=== PATIENT | female | born 1950 | race African-American/Black ===

== ENCOUNTER 2016-06-14 11:03 | Inpatient (IN) | payer OTHER ==
[2016-06-14 12:07] VITALS: BMI 28.3
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
[2016-06-14] MEDS ORDERED: guaiFENesin/D-METHORPHAN HB 10 ML UNIT-DOSE CUPS PO PRN (15:55)
[2016-06-14] MEDS ORDERED: ACETAMINOPHEN 325 MG TABLET (FP) PO PRN (15:55)
[2016-06-14] MEDS ORDERED: MAGNESIUM HYDROX 2400MG/30ML ORAL SUSPENSION 30 ML CUP PO PRN (15:55)
[2016-06-14] MEDS ORDERED: LOPERAMIDE HCL 2 MG CAPSULE PO PRN (15:55)
[2016-06-14] MEDS ORDERED: IBUPROFEN 400 MG TABLET (FP) PO PRN (15:55)
[2016-06-14] MEDS ORDERED: chlordiazePOXIDE HCL 25 MG CAPSULE PO PRN (15:55)
[2016-06-14] MEDS ORDERED: MENTHOL/PHENOL 1 EACH UD MM PRN (15:55)
[2016-06-14] MEDS ORDERED: MAGNESIUM CITRATE 300 ML BOTTLE PO PRN (15:55)
[2016-06-14] MEDS ORDERED: MAG HYDROX/AL HYDROX/SIMETH 30 ML UNIT-DOSE CUP PO PRN (15:55)
[2016-06-14] MEDS ORDERED: NICOTINE POLACRILEX 4 MG GUM BC PRN (15:55)
[2016-06-14] MEDS ORDERED: ALBUTEROL SO4 6.7 GM HFA INHALER IH PRN (16:15)
[2016-06-14] MEDS ORDERED: METHADONE HCL 10 MG TABLET (FOR DETOX USE ONLY) PO ONE ×2 (16:30→23:00)
[2016-06-14] MEDS ORDERED: HYDROCHLOROTHIAZIDE 12.5 MG CAPSULE (FP) PO SCH (16:45)
[2016-06-14] MEDS: HYDROCHLOROTHIAZIDE 25 MG TABLET (FP) PO SCH (16:46)
[2016-06-14] MEDS: NICOTINE 21 MG/24 HOURS TOPICAL PATCH TD SCH (16:48)
[2016-06-14] MEDS: chlordiazePOXIDE HCL 25 MG CAPSULE PO SCH ×2 (17:02→22:37)
[2016-06-14 18:05] LABS: URINE APPEARANCE CLEAR; URINE BILIRUBIN NEGATIVE (NEGATIVE); URINE BLOOD NEGATIVE (NEGATIVE); URINE COLOR LTYELLOW; URINE GLUCOSE (UA) NEGATIVE (NEGATIVE); URINE KETONE NEGATIVE (NEGATIVE); URINE LEUK ESTERASE NEGATIVE (NEGATIVE); URINE NITRITE NEGATIVE (NEGATIVE); URINE PROTEIN NEGATIVE (NEGATIVE); URINE UROBILINOGEN NEGATIVE E.U./dl (0.2-1.0)
[2016-06-14] MEDS: P-EPHED 60MG/TRIPROLIDI 2.5MG TABLET PO PRN (19:41)
[2016-06-14] MEDS: THIAMINE HCL 100 MG TABLET (FP) PO SCH (22:37)
[2016-06-15] MEDS: chlordiazePOXIDE HCL 25 MG CAPSULE PO SCH ×4 (05:45→22:25)
[2016-06-15 09:42] LABS: MCH 33.5 pg (25.7-33.7); MCHC 33.1 g/dl (32.0-36.0); MEAN CELL VOLUME 101.2 fl (80-96); MEAN PLT VOLUME 9.9 fl (7.5-11.1); PLATELET COUNT 269 K/MM3 (134-434); RDW 13.8 % (11.6-15.6); WHITE BLOOD COUNT 6.9 K/mm3 (4.0-10.0)
[2016-06-15] MEDS ORDERED: METHADONE HCL 10 MG TABLET (FOR DETOX USE ONLY) PO SCH (10:00)
[2016-06-15 10:13] LABS: ALBUMIN 3.2 g/dl (3.4-5.0); ALK PHOS 93 U/L (45-117); ANION GAP 12 (8-16); BILIRUBIN,TOTAL 0.5 mg/dL (0.2-1.0); CO2 24 mmol/L (21-32); CREATININE 0.8 mg/dL (0.55-1.02); GLUCOSE,RANDOM 95 mg/dL (74-106); SGOT/AST 36 U/L (15-37); SGPT/ALT 43 U/L (12-78); TOT PROT 7.1 g/dl (6.4-8.2)
[2016-06-15] MEDS: HYDROCHLOROTHIAZIDE 25 MG TABLET (FP) PO SCH (10:30)
[2016-06-15] MEDS: PRENATAL VITAMINS W/ FOLIC ACID TABLET (FP) PO SCH (10:30)
[2016-06-15] MEDS: P-EPHED 60MG/TRIPROLIDI 2.5MG TABLET PO PRN ×2 (10:32→22:26)
[2016-06-15] MEDS: NICOTINE 21 MG/24 HOURS TOPICAL PATCH TD SCH (10:32)
[2016-06-15 10:40] LABS: SICKLE CELL SCREEN NEGATIVE (NEGATIVE)
[2016-06-15] MEDS ORDERED: ONDANSETRON *ODT* 4 MG TABLET SL PRN (10:49)
--- NOTE | 2016-06-15 10:57 | PN ---
[facility] CIWA - CIWA Score Nausea/Vomitin-Int. Nausea w/Dry Heave Muscle Tremors: 2 Anxiety: 3 Agitation: 3 Paroxysmal Sweats: 3 Orientation: 0-Oriented Tacttile Disturbances: 2-Mild Itch/Numbness/Burn Auditory Disturbances: 0-None Visual Disturbances: 0-None Headache: 0-None Present CIWA-Ar Total Score: 17 S COWS - Scale Resting Pulse: 0= [place] 80 or Below Sweatin= Chills/Flushing Restless Observation: 1= Difficult to Sit Still Pupil Size: 1= Pupils >than Normal Bone or Joint Aches: 2= Severe Diffuse Aches Runny Nose/ Eye Tearin= Nasal Congestion GI Upset > 30mins: 2= Nausea/Diarrhea Tremor Observation of Outstretched Hands: 1= Tremor [place], Not Seen Yawning Observation: 1= 1-2x During Session Anxiety or Irritability: 2=Irritable/Anxious Goose Flesh Skin: 0=Smooth Skin COWS Score: 12 [facility] Progress Note (SOAP) Subjective: interrrupted sleep,sweats, shakes ,arthritis, Objective: 06/15/16 10:56 Vital Signs Temperature 97.9 F 06/15/16 10:53 Pulse Rate 77 06/15/16 10:53 Respiratory Rate 16 06/15/16 10:53 Blood Pressure 135/87 06/15/16 10:53 O2 Sat by Pulse Oximetry (%) Laboratory Tests 06/14/16 06/15/16 06/15/16 13:00 06:00 06:00 WBC 6.9 RBC 4.03 Hgb 13.5 Hct 40.8 MCV 101.2 H MCHC 33.1 RDW 13.8 Plt Count 269 MPV 9.9 Sickle Cell Screen Negative Sodium 143 Potassium 3.8 Chloride 107 Carbon Dioxide 24 Anion Gap 12 BUN 15 Creatinine 0.8 Creat Clearance w eGFR > 60 Random Glucose 95 Calcium 9.0 Total Bilirubin 0.5 AST 36 ALT 43 Alkaline Phosphatase 93 Total Protein 7.1 Albumin 3.2 L Urine Color Ltyellow Urine Appearance Clear Urine pH 6.0 Ur Specific [place] 1.018 Urine Protein Negative Urine Glucose (UA) Negative Urine Ketones Negative Urine Blood Negative Urine Nitrite Negative Urine Bilirubin Negative Urine Urobilinogen Negative Ur Leukocyte Esterase Negative pt aox3 , irritable Assessment: 06/15/16 10:57 withdrawal sxs Plan: cont. detox increase fluids zofran prn flexeril 10mg tid/prn
[2016-06-15] MEDS ORDERED: INFLUENZA VACCINE 45 MCG/0.5 ML (MDV 16-17) IM ONE (12:00)
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
[2016-06-15 19:52] LABS: URINE APPEARANCE CLEAR; URINE BILIRUBIN NEGATIVE (NEGATIVE); URINE BLOOD NEGATIVE (NEGATIVE); URINE COLOR LTYELLOW; URINE GLUCOSE (UA) NEGATIVE (NEGATIVE); URINE KETONE NEGATIVE (NEGATIVE); URINE LEUK ESTERASE NEGATIVE (NEGATIVE); URINE NITRITE NEGATIVE (NEGATIVE); URINE PROTEIN NEGATIVE (NEGATIVE); URINE UROBILINOGEN NEGATIVE E.U./dl (0.2-1.0)
[2016-06-15] MEDS: CYCLOBENZAPRINE HCL 10 MG TABLET (FP) PO PRN (22:24)
[2016-06-15] MEDS: THIAMINE HCL 100 MG TABLET (FP) PO SCH (22:24)
--- NOTE | 2016-06-15 23:39 | EKG ---
Test Reason : Blood Pressure : / mmHG Vent. Rate : 048 BPM Atrial Rate : 048 BPM P-R Int : 150 ms QRS Dur : 090 ms QT Int : 464 ms P-R-T Axes : 058 029 049 degrees QTc Int : 414 ms SINUS BRADYCARDIA POSSIBLE LEFT ATRIAL ENLARGEMENT ANTERIOR INFARCT , AGE UNDETERMINED ABNORMAL ECG NO PREVIOUS ECGS AVAILABLE Confirmed by GABBY FAUST, KATELYN ([id number]) on 06/15/2016 11:39:17 PM Referred By: Confirmed By:KATELYN PIERRE MD
[2016-06-16] MEDS: chlordiazePOXIDE HCL 25 MG CAPSULE PO SCH ×2 (07:59→10:30)
--- NOTE | 2016-06-16 10:09 | EKG ---
Test Reason : Blood Pressure : / mmHG Vent. Rate : 068 BPM Atrial Rate : 068 BPM P-R Int : 142 ms QRS Dur : 088 ms QT Int : 444 ms P-R-T Axes : 066 025 065 degrees QTc Int : 472 ms NORMAL SINUS RHYTHM POSSIBLE LEFT ATRIAL ENLARGEMENT NONSPECIFIC ST AND T WAVE ABNORMALITY ABNORMAL ECG WHEN COMPARED WITH ECG OF 14-JUN-2016 16:01, T WAVE INVERSION NO LONGER EVIDENT IN ANTERIOR LEADS NONSPECIFIC T WAVE ABNORMALITY NOW EVIDENT IN LATERAL LEADS QT HAS LENGTHENED Confirmed by MITZY FAUST, SHOLA ([id number]) on 06/16/2016 10:08:55 AM Referred By: Confirmed By:SHOLA FORRESTER MD
[2016-06-16] MEDS: PRENATAL VITAMINS W/ FOLIC ACID TABLET (FP) PO SCH (10:30)
[2016-06-16] MEDS: METHADONE HCL 5 MG TABLET (FOR DETOX USE ONLY) PO SCH (10:30)
[2016-06-16] MEDS: NICOTINE 21 MG/24 HOURS TOPICAL PATCH TD SCH (10:30)
[2016-06-16] MEDS: HYDROCHLOROTHIAZIDE 25 MG TABLET (FP) PO SCH (10:30)
--- NOTE | 2016-06-16 11:01 | PN ---
[facility] CIWA - CIWA Score Nausea/Vomitin-No Nausea/No Vomiting Muscle Tremors: 4-Moderate,w/Arms Extend Anxiety: 3 Agitation: 4-Moderately Restless Paroxysmal Sweats: 3 Orientation: 0-Oriented Tacttile Disturbances: 0-None Auditory Disturbances: 0-None Visual Disturbances: 0-None Headache: 1-Very Mild CIWA-Ar Total Score: 15 [facility] COWS - Scale Resting Pulse: 0= [place] 80 or Below Sweatin=Flushed/Facial Moisture Restless Observation: 1= Difficult to Sit Still Pupil Size: 0= Normal to Room Light Bone or Joint Aches: 2= Severe Diffuse Aches Runny Nose/ Eye Tearin= None GI Upset > 30mins: 2= Nausea/Diarrhea Tremor Observation of Outstretched Hands: 2= Slight Tremor Visible Yawning Observation: 2= >3x During Session Anxiety or Irritability: 2=Irritable/Anxious Goose Flesh Skin: 3=[place] COWS Score: 16 S Progress Note (SOAP) Subjective: sweats nausea body aches irritable Objective: 06/16/16 11:00 Vital Signs Temperature 99.0 F 06/16/16 10:02 Pulse Rate 70 06/16/16 10:02 Respiratory Rate 16 06/16/16 10:02 Blood Pressure 139/92 06/16/16 10:02 O2 Sat by Pulse Oximetry (%) Laboratory Tests 06/14/16 06/15/16 06/15/16 13:00 06:00 06:00 WBC 6.9 RBC 4.03 Hgb 13.5 Hct 40.8 MCV 101.2 H MCHC 33.1 RDW 13.8 Plt Count 269 MPV 9.9 Sickle Cell Screen Negative Sodium 143 Potassium 3.8 Chloride 107 Carbon Dioxide 24 Anion Gap 12 BUN 15 Creatinine 0.8 Creat Clearance w eGFR > 60 Random Glucose 95 Calcium 9.0 Total Bilirubin 0.5 AST 36 ALT 43 Alkaline Phosphatase 93 Total Protein 7.1 Albumin 3.2 L Urine Color Ltyellow Urine Appearance Clear Urine pH 6.0 Ur Specific [place] 1.018 Urine Protein Negative Urine Glucose (UA) Negative Urine Ketones Negative Urine Blood Negative Urine Nitrite Negative Urine Bilirubin Negative Urine Urobilinogen Negative Ur Leukocyte Esterase Negative RPR Titer 06/15/16 06/15/16 06:00 19:37 WBC RBC Hgb Hct MCV MCHC RDW Plt Count MPV Sickle Cell Screen Sodium Potassium Chloride Carbon Dioxide Anion Gap BUN Creatinine Creat Clearance w eGFR Random Glucose Calcium Total Bilirubin AST ALT Alkaline Phosphatase Total Protein Albumin Urine Color Ltyellow Urine Appearance Clear Urine pH 5.0 Ur Specific [place] 1.016 Urine Protein Negative Urine Glucose (UA) Negative Urine Ketones Negative Urine Blood Negative Urine Nitrite Negative Urine Bilirubin Negative Urine Urobilinogen Negative Ur Leukocyte Esterase Negative RPR Titer Nonreactive awake/alert ambulating no acute distress Assessment: 06/16/16 11:01 withdrawal sx Plan: continue detox increase fluids zofran prn
[2016-06-16] MEDS: chlordiazePOXIDE 5 MG CAPSULE PO SCH ×2 (17:46→22:22)
[2016-06-16] MEDS: FLUOCINONIDE 0.05% CREAM (15 GM TUBE) TP SCH ×3 (17:54→22:58)
[2016-06-16] MEDS: CYCLOBENZAPRINE HCL 10 MG TABLET (FP) PO PRN (22:22)
[2016-06-16] MEDS: diphenhydrAMINE HCL 50 MG CAPSULE PO PRN (22:23)
[2016-06-16] MEDS: THIAMINE HCL 100 MG TABLET (FP) PO SCH (22:23)
[2016-06-17] MEDS: chlordiazePOXIDE 5 MG CAPSULE PO SCH ×2 (05:58→10:56)
--- NOTE | 2016-06-17 10:31 | PN ---
[facility] Progress Note (SOAP) Subjective: sweats shakes diarrhea Objective: 06/17/16 10:31 Vital Signs Temperature 98.1 F 06/17/16 06:29 Pulse Rate 75 06/17/16 06:29 Respiratory Rate 18 06/17/16 06:29 Blood Pressure 110/71 06/17/16 06:29 O2 Sat by Pulse Oximetry (%) awake/alert ambulating no acute distress Assessment: 06/17/16 10:36 withdrawal sx Plan: continue detox increase fluids immodium prn
[2016-06-17] MEDS: FLUOCINONIDE 0.05% CREAM (15 GM TUBE) TP SCH ×4 (10:55→23:33)
[2016-06-17] MEDS: PRENATAL VITAMINS W/ FOLIC ACID TABLET (FP) PO SCH (10:56)
[2016-06-17] MEDS: HYDROCHLOROTHIAZIDE 25 MG TABLET (FP) PO SCH (10:56)
[2016-06-17] MEDS: METHADONE HCL 5 MG TABLET (FOR DETOX USE ONLY) PO SCH (10:56)
[2016-06-17] MEDS: NICOTINE 21 MG/24 HOURS TOPICAL PATCH TD SCH (10:56)
[2016-06-17] MEDS: chlordiazePOXIDE HCL 10 MG CAPSULE PO SCH ×2 (17:54→22:28)
[2016-06-17] MEDS: CYCLOBENZAPRINE HCL 10 MG TABLET (FP) PO PRN (22:28)
[2016-06-17] MEDS: THIAMINE HCL 100 MG TABLET (FP) PO SCH (22:28)
[2016-06-17] MEDS: diphenhydrAMINE HCL 50 MG CAPSULE PO PRN (22:29)
[2016-06-18] MEDS: P-EPHED 60MG/TRIPROLIDI 2.5MG TABLET PO PRN (00:42)
[2016-06-18] MEDS: chlordiazePOXIDE HCL 10 MG CAPSULE PO SCH ×2 (05:31→10:16)
[2016-06-18] MEDS ORDERED: METHADONE HCL 10 MG TABLET (FOR DETOX USE ONLY) PO SCH (10:00)
[2016-06-18] MEDS: PRENATAL VITAMINS W/ FOLIC ACID TABLET (FP) PO SCH (10:16)
[2016-06-18] MEDS: HYDROCHLOROTHIAZIDE 25 MG TABLET (FP) PO SCH (10:16)
[2016-06-18] MEDS: NICOTINE 21 MG/24 HOURS TOPICAL PATCH TD SCH (10:16)
[2016-06-18] MEDS: FLUOCINONIDE 0.05% CREAM (15 GM TUBE) TP SCH ×4 (10:17→22:53)
--- NOTE | 2016-06-18 11:07 | PN ---
[facility] Progress Note (SOAP) Subjective: sweats anxious Objective: 06/18/16 11:06 Vital Signs Temperature 98.1 F 06/18/16 10:11 Pulse Rate 82 06/18/16 10:11 Respiratory Rate 16 06/18/16 10:11 Blood Pressure 118/75 06/18/16 10:11 O2 Sat by Pulse Oximetry (%) awake/alert ambulating no acute distress Assessment: 06/18/16 11:06 withdrawal sx Plan: continue detox increase fluids d/c in am
--- NOTE | 2016-06-18 20:25 | PN ---
[id number] peer, alert oiented x 3, ambulate with walker, denies pain denies alteration sensory motor function right inner tight skin intact no redness none tender, no burn olga lidia noted continue detox
[2016-06-18] MEDS: diphenhydrAMINE HCL 50 MG CAPSULE PO PRN (22:52)
[2016-06-18] MEDS: CYCLOBENZAPRINE HCL 10 MG TABLET (FP) PO PRN (22:52)
[2016-06-18] MEDS: THIAMINE HCL 100 MG TABLET (FP) PO SCH (22:52)
[2016-06-19] MEDS ORDERED: METHADONE HCL 5 MG TABLET (FOR DETOX USE ONLY) PO SCH (06:00)
[2016-06-19 07:01] VITALS: BP 131/56; PULSE 71; TEMP 98.8
--- NOTE | 2016-06-19 17:03 | DS ---
[facility] Detox Discharge Summary Admission Date: 06/14/16 Discharge Date: 06/19/16 - History Present History: Alcohol Dependence, Opioid Dependence Additional Comments: ADVISED PATIENT TO FOLLOW-UP WITH [facility] / REHAB MEDICAL PROVIDER AFTER DISCHARGE FROM DETOX FOR GENERAL MEDICAL ASSESSMENT AND FOR ABNORMAL ADMISSION LAB VALUES. Pertinent Past History: Asthma, HTN. - Physical Exam Results Vital Signs: Vital Signs Temperature 98.8 F 06/19/16 06:00 Pulse Rate 71 06/19/16 06:00 Respiratory Rate 18 06/19/16 06:00 Blood Pressure 131/56 06/19/16 06:00 O2 Sat by Pulse Oximetry (%) Pertinent Admission Physical Exam Findings: WITHDRAWAL SYMPTOMS. Laboratory Last Values WBC 6.9 K/mm3 (4.0-10.0) 06/15/16 06:00 RBC 4.03 M/mm3 (3.60-5.2) 06/15/16 06:00 Hgb 13.5 GM/dL (10.7-15.3) 06/15/16 06:00 Hct 40.8 % (32.4-45.2) 06/15/16 06:00 MCV 101.2 fl (80-96) H 06/15/16 06:00 MCHC 33.1 g/dl (32.0-36.0) 06/15/16 06:00 RDW 13.8 % (11.6-15.6) 06/15/16 06:00 Plt Count 269 K/MM3 (134-434) 06/15/16 06:00 MPV 9.9 fl (7.5-11.1) 06/15/16 06:00 Sickle Cell Screen Negative (NEGATIVE) 06/15/16 06:00 Sodium 143 mmol/L (136-145) 06/15/16 06:00 Potassium 3.8 mmol/L (3.5-5.1) 06/15/16 06:00 Chloride 107 mmol/L (98-107) 06/15/16 06:00 Carbon Dioxide 24 mmol/L (21-32) 06/15/16 06:00 Anion Gap 12 (8-16) 06/15/16 06:00 BUN 15 mg/dL (7-18) 06/15/16 06:00 Creatinine 0.8 mg/dL (0.55-1.02) 06/15/16 06:00 Creat Clearance w eGFR > 60 (>60) 06/15/16 06:00 POC Glucometer 123 UNITS (()) 06/17/16 15:47 Random Glucose 95 mg/dL (74-106) 06/15/16 06:00 Calcium 9.0 mg/dL (8.5-10.1) 06/15/16 06:00 Total Bilirubin 0.5 mg/dL (0.2-1.0) 06/15/16 06:00 AST 36 U/L (15-37) 06/15/16 06:00 ALT 43 U/L (12-78) 06/15/16 06:00 Alkaline Phosphatase 93 U/L (45-117) 06/15/16 06:00 Total Protein 7.1 g/dl (6.4-8.2) 06/15/16 06:00 Albumin 3.2 g/dl (3.4-5.0) L 06/15/16 06:00 Urine Color Ltyellow 06/15/16 19:37 Urine Appearance Clear 06/15/16 19:37 Urine pH 5.0 (5.0-8.0) 06/15/16 19:37 Ur Specific [place] 1.016 (1.001-1.035) 06/15/16 19:37 Urine Protein Negative (NEGATIVE) 06/15/16 19:37 Urine Glucose (UA) Negative (NEGATIVE) 06/15/16 19:37 Urine Ketones Negative (NEGATIVE) 06/15/16 19:37 Urine Blood Negative (NEGATIVE) 06/15/16 19:37 Urine Nitrite Negative (NEGATIVE) 06/15/16 19:37 Urine Bilirubin Negative (NEGATIVE) 06/15/16 19:37 Urine Urobilinogen Negative E.U./dl (0.2-1.0) 06/15/16 19:37 Ur Leukocyte Esterase Negative (NEGATIVE) 06/15/16 19:37 RPR Titer Nonreactive (NONREACTIVE) 06/15/16 06:00 LABS NOTED. - Treatment Hospital Course: Detox Protocol Followed, Detoxed Safely, Responded well, Discharged Condition Good Patient has Accepted a Rehab Referral to: NO -PT. ELECTING TO GO HOME AT THIS TIME, WILL LOOK INTO OUTPATIENT PROGRAM - Medication Discharge Medications: Ambulatory Orders Albuterol Sulfate Inhaler - [Ventolin Hfa Inhaler -] 1 - 2 inh PO QID 06/14/16 Hydrochlorothiazide [Hctz -] 12.5 mg PO DAILY 06/14/16 Fluocinonide 0.05% Cream [Lidex 0.05% Cream -] 1 applic TP QID #1 tube 06/17/16 - Diagnosis (1) Alcohol dependence with uncomplicated withdrawal Status: Acute (2) Insomnia Status: Chronic Qualifiers: Insomnia type: unspecified Qualified Code(s): G47.00 - Insomnia, unspecified (3) Nicotine dependence Status: Chronic Qualifiers: Nicotine product type: cigarettes Substance use status: uncomplicated Qualified Code(s): F17.210 - Nicotine dependence, cigarettes, uncomplicated (4) Opioid dependence with withdrawal Status: Acute (5) Asthma Status: Chronic Qualifiers: Asthma severity: moderate persistent Asthma complication type: uncomplicated Qualified Code(s): J45.40 - Moderate persistent asthma, uncomplicated (6) Hypertension Status: Chronic Qualifiers: Hypertension type: essential hypertension Qualified Code(s): I10 - Essential (primary) hypertension (7) Uses walker Status: Chronic - AMA Did Patient Leave Against Medical Advice: No
== END 2016-06-19 11:00 | disposition home or self-care (01) | DRG 897 ==
LOC: YASAS 11:03 → Y6N 14:02
PROVIDERS: ADMIT Internal Medicine Addiction Medicine; ATTEND Internal Medicine Addiction Medicine
PROC: HZ2ZZZZ Detoxification Services for Substance Abuse Treatment (ICD-10-PCS; principal; 2016-06-18)
DX: F11.23 Opioid dependence with withdrawal (principal); F10.230 Alcohol dependence with withdrawal, uncomplicated; F17.210 Nicotine dependence, cigarettes, uncomplicated; G47.00 Insomnia, unspecified; I10 Essential (primary) hypertension; J45.40 Moderate persistent asthma, uncomplicated; R26.2 Difficulty in walking, not elsewhere classified
CPT/HCPCS: 36415; 71020-TC; 80053; 81003; 85027; 85660; 86593; 93005; 93010

== ENCOUNTER 2017-05-18 10:02 | Inpatient (IN) | payer OTHER ==
[2017-05-18 11:13] VITALS: BMI 27.4
--- NOTE | 2017-05-18 13:35 | HP ---
CIWA Score - CIWA Score Nausea/Vomitin-Mild Nausea/No Vomiting Muscle Tremors: 4-Moderate,w/Arms Extend Anxiety: 4-Mod. Anxious/Guarded Agitation: 4-Moderately Restless Paroxysmal Sweats: 1-Minimal Palms Moist Orientation: 0-Oriented Tacttile Disturbances: 1-Very Mild Itch/Numbness Auditory Disturbances: 0-None Visual Disturbances: 0-None Headache: 2-Mild CIWA-Ar Total Score: 17 Admission ROS S - HPI Chief Complaint: withdrawal sx Allergies/Adverse Reactions: Allergies Allergy/AdvReac Type Severity Reaction Status Date / Time zolpidem tartrate Allergy Intermediate Hives Verified 05/18/17 12:08 [From Ambien] History of Present Illness: 67 years old female with long history of alcohol nicotine dependence has hypertension arthritis of the knees ambulate with walker nasal specum deviation treated with cetirizine methadone program 30 mg daily bipolar ii is admitted to detox Exam Limitations: No Limitations - Ebola screening Have you traveled outside of the country in the last 21 days: No (N) Have you had contact with anyone from an Ebola affected area: No Have you been sick,other than usual withdrawal symptoms: No Do you have a fever: No - Review of Systems Constitutional: Changes in sleep, Weight Stable EENT: reports: Hearing Loss (left ear hearing aid at home), Nose Congestion ( deviated nasal spectum) Respiratory: reports: No Symptoms reported Cardiac: reports: No Symptoms Reported GI: reports: Nausea, Poor Fluid Intake, Abdominal cramping : reports: No Symptoms Reported Musculoskeletal: reports: Joint Pain (knees pain arthritis) Integumentary: reports: Change in Color (back and upper arms), Other (eczema elbows psoriasis hands) Neuro: reports: Tremors Endocrine: reports: No Symptoms Reported Hematology: reports: No Symptoms Reported Psychiatric: reports: Judgement Intact, Orientated x3, Anxious, Depressed Other Systems: Reviewed and Negative Patient History - Patient Medical History Hx Anemia: No Hx Asthma: Yes (Pt is on MDI for asthma.) Hx Chronic Obstructive Pulmonary Disease (COPD): No Hx Cancer: No Hx Cardiac Disorders: No Hx Congestive Heart Failure: No Hx Hypertension: Yes (on meds.) Hx Hypercholesterolemia: No Hx Pacemaker: No HX Cerebrovascular Accident: No Hx Seizures: No Hx Diabetes: No Hx Gastrointestinal Disorders: No Hx Liver Disease: No Hx Genitourinary Disorders: No Hx Sexually Transmitted Disorders: No Hx Renal Disease (ESRD): No Hx Thyroid Disease: No Hx Human Immunodeficiency Virus (HIV): No (NEGATIVE HX) Hx Hepatitis C: Yes (NO TREATMENT) Hx Depression: No Hx Suicide Attempt: Yes (Tried to cut wrist in the 20 's.) Hx Bipolar Disorder: Yes Hx Schizophrenia: No - Patient Surgical History Past Surgical History: Yes Hx Neurologic Surgery: No Hx Cataract Extraction: No Hx Cardiac Surgery: No Hx Lung Surgery: No Hx Breast Surgery: No Hx Breast Biopsy: No Hx Abdominal Surgery: No Hx Appendectomy: No Hx Cholecystectomy: No Hx Genitourinary Surgery: No Hx Section: Yes (X 1) Hx Orthopedic Surgery: No Hx Hysterectomy: Yes (TOTAL SX AT 43 YRS OLD) Other Surgical History: Ectopic Prolapse uterus Ovarian cyst sx hysterectomy Anesthesia Reaction: No (R bunionectomy 12/28) - PPD History Previous Implant?: Yes Documented Results: Positive w/o proof Implanted On Prior [facility] Admission?: No Results: CXR 06/28 PPD to be Administered?: No - Reproductive History Patient is a Female of Child Bearing Age (11 -55 yrs old): No Patient : No - Smoking Cessation Smoking history: Current every day smoker Have you smoked in the past 12 months: Yes Aproximately how many cigarettes per day: 20 Cigars Per Day: 0 Hx Chewing Tobacco Use: No Initiated information on smoking cessation: Yes 'Breaking Loose' booklet given: 05/18/17 - Substance & Tx. History Hx Alcohol Use: Yes Hx Substance Use: No Substance Use Type: Alcohol Hx Substance Use Treatment: Yes (06/2016 [facility]) - Substances Abused Alcohol Route: Oral Frequency: Daily Amount used: 2 pints vodka Age of first use: 19 Date of Last Use: 05/17/17 Family Disease History - Family Disease History Family Disease History: Diabetes: Sister (), Heart Disease: Father ( STROKE-), Mother (HEART FAILURE-) Admission Physical Exam S - Vital Signs Vital Signs: Vital Signs - 24 hr 05/18/17 11:09 Temperature 97.5 F L Pulse Rate 62 Respiratory 20 Rate Blood Pressure 152/79 - Physical General Appearance: Yes: Appropriately Dressed, Mild Distress, Tremorous, Irritable, Sweating, Anxious HEENTM: Yes: Hearing grossly Normal, Normal ENT Inspection, Normocephalic, Normal Voice Respiratory: Yes: Chest Non-Tender, No Respiratory Distress, No Accessory Muscle Use, Wheezing, Expiration Neck: Yes: Supple, Trachea in good position Breast: Yes: Breasts Symetrical Cardiology: Yes: Regular Rhythm, Regular Rate, S1, S2 Abdominal: Yes: Non Tender, Soft, Increased Bowel Sounds Genitourinary: Yes: Within Normal Limits Back: Yes: Normal Inspection Musculoskeletal: Yes: full range of Motion, Gait Steady Extremities: Yes: Normal Inspection (eczema psoriasis), Normal Range of Motion, Non-Tender, Tremors Neurological: Yes: Fully Oriented, Alert, Motor Strength 5/5, Normal Response, Depressed Affect Integumentary: Yes: Warm, Other (hands arms backs elbows) Lymphatic: Yes: Within Normal Limits - Diagnostic (1) Alcohol dependence with uncomplicated withdrawal Current Visit: Yes Status: Acute (2) Asthma Current Visit: Yes Status: Chronic Qualifiers: Asthma severity: mild Asthma complication type: uncomplicated (3) Hypertension Current Visit: Yes Status: Chronic Qualifiers: Hypertension type: essential hypertension Qualified Code(s): I10 - Essential (primary) hypertension (4) Nicotine dependence Current Visit: Yes Status: Acute Qualifiers: Nicotine product type: cigarettes Substance use status: in withdrawal Qualified Code(s): F17.213 - Nicotine dependence, cigarettes, with withdrawal Cleared for Admission S - Detox or Rehab [facility] Level of Care: Medically Managed Detox Regimen/Protocol: Librium [facility] Breath Alcohol Content Breath Alcohol Content: 0 Urine Pregancy Test - Result Urine Test Results: Negative- NO Line Present Urine Drug Screen - Results Drug Screen Negative: No Urine Drug Screen Results: MTD-Methadone
[2017-05-18] MEDS ORDERED: MAGNESIUM CITRATE 300 ML BOTTLE PO PRN (13:45)
[2017-05-18] MEDS ORDERED: guaiFENesin/D-METHORPHAN HB 10 ML UNIT-DOSE CUPS PO PRN (13:45)
[2017-05-18] MEDS ORDERED: MAG HYDROX/AL HYDROX/SIMETH 30 ML UNIT-DOSE CUP PO PRN (13:45)
[2017-05-18] MEDS ORDERED: NICOTINE POLACRILEX 4 MG GUM BUC PRN (13:45)
[2017-05-18] MEDS ORDERED: MENTHOL/PHENOL 1 EACH UD MM PRN (13:45)
[2017-05-18] MEDS ORDERED: LOPERAMIDE HCL 2 MG CAPSULE PO PRN (13:45)
[2017-05-18] MEDS ORDERED: ACETAMINOPHEN 325 MG TABLET (FP) PO PRN (13:45)
[2017-05-18] MEDS ORDERED: IBUPROFEN 400 MG TABLET (FP) PO PRN (13:45)
[2017-05-18] MEDS ORDERED: P-EPHED 60MG/TRIPROLIDI 2.5MG TABLET PO PRN (13:45)
[2017-05-18] MEDS ORDERED: MAGNESIUM HYDROX 2400MG/30ML ORAL SUSPENSION 30 ML CUP PO PRN (13:45)
[2017-05-18] MEDS ORDERED: ALBUTEROL SO4 18 GM HFA INHALER IH PRN (13:47)
[2017-05-18] MEDS ORDERED: ALBUTEROL SO4 0.083% IH SOL 2.5 MG/3 ML VIAL.NEB. NEB PRN (13:50)
[2017-05-18] MEDS ORDERED: COLLOIDAL OATMEAL 1 BAR EACH TP PRN (13:54)
[2017-05-18] MEDS ORDERED: LOSARTAN POTASSIUM 25 MG TABLET PO SCH (14:00)
[2017-05-18] MEDS: FLUOCINONIDE 0.05% CREAM (15 GM TUBE) TP SCH ×4 (15:41→22:24)
[2017-05-18] MEDS: amLODIPine BESYLATE 5 MG TABLET (FP) PO SCH (15:41)
[2017-05-18] MEDS: NICOTINE 21 MG/24 HOURS TOPICAL PATCH TD SCH (15:44)
[2017-05-18] MEDS: MINERAL OIL/PETROLAT/WATER TOPICAL CREAM 113 GM JAR TP SCH (22:19)
[2017-05-18] MEDS: THIAMINE HCL 100 MG TABLET (FP) PO SCH (22:19)
[2017-05-18] MEDS: chlordiazePOXIDE HCL 25 MG CAPSULE PO SCH (22:19)
[2017-05-18 22:51] LABS: URINE APPEARANCE CLEAR; URINE BILIRUBIN NEGATIVE (NEGATIVE); URINE BLOOD NEGATIVE (NEGATIVE); URINE COLOR YELLOW; URINE GLUCOSE (UA) NEGATIVE (NEGATIVE); URINE KETONE NEGATIVE (NEGATIVE); URINE LEUK ESTERASE NEGATIVE (NEGATIVE); URINE NITRITE NEGATIVE (NEGATIVE); URINE PROTEIN NEGATIVE (NEGATIVE); URINE UROBILINOGEN NEGATIVE mg/dL (0.2-1.0)
[2017-05-19] MEDS: chlordiazePOXIDE HCL 25 MG CAPSULE PO PRN (01:36)
[2017-05-19] MEDS: chlordiazePOXIDE HCL 25 MG CAPSULE PO SCH ×4 (05:46→22:06)
--- NOTE | 2017-05-19 07:39 | CONSULT ---
[facility] Psychiatric Consult - Data Date of interview: 05/19/17 Admission source: [facility] Identifying data: THIS IS 67 YEARS old, AA female, , mother of two, on SSI and AAD, living alone, with histoey of psuchiatric hospitalizationons, with long history of alcohol and nicotine dependence, is here for detoxification. Substance Abuse History: As per [facility] rteport: Smoking Cessation. Smoking history: Current every day smoker. Have you smoked in the past 12 months: Yes. Aproximately how many cigarettes per day: 20. Cigars Per Day: 0. Hx Chewing Tobacco Use: No. Initiated information on smoking cessation: Yes. 'Breaking Loose' booklet given: 05/18/17. - Substance & Tx. History. Hx Alcohol Use: Yes. Hx Substance Use: No. Substance Use Type: Alcohol. Hx Substance Use Treatment: Yes (06/2016 [facility]). - Substances Abused. Alcohol. Route: Oral. Frequency: Daily. Amount used: 2 pints vodka. Age of first use: 19. Date of Last Use: 05/17/17 Medical History: Patient reports history of hypertension, arthritis of both knees ambulates with walker, reports nasal specum deviation treated with cetirizine, reports on MMTP , 30 mg daily Psychiatric History: Patient reports history of Bipolar disorder, reports most recent psychiatric admission on aftyer suicidal attempt by cuttimg her left wrist, no suicidal attempts since then, reports taking prior to admission: Zoloft 50mg po qhs Physical/Sexual Abuse/Trauma History: Unclear Additional Comment: Zoloft 50mg poqd Mental Status Exam - Mental Status Exam Alert and Oriented to: Place, Person Cognitive Function: Fair Patient Appearance: Well Groomed Mood: Apprehensive Affect: Mood Congruent Patient Behavior: Cooperative Speech Pattern: Appropriate Voice Loudness: Mildly Soft/Quiet Thought Process: Goal Oriented Thought Disorder: Being Controlled Hallucinations: Denies Suicidal Ideation: Denies Homicidal Ideation: Denies Insight/Judgement: Fair Sleep: Difficulty falling asleep Appetite: Weight gain Muscle strength/Tone: Mild Hypotonicity Gait/Station: Deferred Additional Comments: Zoloft 50mg poqd Psychiatric Findings - Problem List ([place] 1, 2,3) (1) Bipolar disorder Current Visit: Yes Status: Suspected (2) Drug-induced mood disorder Current Visit: Yes Status: Acute (3) Alcohol dependence with uncomplicated withdrawal Current Visit: Yes Status: Acute (4) Nicotine dependence Current Visit: Yes Status: Acute Qualifiers: Nicotine product type: cigarettes Substance use status: in withdrawal Qualified Code(s): F17.213 - Nicotine dependence, cigarettes, with withdrawal (5) Opioid dependence with withdrawal Current Visit: No Status: Acute - Initial Treatment Plan Initial Treatment Plan: Zoloft 50mg poqd
[2017-05-19] MEDS: METHADONE HCL 10 MG TABLET PO SCH (07:48)
[2017-05-19] MEDS: FLUOCINONIDE 0.05% CREAM (15 GM TUBE) TP SCH ×4 (09:15→22:08)
--- NOTE | 2017-05-19 09:57 | PN ---
[facility] CIWA - CIWA Score Nausea/Vomitin-Mild Nausea/No Vomiting Muscle Tremors: 4-Moderate,w/Arms Extend Anxiety: 4-Mod. Anxious/Guarded Agitation: 4-Moderately Restless Paroxysmal Sweats: 1-Minimal Palms Moist Orientation: 0-Oriented Tacttile Disturbances: 1-Very Mild Itch/Numbness Auditory Disturbances: 0-None Visual Disturbances: 0-None Headache: 0-None Present CIWA-Ar Total Score: 15 [facility] Progress Note (SOAP) Subjective: sweat tremor anxiety restlessness irritable Objective: 05/19/17 09:56 Vital Signs Temperature 97.9 F 05/19/17 06:30 Pulse Rate 62 05/19/17 06:30 Respiratory Rate 19 05/19/17 06:30 Blood Pressure 146/75 05/19/17 06:30 O2 Sat by Pulse Oximetry (%) Laboratory Last Values Urine Color Yellow 05/18/17 19:45 Urine Appearance Clear 05/18/17 19:45 Urine pH 6.0 (5.0-8.0) 05/18/17 19:45 Ur Specific [place] 1.019 (1.001-1.035) 05/18/17 19:45 Urine Protein Negative (NEGATIVE) 05/18/17 19:45 Urine Glucose (UA) Negative (NEGATIVE) 05/18/17 19:45 Urine Ketones Negative (NEGATIVE) 05/18/17 19:45 Urine Blood Negative (NEGATIVE) 05/18/17 19:45 Urine Nitrite Negative (NEGATIVE) 05/18/17 19:45 Urine Bilirubin Negative (NEGATIVE) 05/18/17 19:45 Urine Urobilinogen Negative mg/dL (0.2-1.0) 05/18/17 19:45 Ur Leukocyte Esterase Negative (NEGATIVE) 05/18/17 19:45 HIV 1&2 Antibody Screen Negative 05/18/17 13:30 HIV P24 Antigen Negative 05/18/17 13:30 lab noted Assessment: 05/19/17 09:57 withdrawal sx Plan: continue detox
[2017-05-19 10:28] LABS: CHLORIDE 106 mmol/L (98-107); POTASSIUM 4.2 mmol/L (3.5-5.1); SODIUM 142 mmol/L (136-145)
[2017-05-19] MEDS: LOSARTAN POTASSIUM 50 MG TABLET (FP) PO SCH (10:34)
[2017-05-19] MEDS: PRENATAL VITAMINS W/ FOLIC ACID TABLET (FP) PO SCH (10:34)
[2017-05-19] MEDS: amLODIPine BESYLATE 5 MG TABLET (FP) PO SCH (10:34)
[2017-05-19] MEDS: NICOTINE 21 MG/24 HOURS TOPICAL PATCH TD SCH (10:35)
[2017-05-19 10:37] LABS: ALBUMIN 3.1 g/dl (3.4-5.0); ALK PHOS 138 U/L (45-117); ANION GAP 11 (8-16); BILIRUBIN,TOTAL 0.5 mg/dL (0.2-1.0); BLOOD UREA NITROGEN 20 mg/dL (7-18); CALCIUM 8.7 mg/dL (8.5-10.1); CO2 25 mmol/L (21-32); CREATININE 0.8 mg/dL (0.55-1.02); GLUCOSE,RANDOM 97 mg/dL (74-106); SGOT/AST 80 U/L (15-37); SGPT/ALT 70 U/L (12-78); TOT PROT 7.6 g/dl (6.4-8.2)
[2017-05-19 10:41] LABS: HEMATOCRIT 37.9 % (32.4-45.2); HEMOGLOBIN 12.9 GM/dL (10.7-15.3); MCHC 34.1 g/dl (32.0-36.0); MEAN CELL VOLUME 99.9 fl (80-96); MEAN PLT VOLUME 9.6 fl (7.5-11.1); PLATELET COUNT 287 K/MM3 (134-434); RDW 14.1 % (11.6-15.6); WHITE BLOOD COUNT 7.1 K/mm3 (4.0-10.0)
--- NOTE | 2017-05-19 11:18 | PN ---
[facility] Progress Note Note: S/P BUNION SURGERY OF RIGHT FOOT,SCAR OF RIGHT FOOT,ULCER OF RIGHT FOOT,SIZE 0.2 CM, BACITRACIN OINTMENT BID
[2017-05-19] MEDS ORDERED: FLU VACCINE QUAD 60 MCG/0.5 ML (MDV 17-18) IM ONE (12:00)
[2017-05-19] MEDS ORDERED: PNEUMOC 13-VAL CONJ-DIP CRM/PF 0.5 ML DISP.SYRIN IM ONE (12:00)
[2017-05-19] MEDS: BACITRACIN 0.9 GM PACKET TP SCH ×2 (12:02→22:06)
--- NOTE | 2017-05-19 12:27 | EKG ---
Test Reason : Blood Pressure : / mmHG Vent. Rate : 053 BPM Atrial Rate : 053 BPM P-R Int : 146 ms QRS Dur : 098 ms QT Int : 466 ms P-R-T Axes : 072 033 046 degrees QTc Int : 437 ms SINUS BRADYCARDIA OTHERWISE NORMAL ECG WHEN COMPARED WITH ECG OF 15-JUN-2016 09:05, NONSPECIFIC T WAVE ABNORMALITY NO LONGER EVIDENT IN LATERAL LEADS Confirmed by MAIKOL FAUST, TSERING ([id number]) on 05/19/2017 12:26:56 PM Referred By: Confirmed By:TSERING LASSITER MD
[2017-05-19] MEDS ORDERED: PATIENT'S OWN MEDICATION (NON-FORMULARY) (Cetirizine Hcl 10 MG) PO SCH (22:00)
[2017-05-19] MEDS ORDERED: LORATADINE PO SCH (22:00)
[2017-05-19] MEDS: LORATADINE 10 MG TABLET PO SCH (22:06)
[2017-05-19] MEDS: SERTRALINE HCL 50 MG TABLET (FP) PO SCH (22:07)
[2017-05-19] MEDS: THIAMINE HCL 100 MG TABLET (FP) PO SCH (22:07)
[2017-05-20] MEDS: chlordiazePOXIDE HCL 25 MG CAPSULE PO PRN (02:00)
[2017-05-20] MEDS: METHADONE HCL 10 MG TABLET PO SCH (05:23)
[2017-05-20] MEDS: chlordiazePOXIDE HCL 25 MG CAPSULE PO SCH ×3 (05:23→17:41)
[2017-05-20] MEDS: BACITRACIN 0.9 GM PACKET TP SCH ×2 (10:35→22:25)
[2017-05-20] MEDS: amLODIPine BESYLATE 5 MG TABLET (FP) PO SCH (10:36)
[2017-05-20] MEDS: NICOTINE 21 MG/24 HOURS TOPICAL PATCH TD SCH (10:36)
[2017-05-20] MEDS: FLUOCINONIDE 0.05% CREAM (15 GM TUBE) TP SCH ×3 (10:36→17:40)
[2017-05-20] MEDS: LOSARTAN POTASSIUM 50 MG TABLET (FP) PO SCH (10:36)
[2017-05-20] MEDS: PRENATAL VITAMINS W/ FOLIC ACID TABLET (FP) PO SCH (10:36)
--- NOTE | 2017-05-20 12:11 | PN ---
S CIWA - CIWA Score Nausea/Vomitin Muscle Tremors: 2 Anxiety: 3 Agitation: 2 Paroxysmal Sweats: 3 Orientation: 0-Oriented Tacttile Disturbances: 2-Mild Itch/Numbness/Burn Auditory Disturbances: 0-None Visual Disturbances: 0-None Headache: 0-None Present CIWA-Ar Total Score: 14 S Progress Note (SOAP) Subjective: interrupted sleep, sweats Objective: 05/20/17 12:11 Vital Signs Temperature 99.1 F 05/20/17 09:45 Pulse Rate 67 05/20/17 09:45 Respiratory Rate 16 05/20/17 09:45 Blood Pressure 134/73 05/20/17 09:45 O2 Sat by Pulse Oximetry (%) Laboratory Tests 05/18/17 05/18/17 05/19/17 13:30 19:45 06:00 WBC 7.1 RBC 3.80 Hgb 12.9 Hct 37.9 MCV 99.9 H MCH 34.0 H MCHC 34.1 RDW 14.1 Plt Count 287 MPV 9.6 Sodium Potassium Chloride Carbon Dioxide Anion Gap BUN Creatinine Creat Clearance w eGFR Random Glucose Calcium Total Bilirubin AST ALT Alkaline Phosphatase Total Protein Albumin Urine Color Yellow Urine Appearance Clear Urine pH 6.0 Ur Specific [place] 1.019 Urine Protein Negative Urine Glucose (UA) Negative Urine Ketones Negative Urine Blood Negative Urine Nitrite Negative Urine Bilirubin Negative Urine Urobilinogen Negative Ur Leukocyte Esterase Negative RPR Titer HIV 1&2 Antibody Screen Negative HIV P24 Antigen Negative 05/19/17 05/19/17 06:00 06:00 WBC RBC Hgb Hct MCV MCH MCHC RDW Plt Count MPV Sodium 142 Potassium 4.2 Chloride 106 Carbon Dioxide 25 Anion Gap 11 BUN 20 H Creatinine 0.8 Creat Clearance w eGFR > 60 Random Glucose 97 Calcium 8.7 Total Bilirubin 0.5 AST 80 H ALT 70 Alkaline Phosphatase 138 H Total Protein 7.6 Albumin 3.1 L Urine Color Urine Appearance Urine pH Ur Specific [place] Urine Protein Urine Glucose (UA) Urine Ketones Urine Blood Urine Nitrite Urine Bilirubin Urine Urobilinogen Ur Leukocyte Esterase RPR Titer Nonreactive HIV 1&2 Antibody Screen HIV P24 Antigen 05/20/17 13:47 pt a0x3 in nad ambulates with walker Assessment: 05/20/17 13:48 withdrawal sx's Plan: cont. detox increase fluids
[2017-05-20] MEDS: SERTRALINE HCL 50 MG TABLET (FP) PO SCH (22:24)
[2017-05-20] MEDS: THIAMINE HCL 100 MG TABLET (FP) PO SCH (22:24)
[2017-05-20] MEDS: LORATADINE 10 MG TABLET PO SCH (22:25)
[2017-05-20] MEDS: MINERAL OIL/PETROLAT/WATER TOPICAL CREAM 113 GM JAR TP SCH ×2 (22:25→22:26)
[2017-05-20] MEDS: FLUOCINONIDE 0.05% CREAM (60 GM TUBE) TP SCH (22:27)
[2017-05-20] MEDS: chlordiazePOXIDE 5 MG CAPSULE PO SCH (23:11)
[2017-05-21] MEDS: chlordiazePOXIDE HCL 25 MG CAPSULE PO PRN (01:51)
[2017-05-21] MEDS: METHADONE HCL 10 MG TABLET PO SCH (05:44)
[2017-05-21] MEDS: chlordiazePOXIDE 5 MG CAPSULE PO SCH ×3 (05:44→17:33)
[2017-05-21] MEDS: PRENATAL VITAMINS W/ FOLIC ACID TABLET (FP) PO SCH (10:15)
[2017-05-21] MEDS: amLODIPine BESYLATE 5 MG TABLET (FP) PO SCH (11:00)
[2017-05-21] MEDS: BACITRACIN 0.9 GM PACKET TP SCH ×2 (11:15→22:39)
[2017-05-21] MEDS: NICOTINE 21 MG/24 HOURS TOPICAL PATCH TD SCH (11:25)
[2017-05-21] MEDS: FLUOCINONIDE 0.05% CREAM (60 GM TUBE) TP SCH ×4 (11:25→22:40)
[2017-05-21] MEDS: LOSARTAN POTASSIUM 50 MG TABLET (FP) PO SCH (11:29)
--- NOTE | 2017-05-21 16:30 | PN ---
[facility] Progress Note (SOAP) Subjective: shakes sweats Objective: 05/21/17 16:29 Sleepy breathing unlabored Vital Signs Temperature 97.9 F 05/21/17 14:31 Pulse Rate 69 05/21/17 14:31 Respiratory Rate 20 05/21/17 14:31 Blood Pressure 128/66 05/21/17 14:31 O2 Sat by Pulse Oximetry (%) Assessment: 05/21/17 16:30 withdrawal sx Plan: continue detox
[2017-05-21] MEDS: LORATADINE 10 MG TABLET PO SCH (22:39)
[2017-05-21] MEDS: SERTRALINE HCL 50 MG TABLET (FP) PO SCH (22:39)
[2017-05-21] MEDS: chlordiazePOXIDE HCL 10 MG CAPSULE PO SCH (22:39)
[2017-05-21] MEDS: THIAMINE HCL 100 MG TABLET (FP) PO SCH (22:39)
[2017-05-21] MEDS: MINERAL OIL/PETROLAT/WATER TOPICAL CREAM 113 GM JAR TP SCH (22:41)
[2017-05-22] MEDS: chlordiazePOXIDE HCL 10 MG CAPSULE PO SCH (06:40)
[2017-05-22] MEDS: METHADONE HCL 10 MG TABLET PO SCH (07:39)
--- NOTE | 2017-05-22 10:48 | PN ---
[facility] Progress Note (SOAP) Subjective: sleepy easy to aroused, ambulating with walker, hold librium nurse informed that the patient is sleepy fall precaution protocol Objective: 05/22/17 10:54 Vital Signs Temperature 97.9 F 05/22/17 10:00 Pulse Rate 68 05/22/17 10:00 Respiratory Rate 20 05/22/17 10:00 Blood Pressure 156/76 05/22/17 10:00 O2 Sat by Pulse Oximetry (%) Laboratory Last Values WBC 7.1 K/mm3 (4.0-10.0) 05/19/17 06:00 RBC 3.80 M/mm3 (3.60-5.2) 05/19/17 06:00 Hgb 12.9 GM/dL (10.7-15.3) 05/19/17 06:00 Hct 37.9 % (32.4-45.2) 05/19/17 06:00 MCV 99.9 fl (80-96) H 05/19/17 06:00 MCH 34.0 pg (25.7-33.7) H 05/19/17 06:00 MCHC 34.1 g/dl (32.0-36.0) 05/19/17 06:00 RDW 14.1 % (11.6-15.6) 05/19/17 06:00 Plt Count 287 K/MM3 (134-434) 05/19/17 06:00 MPV 9.6 fl (7.5-11.1) 05/19/17 06:00 Sodium 142 mmol/L (136-145) 05/19/17 06:00 Potassium 4.2 mmol/L (3.5-5.1) 05/19/17 06:00 Chloride 106 mmol/L (98-107) 05/19/17 06:00 Carbon Dioxide 25 mmol/L (21-32) 05/19/17 06:00 Anion Gap 11 (8-16) 05/19/17 06:00 BUN 20 mg/dL (7-18) H 05/19/17 06:00 Creatinine 0.8 mg/dL (0.55-1.02) 05/19/17 06:00 Creat Clearance w eGFR > 60 (>60) 05/19/17 06:00 Random Glucose 97 mg/dL (74-106) 05/19/17 06:00 Calcium 8.7 mg/dL (8.5-10.1) 05/19/17 06:00 Total Bilirubin 0.5 mg/dL (0.2-1.0) 05/19/17 06:00 AST 80 U/L (15-37) H 05/19/17 06:00 ALT 70 U/L (12-78) 05/19/17 06:00 Alkaline Phosphatase 138 U/L (45-117) H 05/19/17 06:00 Total Protein 7.6 g/dl (6.4-8.2) 05/19/17 06:00 Albumin 3.1 g/dl (3.4-5.0) L 05/19/17 06:00 Urine Color Yellow 05/18/17 19:45 Urine Appearance Clear 05/18/17 19:45 Urine pH 6.0 (5.0-8.0) 05/18/17 19:45 Ur Specific [place] 1.019 (1.001-1.035) 05/18/17 19:45 Urine Protein Negative (NEGATIVE) 05/18/17 19:45 Urine Glucose (UA) Negative (NEGATIVE) 05/18/17 19:45 Urine Ketones Negative (NEGATIVE) 05/18/17 19:45 Urine Blood Negative (NEGATIVE) 05/18/17 19:45 Urine Nitrite Negative (NEGATIVE) 05/18/17 19:45 Urine Bilirubin Negative (NEGATIVE) 05/18/17 19:45 Urine Urobilinogen Negative mg/dL (0.2-1.0) 05/18/17 19:45 Ur Leukocyte Esterase Negative (NEGATIVE) 05/18/17 19:45 RPR Titer Nonreactive (NONREACTIVE) 05/19/17 06:00 HIV 1&2 Antibody Screen Negative 05/18/17 13:30 HIV P24 Antigen Negative 05/18/17 13:30 lab noted Assessment: 05/22/17 10:54 patient denies recent head injury Plan: medically supervised detox fall precaution ambulating with walker
[2017-05-22] MEDS: LOSARTAN POTASSIUM 50 MG TABLET (FP) PO SCH (11:44)
[2017-05-22] MEDS: FLUOCINONIDE 0.05% CREAM (60 GM TUBE) TP SCH ×4 (11:44→23:10)
[2017-05-22] MEDS: amLODIPine BESYLATE 5 MG TABLET (FP) PO SCH (11:45)
[2017-05-22] MEDS: PRENATAL VITAMINS W/ FOLIC ACID TABLET (FP) PO SCH (11:45)
[2017-05-22] MEDS: NICOTINE 21 MG/24 HOURS TOPICAL PATCH TD SCH (11:45)
[2017-05-22] MEDS: BACITRACIN 0.9 GM PACKET TP SCH ×2 (11:45→23:11)
[2017-05-22] MEDS: SERTRALINE HCL 50 MG TABLET (FP) PO SCH (23:08)
[2017-05-22] MEDS: THIAMINE HCL 100 MG TABLET (FP) PO SCH (23:08)
[2017-05-22] MEDS: LORATADINE 10 MG TABLET PO SCH (23:11)
[2017-05-22] MEDS: MINERAL OIL/PETROLAT/WATER TOPICAL CREAM 113 GM JAR TP SCH (23:11)
--- NOTE | 2017-05-23 02:46 | PN ---
[facility] Progress Note Note: ASKED TO SEE PT FOR A FALL. CLIENT REPORTS LOSING HER BALANCE WHILE IN THE BATHROOM. DID NOT HAVE HER WALKER WITH HER.SHE STATES SHE FELL ON HER BUTTOCKS. DENIES LOC, DIZZINESS, C.P., SOB, PAIN SEEN EXAMINED AT BEDSIDE AWAKE, ALERT X3 NAD NCAT, PERRLA SKIN INTACT NO VISIBLE INJURY MOVING ALL EXTREMITIES W/O LIMITATIONS OR PAIN VSS S/P UNWITNESSED FALL P- INITIATE FALL PROTOCOL #[address] AT THIS TIME. RISK IN NOT HAVING THIS DONE DISCUSSED WITH CLIENT TO INCLUDE BLEEDING IN THE BRAIN. CLIENT VERBALIZED UNDERSTANDING. STATES SHE DID NOT HIT HER HEAD OR HURT HERSELF. MONITOR CLOSELY
[2017-05-23] MEDS: METHADONE HCL 10 MG TABLET PO SCH (06:40)
[2017-05-23 09:17] VITALS: TEMP 97.9
--- NOTE | 2017-05-23 09:29 | PN ---
S Progress Note (SOAP) Subjective: patient is alert oriented x 3, ambulate from room to nursing station without walker, emphasis the important of using walker as fast food sales assistant aid, patient speech clearly coherent tolerate breakfast well no acute distress Objective: 05/23/17 09:29 Vital Signs Temperature 97.9 F 05/23/17 08:40 Pulse Rate 69 05/23/17 08:40 Respiratory Rate 20 05/23/17 08:40 Blood Pressure 145/74 05/23/17 08:40 O2 Sat by Pulse Oximetry (%) Laboratory Last Values WBC 7.1 K/mm3 (4.0-10.0) 05/19/17 06:00 RBC 3.80 M/mm3 (3.60-5.2) 05/19/17 06:00 Hgb 12.9 GM/dL (10.7-15.3) 05/19/17 06:00 Hct 37.9 % (32.4-45.2) 05/19/17 06:00 MCV 99.9 fl (80-96) H 05/19/17 06:00 MCH 34.0 pg (25.7-33.7) H 05/19/17 06:00 MCHC 34.1 g/dl (32.0-36.0) 05/19/17 06:00 RDW 14.1 % (11.6-15.6) 05/19/17 06:00 Plt Count 287 K/MM3 (134-434) 05/19/17 06:00 MPV 9.6 fl (7.5-11.1) 05/19/17 06:00 Sodium 142 mmol/L (136-145) 05/19/17 06:00 Potassium 4.2 mmol/L (3.5-5.1) 05/19/17 06:00 Chloride 106 mmol/L (98-107) 05/19/17 06:00 Carbon Dioxide 25 mmol/L (21-32) 05/19/17 06:00 Anion Gap 11 (8-16) 05/19/17 06:00 BUN 20 mg/dL (7-18) H 05/19/17 06:00 Creatinine 0.8 mg/dL (0.55-1.02) 05/19/17 06:00 Creat Clearance w eGFR > 60 (>60) 05/19/17 06:00 Random Glucose 97 mg/dL (74-106) 05/19/17 06:00 Calcium 8.7 mg/dL (8.5-10.1) 05/19/17 06:00 Total Bilirubin 0.5 mg/dL (0.2-1.0) 05/19/17 06:00 AST 80 U/L (15-37) H 05/19/17 06:00 ALT 70 U/L (12-78) 05/19/17 06:00 Alkaline Phosphatase 138 U/L (45-117) H 05/19/17 06:00 Total Protein 7.6 g/dl (6.4-8.2) 05/19/17 06:00 Albumin 3.1 g/dl (3.4-5.0) L 05/19/17 06:00 Urine Color Yellow 05/18/17 19:45 Urine Appearance Clear 05/18/17 19:45 Urine pH 6.0 (5.0-8.0) 05/18/17 19:45 Ur Specific [place] 1.019 (1.001-1.035) 05/18/17 19:45 Urine Protein Negative (NEGATIVE) 05/18/17 19:45 Urine Glucose (UA) Negative (NEGATIVE) 05/18/17 19:45 Urine Ketones Negative (NEGATIVE) 05/18/17 19:45 Urine Blood Negative (NEGATIVE) 05/18/17 19:45 Urine Nitrite Negative (NEGATIVE) 05/18/17 19:45 Urine Bilirubin Negative (NEGATIVE) 05/18/17 19:45 Urine Urobilinogen Negative mg/dL (0.2-1.0) 05/18/17 19:45 Ur Leukocyte Esterase Negative (NEGATIVE) 05/18/17 19:45 RPR Titer Nonreactive (NONREACTIVE) 05/19/17 06:00 HIV 1&2 Antibody Screen Negative 05/18/17 13:30 HIV P24 Antigen Negative 05/18/17 13:30 lab noted Assessment: 05/23/17 09:29 completed alcohol detox safely return to methadone program Plan: discharged to [facility] as per counselor arranged patient wants to detox off from methadone and willing to cooperate with the program for eugene
--- NOTE | 2017-05-23 09:38 | DS ---
[facility] Detox Discharge Summary Admission Date: 05/18/17 Discharge Date: 05/23/17 - History Present History: Alcohol Dependence - Physical Exam Results Vital Signs: Vital Signs Temperature 97.9 F 05/23/17 08:40 Pulse Rate 69 05/23/17 08:40 Respiratory Rate 20 05/23/17 08:40 Blood Pressure 145/74 05/23/17 08:40 O2 Sat by Pulse Oximetry (%) Pertinent Admission Physical Exam Findings: withdrawal sx Vital Signs Temperature 97.9 F 05/23/17 08:40 Pulse Rate 69 05/23/17 08:40 Respiratory Rate 20 05/23/17 08:40 Blood Pressure 145/74 05/23/17 08:40 O2 Sat by Pulse Oximetry (%) Laboratory Last Values WBC 7.1 K/mm3 (4.0-10.0) 05/19/17 06:00 RBC 3.80 M/mm3 (3.60-5.2) 05/19/17 06:00 Hgb 12.9 GM/dL (10.7-15.3) 05/19/17 06:00 Hct 37.9 % (32.4-45.2) 05/19/17 06:00 MCV 99.9 fl (80-96) H 05/19/17 06:00 MCH 34.0 pg (25.7-33.7) H 05/19/17 06:00 MCHC 34.1 g/dl (32.0-36.0) 05/19/17 06:00 RDW 14.1 % (11.6-15.6) 05/19/17 06:00 Plt Count 287 K/MM3 (134-434) 05/19/17 06:00 MPV 9.6 fl (7.5-11.1) 05/19/17 06:00 Sodium 142 mmol/L (136-145) 05/19/17 06:00 Potassium 4.2 mmol/L (3.5-5.1) 05/19/17 06:00 Chloride 106 mmol/L (98-107) 05/19/17 06:00 Carbon Dioxide 25 mmol/L (21-32) 05/19/17 06:00 Anion Gap 11 (8-16) 05/19/17 06:00 BUN 20 mg/dL (7-18) H 05/19/17 06:00 Creatinine 0.8 mg/dL (0.55-1.02) 05/19/17 06:00 Creat Clearance w eGFR > 60 (>60) 05/19/17 06:00 Random Glucose 97 mg/dL (74-106) 05/19/17 06:00 Calcium 8.7 mg/dL (8.5-10.1) 05/19/17 06:00 Total Bilirubin 0.5 mg/dL (0.2-1.0) 05/19/17 06:00 AST 80 U/L (15-37) H 05/19/17 06:00 ALT 70 U/L (12-78) 05/19/17 06:00 Alkaline Phosphatase 138 U/L (45-117) H 05/19/17 06:00 Total Protein 7.6 g/dl (6.4-8.2) 05/19/17 06:00 Albumin 3.1 g/dl (3.4-5.0) L 05/19/17 06:00 Urine Color Yellow 05/18/17 19:45 Urine Appearance Clear 05/18/17 19:45 Urine pH 6.0 (5.0-8.0) 05/18/17 19:45 Ur Specific [place] 1.019 (1.001-1.035) 05/18/17 19:45 Urine Protein Negative (NEGATIVE) 05/18/17 19:45 Urine Glucose (UA) Negative (NEGATIVE) 05/18/17 19:45 Urine Ketones Negative (NEGATIVE) 05/18/17 19:45 Urine Blood Negative (NEGATIVE) 05/18/17 19:45 Urine Nitrite Negative (NEGATIVE) 05/18/17 19:45 Urine Bilirubin Negative (NEGATIVE) 05/18/17 19:45 Urine Urobilinogen Negative mg/dL (0.2-1.0) 05/18/17 19:45 Ur Leukocyte Esterase Negative (NEGATIVE) 05/18/17 19:45 RPR Titer Nonreactive (NONREACTIVE) 05/19/17 06:00 HIV 1&2 Antibody Screen Negative 05/18/17 13:30 HIV P24 Antigen Negative 05/18/17 13:30 lab noted - Treatment Hospital Course: Detox Protocol Followed, Detoxed Safely, Responded well, Discharged Condition Good, Rehab Referral Accepted Patient has Accepted a Re[facility] Referral to: [facility] - Medication Discharge Medications: Ambulatory Orders Mupirocin Cream [Bactroban 2% Cream -] 1 applic TP TID 05/18/17 Trazodone HCl 150 mg PO HS 05/18/17 Cetirizine HCl [Zyrtec -] 10 mg PO HS 05/19/17 Sertraline HCl [Zoloft -] 50 mg PO HS #30 tablet 05/19/17 Albuterol Sulfate Inhaler - [Ventolin HFA Inhaler -] 2 inh PO QID PRN #1 inhaler 05/22/17 Amlodipine Besylate [Norvasc -] 5 mg PO DAILY #30 tablet 05/22/17 Fluocinonide 0.05% Cream [Lidex 0.05% Cream -] 1 applic TP QID #1 tube 05/22/17 Losartan Potassium [Cozaar -] 25 mg PO DAILY #30 tablet 05/22/17 Methadone HCl 30 mg PO DAILY 05/23/17 - Diagnosis (1) Alcohol dependence with uncomplicated withdrawal Current Visit: Yes Status: Acute (2) Asthma Current Visit: Yes Status: Chronic Qualifiers: Asthma severity: mild Asthma persistence: intermittent Asthma complication type: uncomplicated Qualified Code(s): J45.20 - Mild intermittent asthma, uncomplicated (3) Hypertension Current Visit: Yes Status: Chronic Qualifiers: Hypertension type: essential hypertension Qualified Code(s): I10 - Essential (primary) hypertension (4) Nicotine dependence Current Visit: Yes Status: Acute Qualifiers: Nicotine product type: cigarettes Substance use status: in withdrawal Qualified Code(s): F17.213 - Nicotine dependence, cigarettes, with withdrawal - AMA Did Patient Leave Against Medical Advice: No
[2017-05-23] MEDS ORDERED: METHADONE HCL 5 MG TABLET PO SCH (10:00)
[2017-05-23] MEDS: amLODIPine BESYLATE 5 MG TABLET (FP) PO SCH (10:36)
[2017-05-23] MEDS: BACITRACIN 0.9 GM PACKET TP SCH (10:36)
[2017-05-23] MEDS: PRENATAL VITAMINS W/ FOLIC ACID TABLET (FP) PO SCH (10:36)
[2017-05-23] MEDS: LOSARTAN POTASSIUM 50 MG TABLET (FP) PO SCH (10:36)
[2017-05-23] MEDS: NICOTINE 21 MG/24 HOURS TOPICAL PATCH TD SCH (10:36)
[2017-05-23] MEDS: FLUOCINONIDE 0.05% CREAM (60 GM TUBE) TP SCH (10:37)
[2017-05-23 12:02] VITALS: BP 146/76; PULSE 65
== END 2017-05-23 12:47 | disposition home or self-care (01) | DRG 897 ==
LOC: YASAS 10:02 → Y6N 13:00
PROVIDERS: ADMIT Internal Medicine; ATTEND Internal Medicine
PROC: HZ2ZZZZ Detoxification Services for Substance Abuse Treatment (ICD-10-PCS; principal; 2017-05-18)
DX: F10.230 Alcohol dependence with withdrawal, uncomplicated (principal); F17.213 Nicotine dependence, cigarettes, with withdrawal; F19.24 Other psychoactive substance dependence with psychoactive substance-induced mood disorder; F31.9 Bipolar disorder, unspecified; I10 Essential (primary) hypertension; J45.20 Mild intermittent asthma, uncomplicated; G47.00 Insomnia, unspecified; L97.519 Non-pressure chronic ulcer of other part of right foot with unspecified severity; M13.862 Other specified arthritis, left knee; M13.861 Other specified arthritis, right knee; R26.2 Difficulty in walking, not elsewhere classified; Z99.89 Dependence on other enabling machines and devices; Z91.5 Personal history of self-harm
CPT/HCPCS: 36415; 80053; 81003; 85027; 86593; 87389; 90670; 90688; 93005; 93010; 94640; G0008; G0009

== ENCOUNTER 2019-02-15 11:19 | Inpatient (IN) | payer OTHER ==
[2019-02-15 11:54] VITALS: BMI 27.4
--- NOTE | 2019-02-15 14:14 | HP ---
COWS - Scale Resting Pulse: 0= MS 80 or Below Sweatin= Chills/Flushing Restless Observation: 1= Difficult to Sit Still Pupil Size: 0= Normal to Room Light (pupil constricted) Bone or Joint Aches: 1= Mild Discomfort Runny Nose/ Eye Tearin= Nasal Congestion GI Upset > 30mins: 1= Stomach Cramp Tremor Observation: 2= Slight Tremor Visible Yawning Observation: 0= None Anxiety or Irritability: 1=Feels Anxious/Irritable Goose Flesh Skin: 0=Smooth Skin COWS Score: 8 CIWA Score Nausea/Vomitin-No Nausea/No Vomiting Muscle Tremors: 2 Anxiety: 2 Agitation: 3 Paroxysmal Sweats: No Perspiration Orientation: 0-Oriented Tacttile Disturbances: 1-Very Mild Itch/Numbness Auditory Disturbances: 0-None Visual Disturbances: 0-None Headache: 3-Moderate CIWA-Ar Total Score: 11 - Admission Criteria OASAS Guidelines: Admission for Medically Managed Detox: Requires at least one of the followin. CIWA greater than 12 2. Seizures within the past 24 hours 3. Delirium tremens within the past 24 hours 4. Hallucinations within the past 24 hours 5. Acute intervention needed for co occurring medical disorder 6. Acute intervention needed for co occurring psychiatric disorder 7. Severe withdrawal that cannot be handled at a lower level of care (continued vomiting, continued diarrhea, abnormal vital signs) requiring intravenous medication and/or fluids 8. Admitting History and Physical - Smoking History Smoking history: Current every day smoker Have you smoked in the past 12 months: Yes Aproximately how many cigarettes per day: 20 - Alcohol/Substance Use Hx Alcohol Use: Yes Admission [facility] Allergies/Adverse Reactions: Allergies Allergy/AdvReac Type Severity Reaction Status Date / Time zolpidem tartrate Allergy Intermediate Hives Verified 02/15/19 11:40 [From Ambien] History of Present Illness: 68 y/o F with history of alcohol, street methadone, heroin use presenting to [facility] for [facility]. Pt has been using heroin for 32 yrs ; 2-3 bags /day ;used to inject up until 1982 and only inhale it now, last use 2 days ago. NO hx of overdose. Prior history of detox/rehab last was 7 months ago in a different facility. She also use 150$ worth of street methadone a couple of times a week. Last use was yesterday. Pt was in MMTP in [facility] in [place] until nov 2018 ( was on 30mg). Pt also drinks 3-4 pints of vodka/day; last drink was yesterday and pt admits to blacking out and waking up in her neighbor's bathtub. Prior history of blackout resulting in arm fracture in nov 2018; was given a sling wore it for a short period of time. No withdrawal seizures. 1PPD since 14 yrs of age. Longest sobriety period was [address] [facility] til 2005 remained sober until 2013. Pt admits to orthopnea, mild ECHAVARRIA, currently sleeping on recliner PMH: asthma, hepatitis C since 2002 untreated, eczema, psoriasis, prior exposure to TB in the ( receive INH for 1 yr) PSYCH HX : none PSH: C section, ovarian cyst removal, ectopic removal, liver biopsy Social Hx: lives in studio, retired on SSI PE VS 98.9F, 168/81 mmHg, 78bpm, 18, O2 sat 94% Utox: MTD, Fen CIWA 11 COWS 8 General: mildly anxious, SOB HEENT: pupils constricted, PERRLA, moist membranes LUNG: vbs b/l slightly reduced in the lower field HEART: RRR, crescendo decrescendo murmur in the aortic region no RG Abdomen: crampy +BS, mildly tender in RUQ, non distended. csection scar extremities: 2+ pulses, 1+ edema b/l.decreased AROM Left shoulder neuro:grossly intact Plan: AUD- valium detox protocol OUD- holding off methadone as pt recently used and not currently in withdrawal HTN: resuming home meds holding tomorrow. one time dose of home losartan 25 mg Heart Failure: will resume thiazide tomorrow with losartan and aspirin Asthma: continue inhaler - Ebola screening Have you traveled outside of the country in the last 21 days: No Have you had contact with anyone from an Ebola affected area: No Do you have a fever: No Patient History - Patient Medical History Hx Anemia: No Hx Asthma: Yes (Pt is on MDI for asthma.) Hx Chronic Obstructive Pulmonary Disease (COPD): No Hx Cancer: No Hx Cardiac Disorders: No Hx Congestive Heart Failure: No Hx Hypertension: Yes (on meds.) Hx Hypercholesterolemia: No Hx Pacemaker: No HX Cerebrovascular Accident: No Hx Seizures: No Hx Diabetes: No Hx Gastrointestinal Disorders: No Hx Liver Disease: No Hx Genitourinary Disorders: No Hx Sexually Transmitted Disorders: No Hx Renal Disease (ESRD): No Hx Thyroid Disease: No Hx Human Immunodeficiency Virus (HIV): No (NEGATIVE HX) Hx Hepatitis C: Yes (NO TREATMENT) Hx Depression: No Hx Suicide Attempt: Yes (Tried to cut wrist in the 20 's.) Hx Bipolar Disorder: Yes Hx Schizophrenia: No - Patient Surgical History Past Surgical History: Yes Hx Neurologic Surgery: No Hx Cataract Extraction: No Hx Cardiac Surgery: No Hx Lung Surgery: No Hx Breast Surgery: No Hx Breast Biopsy: No Hx Abdominal Surgery: No Hx Appendectomy: No Hx Cholecystectomy: No Hx Genitourinary Surgery: No Hx Section: Yes (X 1) Hx Orthopedic Surgery: No Hx Hysterectomy: Yes (TOTAL SX AT 43 YRS OLD) Other Surgical History: Ectopic Prolapse uterus Ovarian cyst sx hysterectomy Anesthesia Reaction: No (R bunionectomy 12/28) - PPD History Results: CXR 06/28 - Smoking Cessation Smoking history: Current every day smoker Have you smoked in the past 12 months: Yes Aproximately how many cigarettes per day: 20 Cigars Per Day: 0 Hx Chewing Tobacco Use: No Initiated information on smoking cessation: Yes 'Breaking Loose' booklet given: 02/15/19 - Substances abused Alcohol Substance route: Oral Frequency: Daily Amount used: 4 PINTS VODKA Age of first use: 19 Date of last use: 02/15/19 Heroin Substance route: Inhalation Frequency: Daily Amount used: 2 BAGS Age of first use: 36 Date of last use: 02/14/19 Non-Rx Methadone Substance route: Oral Frequency: Daily Amount used: 150MG OVER 4 DAYS Age of first use: 31 Date of last use: 02/14/19 Admission Physical Exam S - Vital Signs Vital Signs: Vital Signs - 24 hr 02/15/19 11:45 Temperature 98.9 F Pulse Rate 78 Respiratory 78 H Rate Blood Pressure 168/81 Cleared for Admission BHS - Detox or Rehab S Level of Care: Medically Supervised Breathalyzer - Breathalyzer Breathalyzer: 0.047 Urine Drug Screen - Test Device Lot number: [id number] Expiration date: 10/11/20 - Control Is test valid?: Yes - Results Drug screen NEGATIVE: No Urine drug screen results: FEN-Fentanyl, MTD-Methadone Inpatient Rehab Admission - Rehab Decision to Admit Inpatient rehab admission?: No
--- NOTE | 2019-02-15 14:23 | PN ---
"Teaching Attending Note Name of Resident: Maria Del Carmen Lim ATTENDING PHYSICIAN STATEMENT I saw and evaluated the patient. I reviewed the resident's note and discussed the case with the resident. I agree with the resident's findings and plan as documented. SUBJECTIVE:pt here requesting detox from etoh use , reports 3-4 pints/day , latest use this morning , + blackouts , falls while intoxicated most recently sometime in 2019 , states was given sling and she wore it for a few days then stopped using , did not f/up . MMTP until Nov 2018 MDD 30 mg , stopped going , current daily use 2-3 bags heroin via inhalation , denies IV currently , + IVDU in the past w / abscess , admits to illicit methadone use , claims she is buying 100- 150 mg methadone , latest used 2 days ago . PMH: asthma, hepatitis C since 2002 untreated PSYCH HX : none PSH: C section, ovarian cyst removal, ectopic , liver biopsy OBJECTIVE: wnwd resp : decreased BS CV RRR S1 S2 + INES 2/6 Ext : decreased AROM Left shoulder , + UE tremors, LE edema 1 + Vital Signs - 24 hr 02/15/19 11:45 Temperature 98.9 F Pulse Rate 78 Respiratory 78 H Rate Blood Pressure 168/81 Search Terms: tony lizabeth, 1950 Search Date: 02/15/2019 02:19:42 PM The Drug Utilization Report below displays all of the controlled substance prescriptions, if any, that your patient has filled in the last twelve months. The information displayed on this report is compiled from pharmacy submissions to the Department, and accurately reflects the information as submitted by the pharmacies. This report was requested by: Yoli Beck | Reference #: [id number] There are no results for the search terms that you entered. ASSESSMENT AND PLAN: AUD - Valium detox Opioid use / Illicit Methadone use - currently w/ minimal withdrawal"
[2019-02-15] MEDS ORDERED: BISMUTH SUBSALICYLATE 524 MG/30 ML UD PO PRN (16:05)
[2019-02-15] MEDS ORDERED: MENTHOL/PHENOL 1 EACH UD MM PRN (16:05)
[2019-02-15] MEDS ORDERED: hydrOXYzine PAMOATE 25 MG CAPSULE (FP) PO PRN (16:05)
[2019-02-15] MEDS ORDERED: NICOTINE POLACRILEX 2 MG GUM BUC PRN (16:05)
[2019-02-15] MEDS ORDERED: ACETAMINOPHEN 325 MG TABLET (FP) PO PRN ×2 (16:05)
[2019-02-15] MEDS ORDERED: METHOCARBAMOL 500 MG TABLET PO PRN (16:05)
[2019-02-15] MEDS ORDERED: IBUPROFEN 400 MG TABLET (FP) PO PRN (16:05)
[2019-02-15] MEDS ORDERED: MAG HYDROX/AL HYDROX/SIMETH 30 ML UNIT-DOSE CUP PO PRN (16:05)
[2019-02-15] MEDS ORDERED: MAGNESIUM CITRATE 300 ML BOTTLE PO PRN (16:05)
[2019-02-15] MEDS ORDERED: diazePAM 5 MG TABLET PO PRN (16:09)
[2019-02-15] MEDS ORDERED: LOSARTAN POTASSIUM 25 MG TABLET PO ONE (16:11)
[2019-02-15] MEDS ORDERED: FLU VACCINE QUAD 60 MCG/0.5 ML (MDV 19-20) IM ONE (16:30)
[2019-02-15] MEDS: ASPIRIN 81 MG CHEWABLE TABLETS PO SCH (17:26)
[2019-02-15] MEDS: ALBUTEROL SO4 HFA INHALER IH PRN (19:03)
[2019-02-15] MEDS ORDERED: cloNIDine HCL 0.1 MG TABLET PO ONE (20:28)
--- NOTE | 2019-02-15 20:29 | PN ---
S Progress Note Note: Vital Signs Temperature 96.7 F L 02/15/19 20:25 Pulse Rate 80 02/15/19 20:25 Respiratory Rate 16 02/15/19 20:25 Blood Pressure 179/82 H 02/15/19 20:25 O2 Sat by Pulse Oximetry (%) Patient with asymptomatic elevated BP currently on opioid and alcohol detox one time dose of clonodine 0.1 mg increase fluids repeat vital signs continue to monitor
[2019-02-15] MEDS: diazePAM 5 MG TABLET PO SCH (22:09)
[2019-02-15] MEDS: THIAMINE HCL 100 MG TABLET (FP) PO SCH (22:10)
[2019-02-15] MEDS: MELATONIN 5 MG TABLETS PO PRN (22:10)
[2019-02-16] MEDS: diazePAM 5 MG TABLET PO SCH ×3 (05:49→22:09)
[2019-02-16] MEDS ORDERED: METHADONE HCL 10 MG TABLET (FOR DETOX USE ONLY) PO ONE (09:08)
[2019-02-16] MEDS ORDERED: cloNIDine HCL 0.1 MG TABLET PO PRN (09:08)
--- NOTE | 2019-02-16 09:14 | PN ---
[facility] CIWA - CIWA Score Nausea/Vomitin Muscle Tremors: 3 Anxiety: 3 Agitation: 1-Slight > Activity Paroxysmal Sweats: 2 Orientation: 0-Oriented Tacttile Disturbances: 1-Very Mild Itch/Numbness Auditory Disturbances: 0-None Visual Disturbances: 1-Very Mild Sensitivity Headache: 0-None Present CIWA-Ar Total Score: 14 S COWS - Scale Resting Pulse: 0= [place] 80 or Below Sweatin= Chills/Flushing Restless Observation: 1= Difficult to Sit Still Pupil Size: 0= Normal to Room Light Bone or Joint Aches: 2= Severe Diffuse Aches Runny Nose/ Eye Tearin= Runny Nose/Eyes GI Upset > 30mins: 1= Stomach Cramp Tremor Observation of Outstretched Hands: 0= None Yawning Observation: 1= 1-2x During Session Anxiety or Irritability: 2=Irritable/Anxious Goose Flesh Skin: 0=Smooth Skin COWS Score: 10 [facility] Progress Note (SOAP) Subjective: c/o diarrehaa, anxious, interrupted sleep, body aches chills Objective: 02/16/19 17:01 Vital Signs Temperature 97.6 F 02/16/19 14:17 Pulse Rate 60 02/16/19 14:17 Respiratory Rate 18 02/16/19 14:17 Blood Pressure 154/66 02/16/19 14:17 O2 Sat by Pulse Oximetry (%) Laboratory Last Values WBC 4.1 K/mm3 (4.0-10.0) 02/16/19 07:45 RBC 3.40 M/mm3 (3.60-5.2) L 02/16/19 07:45 Hgb 11.4 GM/dL (10.7-15.3) 02/16/19 07:45 Hct 34.1 % (32.4-45.2) 02/16/19 07:45 MCV 100.1 fl (80-96) H 02/16/19 07:45 MCH 33.6 pg (25.7-33.7) 02/16/19 07:45 MCHC 33.6 g/dl (32.0-36.0) 02/16/19 07:45 RDW 13.5 % (11.6-15.6) 02/16/19 07:45 Plt Count 262 K/MM3 (134-434) 02/16/19 07:45 MPV 8.9 fl (7.5-11.1) 02/16/19 07:45 Sodium 141 mmol/L (136-145) 02/16/19 07:45 Potassium 3.3 mmol/L (3.5-5.1) L 02/16/19 07:45 Chloride 107 mmol/L (98-107) 02/16/19 07:45 Carbon Dioxide 27 mmol/L (21-32) 02/16/19 07:45 Anion Gap 7 MMOL/L (8-16) L 02/16/19 07:45 BUN 12.5 mg/dL (7-18) 02/16/19 07:45 Creatinine 0.8 mg/dL (0.55-1.3) 02/16/19 07:45 Est GFR (CKD-EPI)AfAm 88.42 02/16/19 07:45 Est GFR (CKD-EPI)NonAf 76.29 02/16/19 07:45 Random Glucose 155 mg/dL (74-106) H 02/16/19 07:45 Calcium 8.5 mg/dL (8.5-10.1) 02/16/19 07:45 Total Bilirubin 0.5 mg/dL (0.2-1) 02/16/19 07:45 AST 77 U/L (15-37) H 02/16/19 07:45 ALT 65 U/L (13-61) H 02/16/19 07:45 Alkaline Phosphatase 79 U/L (45-117) 02/16/19 07:45 Total Protein 6.3 g/dl (6.4-8.2) L 02/16/19 07:45 Albumin 2.9 g/dl (3.4-5.0) L 02/16/19 07:45 RPR Titer Nonreactive (NONREACTIVE) 02/16/19 07:45 Assessment: 02/16/19 09:10 Aox3 no acute distress EENT WNL Full ROM ambulating in the unit with rollator Plan: repeat CMP, elevated liver enzymes K 3.3 elevated BP improved secondary to withdrawal increase PO fluids eucerin cream for eczema Patient + for FEN and MTD on admission, no opioid detox protocol ordered, patient c/o of OWS, methadone detox protocol ordered MAT reviewed, patient to follow up with rehab post discharge continue to monitor
[2019-02-16 10:12] LABS: HEMATOCRIT 34.1 % (32.4-45.2); HEMOGLOBIN 11.4 GM/dL (10.7-15.3); MCH 33.6 pg (25.7-33.7); MCHC 33.6 g/dl (32.0-36.0); MEAN CELL VOLUME 100.1 fl (80-96); MEAN PLT VOLUME 8.9 fl (7.5-11.1); PLATELET COUNT 262 K/MM3 (134-434); RDW 13.5 % (11.6-15.6); WHITE BLOOD COUNT 4.1 K/mm3 (4.0-10.0)
[2019-02-16] MEDS: ASPIRIN 81 MG CHEWABLE TABLETS PO SCH (10:21)
[2019-02-16] MEDS: PRENATAL VITAMINS W/ FOLIC ACID TABLET (FP) PO SCH (10:21)
[2019-02-16] MEDS: MINERAL OIL/PETROLAT/WATER TOPICAL CREAM 113 GM JAR TP SCH (10:21)
[2019-02-16] MEDS: NICOTINE 21 MG/24 HOURS TOPICAL PATCH TD SCH (10:21)
[2019-02-16] MEDS: HYDROCHLOROTHIAZIDE 12.5 MG CAPSULE (FP) PO SCH (10:21)
[2019-02-16] MEDS: amLODIPine BESYLATE 10 MG TABLET (FP) PO SCH (10:21)
[2019-02-16] MEDS: LOSARTAN POTASSIUM 25 MG TABLET PO SCH (10:22)
[2019-02-16] MEDS: VITAMINS A AND D TOPICAL OINTMENT 60 GM TUBE TP SCH ×2 (10:22→22:09)
[2019-02-16 10:26] LABS: ALBUMIN 2.9 g/dl (3.4-5.0); BILIRUBIN,TOTAL 0.5 mg/dL (0.2-1); BLOOD UREA NITROGEN 12.5 mg/dL (7-18); CALCIUM 8.5 mg/dL (8.5-10.1); CREATININE 0.8 mg/dL (0.55-1.3); POTASSIUM 3.3 mmol/L (3.5-5.1); TOT PROT 6.3 g/dl (6.4-8.2)
--- NOTE | 2019-02-16 11:34 | EKG ---
Test Reason : Blood Pressure : / mmHG Vent. Rate : 075 BPM Atrial Rate : 075 BPM P-R Int : 138 ms QRS Dur : 092 ms QT Int : 362 ms P-R-T Axes : 069 024 041 degrees QTc Int : 404 ms NORMAL SINUS RHYTHM POSSIBLE LEFT ATRIAL ENLARGEMENT NONSPECIFIC T WAVE ABNORMALITY ABNORMAL ECG WHEN COMPARED WITH ECG OF 18-MAY-2017 16:33, NONSPECIFIC T WAVE ABNORMALITY NOW EVIDENT IN INFERIOR LEADS NONSPECIFIC T WAVE ABNORMALITY NOW EVIDENT IN LATERAL LEADS Confirmed by MEGHAN BOSS MD ([id number]) on 02/16/2019 11:34:14 AM Referred By: Confirmed By:MEGHAN BOSS MD
[2019-02-16] MEDS ORDERED: FLU VACCINE QUAD 60 MCG/0.5 ML (MDV 19-20) IM ONE (12:00)
[2019-02-16] MEDS: MAGNESIUM HYDROX 2400MG/30ML ORAL SUSPENSION 30 ML CUP PO PRN (12:17)
[2019-02-16] MEDS: THIAMINE HCL 100 MG TABLET (FP) PO SCH (22:09)
[2019-02-16] MEDS: ALBUTEROL SO4 HFA INHALER IH PRN (22:12)
[2019-02-17] MEDS: diazePAM 5 MG TABLET PO SCH ×2 (06:23→17:43)
[2019-02-17] MEDS: ALBUTEROL SO4 HFA INHALER IH PRN (09:32)
[2019-02-17] MEDS ORDERED: METHADONE HCL 5 MG TABLET (FOR DETOX USE ONLY) PO ONE (10:00)
[2019-02-17] MEDS: HYDROCHLOROTHIAZIDE 12.5 MG CAPSULE (FP) PO SCH (11:05)
[2019-02-17] MEDS: LOSARTAN POTASSIUM 25 MG TABLET PO SCH (11:05)
[2019-02-17] MEDS: ASPIRIN 81 MG CHEWABLE TABLETS PO SCH (11:05)
[2019-02-17] MEDS: VITAMINS A AND D TOPICAL OINTMENT 60 GM TUBE TP SCH ×2 (11:12→22:26)
[2019-02-17] MEDS: amLODIPine BESYLATE 10 MG TABLET (FP) PO SCH (11:34)
[2019-02-17] MEDS: NICOTINE 21 MG/24 HOURS TOPICAL PATCH TD SCH (11:34)
[2019-02-17] MEDS: PRENATAL VITAMINS W/ FOLIC ACID TABLET (FP) PO SCH (11:34)
[2019-02-17] MEDS: MINERAL OIL/PETROLAT/WATER TOPICAL CREAM 113 GM JAR TP SCH (11:34)
--- NOTE | 2019-02-17 13:58 | PN ---
[facility] CIWA - CIWA Score Nausea/Vomitin-No Nausea/No Vomiting Muscle Tremors: None Anxiety: 3 Agitation: 0-Normal Activity Paroxysmal Sweats: 3 Orientation: 0-Oriented Tacttile Disturbances: 0-None Auditory Disturbances: 0-None Visual Disturbances: 0-None Headache: 1-Very Mild CIWA-Ar Total Score: 7 S COWS - Scale Resting Pulse: 1= [place] 81-100 Sweatin= Chills/Flushing Restless Observation: 1= Difficult to Sit Still Pupil Size: 0= Normal to Room Light Bone or Joint Aches: 1= Mild Discomfort Runny Nose/ Eye Tearin= None GI Upset > 30mins: 0= None Tremor Observation of Outstretched Hands: 0= None Yawning Observation: 1= 1-2x During Session Anxiety or Irritability: 2=Irritable/Anxious Goose Flesh Skin: 0=Smooth Skin COWS Score: 7 [facility] Progress Note (SOAP) Subjective: c/o sweats, anxiety, muscle aches, and irritability. Objective: 02/17/19 13:57 Vital Signs 02/17/19 02/17/19 07:34 09:32 Temperature 99.3 F 95.8 F L Pulse Rate 60 60 Respiratory 18 18 Rate Blood Pressure 142/71 134/69 Laboratory Last Values WBC 4.1 K/mm3 (4.0-10.0) 02/16/19 07:45 RBC 3.40 M/mm3 (3.60-5.2) L 02/16/19 07:45 Hgb 11.4 GM/dL (10.7-15.3) 02/16/19 07:45 Hct 34.1 % (32.4-45.2) 02/16/19 07:45 MCV 100.1 fl (80-96) H 02/16/19 07:45 MCH 33.6 pg (25.7-33.7) 02/16/19 07:45 MCHC 33.6 g/dl (32.0-36.0) 02/16/19 07:45 RDW 13.5 % (11.6-15.6) 02/16/19 07:45 Plt Count 262 K/MM3 (134-434) 02/16/19 07:45 MPV 8.9 fl (7.5-11.1) 02/16/19 07:45 Sodium 141 mmol/L (136-145) 02/16/19 07:45 Potassium 3.3 mmol/L (3.5-5.1) L 02/16/19 07:45 Chloride 107 mmol/L (98-107) 02/16/19 07:45 Carbon Dioxide 27 mmol/L (21-32) 02/16/19 07:45 Anion Gap 7 MMOL/L (8-16) L 02/16/19 07:45 BUN 12.5 mg/dL (7-18) 02/16/19 07:45 Creatinine 0.8 mg/dL (0.55-1.3) 02/16/19 07:45 Est GFR (CKD-EPI)AfAm 88.42 02/16/19 07:45 Est GFR (CKD-EPI)NonAf 76.29 02/16/19 07:45 Random Glucose 155 mg/dL (74-106) H 02/16/19 07:45 Calcium 8.5 mg/dL (8.5-10.1) 02/16/19 07:45 Total Bilirubin 0.5 mg/dL (0.2-1) 02/16/19 07:45 AST 77 U/L (15-37) H 02/16/19 07:45 ALT 65 U/L (13-61) H 02/16/19 07:45 Alkaline Phosphatase 79 U/L (45-117) 02/16/19 07:45 Total Protein 6.3 g/dl (6.4-8.2) L 02/16/19 07:45 Albumin 2.9 g/dl (3.4-5.0) L 02/16/19 07:45 RPR Titer Nonreactive (NONREACTIVE) 02/16/19 07:45 Labs noted. Assessment: 02/17/19 13:58 AOX3, in no acute respiratory distress. Full ROM, ambulating in the unit. Withdrawal symptoms. Plan: continue detox.
[2019-02-17] MEDS: THIAMINE HCL 100 MG TABLET (FP) PO SCH (22:26)
[2019-02-17] MEDS: MELATONIN 5 MG TABLETS PO PRN (22:26)
[2019-02-18] MEDS ORDERED: diazePAM 5 MG TABLET PO ONE (06:00)
[2019-02-18] MEDS ORDERED: METHADONE HCL 10 MG TABLET (FOR DETOX USE ONLY) PO ONE (10:00)
[2019-02-18] MEDS: HYDROCHLOROTHIAZIDE 12.5 MG CAPSULE (FP) PO SCH (10:15)
[2019-02-18] MEDS: PRENATAL VITAMINS W/ FOLIC ACID TABLET (FP) PO SCH (10:15)
[2019-02-18] MEDS: amLODIPine BESYLATE 10 MG TABLET (FP) PO SCH (10:15)
[2019-02-18] MEDS: ASPIRIN 81 MG CHEWABLE TABLETS PO SCH (10:15)
[2019-02-18] MEDS: ALBUTEROL SO4 HFA INHALER IH PRN (10:15)
[2019-02-18] MEDS: MINERAL OIL/PETROLAT/WATER TOPICAL CREAM 113 GM JAR TP SCH (10:16)
[2019-02-18] MEDS: LOSARTAN POTASSIUM 25 MG TABLET PO SCH (10:16)
[2019-02-18] MEDS: VITAMINS A AND D TOPICAL OINTMENT 60 GM TUBE TP SCH ×2 (10:17→23:11)
[2019-02-18] MEDS: NICOTINE 21 MG/24 HOURS TOPICAL PATCH TD SCH (10:17)
--- NOTE | 2019-02-18 15:48 | PN ---
S CIWA - CIWA Score Nausea/Vomitin-No Nausea/No Vomiting Muscle Tremors: 1-None Visible, but [place] Anxiety: 1-Mildly Anxious Agitation: 1-Slight > Activity Paroxysmal Sweats: 1-Minimal Palms Moist Orientation: 0-Oriented Tacttile Disturbances: 0-None Auditory Disturbances: 0-None Visual Disturbances: 0-None Headache: 0-None Present CIWA-Ar Total Score: 4 [facility] COWS - Scale Resting Pulse: 0= [place] 80 or Below Sweatin= Chills/Flushing Restless Observation: 0= Sits Still Pupil Size: 0= Normal to Room Light Bone or Joint Aches: 1= Mild Discomfort Runny Nose/ Eye Tearin= None GI Upset > 30mins: 0= None Tremor Observation of Outstretched Hands: 1= Tremor [place], Not Seen Yawning Observation: 0= None Anxiety or Irritability: 1=Feels Anxious/Irritable Goose Flesh Skin: 0=Smooth Skin COWS Score: 4 S Progress Note (SOAP) Subjective: 68 years old female admitted on 02/15/19 for alcohol and opiate withdrawal sx management treated with valium and methadone detox regimen ambulating with walker steady gait from bed to bathroom ate breakfast and lunch resting on bed comfortably feeling better discuss medication assisted treatment program bead picker narcan from pharmacy Objective: 02/18/19 15:47 Vital Signs Temperature 97.7 F 02/18/19 13:09 Pulse Rate 61 02/18/19 13:09 Respiratory Rate 18 02/18/19 13:09 Blood Pressure 149/79 02/18/19 13:09 O2 Sat by Pulse Oximetry (%) Laboratory Last Values WBC 4.1 K/mm3 (4.0-10.0) 02/16/19 07:45 RBC 3.40 M/mm3 (3.60-5.2) L 02/16/19 07:45 Hgb 11.4 GM/dL (10.7-15.3) 02/16/19 07:45 Hct 34.1 % (32.4-45.2) 02/16/19 07:45 MCV 100.1 fl (80-96) H 02/16/19 07:45 MCH 33.6 pg (25.7-33.7) 02/16/19 07:45 MCHC 33.6 g/dl (32.0-36.0) 02/16/19 07:45 RDW 13.5 % (11.6-15.6) 02/16/19 07:45 Plt Count 262 K/MM3 (134-434) 02/16/19 07:45 MPV 8.9 fl (7.5-11.1) 02/16/19 07:45 Sodium 141 mmol/L (136-145) 02/16/19 07:45 Potassium 3.3 mmol/L (3.5-5.1) L 02/16/19 07:45 Chloride 107 mmol/L (98-107) 02/16/19 07:45 Carbon Dioxide 27 mmol/L (21-32) 02/16/19 07:45 Anion Gap 7 MMOL/L (8-16) L 02/16/19 07:45 BUN 12.5 mg/dL (7-18) 02/16/19 07:45 Creatinine 0.8 mg/dL (0.55-1.3) 02/16/19 07:45 Est GFR (CKD-EPI)AfAm 88.42 02/16/19 07:45 Est GFR (CKD-EPI)NonAf 76.29 02/16/19 07:45 Random Glucose 155 mg/dL (74-106) H 02/16/19 07:45 Calcium 8.5 mg/dL (8.5-10.1) 02/16/19 07:45 Total Bilirubin 0.5 mg/dL (0.2-1) 02/16/19 07:45 AST 77 U/L (15-37) H 02/16/19 07:45 ALT 65 U/L (13-61) H 02/16/19 07:45 Alkaline Phosphatase 79 U/L (45-117) 02/16/19 07:45 Total Protein 6.3 g/dl (6.4-8.2) L 02/16/19 07:45 Albumin 2.9 g/dl (3.4-5.0) L 02/16/19 07:45 RPR Titer Nonreactive (NONREACTIVE) 02/16/19 07:45 lab noted 02/18/19 15:52 low K+ begin K+ 20 meq bid po glucose elevation encourage follow up with primary care for glucose tolerance testing Assessment: 02/18/19 15:53 alcohol opiate withdrawal sx Plan: continue valium and methadone detox regimen
[2019-02-18] MEDS ORDERED: POTASSIUM CHLORIDE ORAL LIQUID 20 MEQ/15 ML PO SCH (22:00)
[2019-02-18] MEDS: POTASSIUM CHLORIDE ORAL LIQUID 20 MEQ/15 ML PO SCH (22:28)
[2019-02-18] MEDS: THIAMINE HCL 100 MG TABLET (FP) PO SCH (22:28)
[2019-02-18] MEDS: MELATONIN 5 MG TABLETS PO PRN (22:31)
[2019-02-18] MEDS: MAGNESIUM HYDROX 2400MG/30ML ORAL SUSPENSION 30 ML CUP PO PRN (22:31)
[2019-02-19] MEDS ORDERED: METHADONE HCL 5 MG TABLET (FOR DETOX USE ONLY) PO ONE (06:00)
[2019-02-19] MEDS: LOSARTAN POTASSIUM 25 MG TABLET PO SCH (10:24)
[2019-02-19] MEDS: ASPIRIN 81 MG CHEWABLE TABLETS PO SCH (10:24)
[2019-02-19] MEDS: HYDROCHLOROTHIAZIDE 12.5 MG CAPSULE (FP) PO SCH (10:24)
[2019-02-19] MEDS: amLODIPine BESYLATE 10 MG TABLET (FP) PO SCH (10:24)
[2019-02-19] MEDS: PRENATAL VITAMINS W/ FOLIC ACID TABLET (FP) PO SCH (10:24)
[2019-02-19] MEDS: VITAMINS A AND D TOPICAL OINTMENT 60 GM TUBE TP SCH (10:25)
[2019-02-19] MEDS: NICOTINE 21 MG/24 HOURS TOPICAL PATCH TD SCH (10:25)
[2019-02-19] MEDS: MINERAL OIL/PETROLAT/WATER TOPICAL CREAM 113 GM JAR TP SCH (10:25)
[2019-02-19] MEDS: POTASSIUM CHLORIDE ORAL LIQUID 20 MEQ/15 ML PO SCH (10:40)
[2019-02-19 13:33] VITALS: BP 124/75; PULSE 76; TEMP 98.8
--- NOTE | 2019-02-19 14:21 | DS ---
[facility] Detox Discharge Summary Admission Date: 02/15/19 Discharge Date: 02/19/19 - History Present History: Alcohol Dependence, Opioid Dependence Additional Comments: 68 years old female admitted on 02/15/19 for alcohol and opiate withdrawal sx management treated wtih valium and methadone detox regimen patient tolerated well alert oriented x 3 cardiac s1s2 regular rate rhythm respiratory clear lung bilaterally on auscultation ambulating with walker steady gait skin warm and dry - Physical Exam Results Vital Signs: Vital Signs Temperature 98.8 F 02/19/19 13:32 Pulse Rate 76 02/19/19 13:32 Respiratory Rate 18 02/19/19 13:32 Blood Pressure 124/75 02/19/19 13:32 O2 Sat by Pulse Oximetry (%) Pertinent Admission Physical Exam Findings: alcohol and opiate withdrawal sx Laboratory Last Values WBC 4.1 K/mm3 (4.0-10.0) 02/16/19 07:45 RBC 3.40 M/mm3 (3.60-5.2) L 02/16/19 07:45 Hgb 11.4 GM/dL (10.7-15.3) 02/16/19 07:45 Hct 34.1 % (32.4-45.2) 02/16/19 07:45 MCV 100.1 fl (80-96) H 02/16/19 07:45 MCH 33.6 pg (25.7-33.7) 02/16/19 07:45 MCHC 33.6 g/dl (32.0-36.0) 02/16/19 07:45 RDW 13.5 % (11.6-15.6) 02/16/19 07:45 Plt Count 262 K/MM3 (134-434) 02/16/19 07:45 MPV 8.9 fl (7.5-11.1) 02/16/19 07:45 Sodium 141 mmol/L (136-145) 02/16/19 07:45 Potassium 3.3 mmol/L (3.5-5.1) L 02/16/19 07:45 Chloride 107 mmol/L (98-107) 02/16/19 07:45 Carbon Dioxide 27 mmol/L (21-32) 02/16/19 07:45 Anion Gap 7 MMOL/L (8-16) L 02/16/19 07:45 BUN 12.5 mg/dL (7-18) 02/16/19 07:45 Creatinine 0.8 mg/dL (0.55-1.3) 02/16/19 07:45 Est GFR (CKD-EPI)AfAm 88.42 02/16/19 07:45 Est GFR (CKD-EPI)NonAf 76.29 02/16/19 07:45 Random Glucose 155 mg/dL (74-106) H 02/16/19 07:45 Calcium 8.5 mg/dL (8.5-10.1) 02/16/19 07:45 Total Bilirubin 0.5 mg/dL (0.2-1) 02/16/19 07:45 AST 77 U/L (15-37) H 02/16/19 07:45 ALT 65 U/L (13-61) H 02/16/19 07:45 Alkaline Phosphatase 79 U/L (45-117) 02/16/19 07:45 Total Protein 6.3 g/dl (6.4-8.2) L 02/16/19 07:45 Albumin 2.9 g/dl (3.4-5.0) L 02/16/19 07:45 RPR Titer Nonreactive (NONREACTIVE) 02/16/19 07:45 lab noted patient agrees to follow up with her primary care provider in the community transportation arranged by the counselor from detox facility to residential home - Treatment Hospital Course: Detox Protocol Followed, Detoxed Safely, Responded well, Discharged Condition Good, Rehab Referral Accepted Patient has Accepted a Rehab Referral to: community support approach - Medication Discharge Medications: Ambulatory Orders Albuterol Sulfate Inhaler - [Ventolin HFA Inhaler -] 2 inh PO QID PRN #1 inhaler 05/22/17 Amlodipine Besylate [Norvasc -] 10 mg PO DAILY 02/15/19 Aspirin 81 mg PO ONCE 02/15/19 Hydrochlorothiazide 12.5 mg PO DAILY 02/15/19 Losartan Potassium 25 mg PO DAILY 02/15/19 Naloxone HCl [Narcan] 4 mg NS ASDIR PRN #1 spray 02/18/19 - Diagnosis (1) Alcohol dependence with uncomplicated withdrawal Status: Acute (2) Nicotine dependence Status: Acute Qualifiers: Nicotine product type: cigarettes Substance use status: in withdrawal Qualified Code(s): F17.213 - Nicotine dependence, cigarettes, with withdrawal (3) Opioid dependence with withdrawal Status: Acute (4) Asthma Status: Chronic Qualifiers: Asthma severity: mild Asthma persistence: intermittent Asthma complication type: uncomplicated Qualified Code(s): J45.20 - Mild intermittent asthma, uncomplicated (5) Hypertension Status: Chronic Qualifiers: Hypertension type: essential hypertension Qualified Code(s): I10 - Essential (primary) hypertension (6) Uses walker Status: Chronic - AMA Did Patient Leave Against Medical Advice: No CIWA Score - CIWA Score Nausea/Vomitin-No Nausea/No Vomiting Muscle Tremors: 1-None Visible, but [place] Anxiety: 0-No Anxiety, at Ease Agitation: 0-Normal Activity Paroxysmal Sweats: 1-Minimal Palms Moist Orientation: 0-Oriented Tacttile Disturbances: 0-None Auditory Disturbances: 0-None Visual Disturbances: 0-None Headache: 0-None Present CIWA-Ar Total Score: 2 COWS (PN) - Opiate Withdrawal Resting Pulse: 0= [place] 80 or Below Sweatin= Chills/Flushing Restless Observation: 0= Sits Still Pupil Size: 0= Normal to Room Light Bone or Joint Aches: 0= None Runny Nose/ Eye Tearin= None GI Upset > 30mins: 0= None Tremor Observation of Outstretched Hands: 1= Tremor [place], Not Seen Yawning Observation: 0= None Anxiety or Irritability: 0= None Goose Flesh Skin: 0=Smooth Skin COWS Score: 2
== END 2019-02-19 15:25 | disposition home or self-care (01) | DRG 897 ==
LOC: YASAS 11:19 → Y3N 16:35
PROVIDERS: ADMIT Allergy & Immunology; ATTEND Allergy & Immunology
PROC: HZ2ZZZZ Detoxification Services for Substance Abuse Treatment (ICD-10-PCS; principal; 2019-02-15)
DX: F10.230 Alcohol dependence with withdrawal, uncomplicated (principal); F11.23 Opioid dependence with withdrawal; F17.210 Nicotine dependence, cigarettes, uncomplicated; I10 Essential (primary) hypertension; J45.20 Mild intermittent asthma, uncomplicated; E87.6 Hypokalemia; L40.9 Psoriasis, unspecified; L30.9 Dermatitis, unspecified; B18.2 Chronic viral hepatitis C; Z99.89 Dependence on other enabling machines and devices; Z88.8 Allergy status to other drugs, medicaments and biological substances
CPT/HCPCS: 36415; 71046-TC-FY; 80053; 85027; 86593; 93005; 93010; G0008; J0735; Q2036

== ENCOUNTER 2020-02-19 11:31 | Inpatient (IN) | payer OTHER ==
[2020-02-19] MEDS ORDERED: ALBUTEROL SO4 HFA INHALER IH PRN (12:47)
[2020-02-19] MEDS ORDERED: chlordiazePOXIDE HCL 25 MG CAPSULE PO PRN (12:59)
[2020-02-19] MEDS ORDERED: MENTHOL/PHENOL 1 EACH UD MM PRN (12:59)
[2020-02-19] MEDS ORDERED: BISMUTH SUBSALICYLATE 524 MG/30 ML PO PRN (12:59)
[2020-02-19] MEDS ORDERED: ACETAMINOPHEN 325 MG TABLET (FP) PO PRN ×2 (12:59)
[2020-02-19] MEDS ORDERED: MAG HYDROX/AL HYDROX/SIMETH 30 ML UNIT-DOSE CUP PO PRN (12:59)
[2020-02-19] MEDS ORDERED: cloNIDine HCL 0.1 MG TABLET PO PRN (12:59)
[2020-02-19] MEDS ORDERED: METHOCARBAMOL 500 MG TABLET PO PRN (12:59)
[2020-02-19] MEDS ORDERED: MAGNESIUM HYDROX 2400MG/30ML ORAL SUSPENSION 30 ML CUP PO PRN (12:59)
[2020-02-19] MEDS ORDERED: NICOTINE POLACRILEX 2 MG GUM BUC PRN (12:59)
[2020-02-19] MEDS ORDERED: MAGNESIUM CITRATE 300 ML BOTTLE PO PRN (12:59)
[2020-02-19 13:16] VITALS: BMI 27.8
[2020-02-19] MEDS ORDERED: chlordiazePOXIDE HCL 25 MG CAPSULE PO ONE (13:45)
[2020-02-19] MEDS ORDERED: methaDONE HCL 10 MG TABLET (FOR DETOX USE ONLY) PO ONE (13:45)
[2020-02-19] MEDS ORDERED: ASPIRIN 81 MG CHEWABLE TABLETS PO ONE (13:45)
[2020-02-19] MEDS ORDERED: LOSARTAN POTASSIUM 25 MG TABLET PO SCH (13:45)
[2020-02-19] MEDS: NICOTINE 21 MG/24 HOURS TOPICAL PATCH TD SCH (14:57)
[2020-02-19] MEDS: hydrOXYzine PAMOATE 25 MG CAPSULE (FP) PO SCH ×3 (14:57→22:39)
[2020-02-19] MEDS: amLODIPine BESYLATE 10 MG TABLET (FP) PO SCH (14:58)
[2020-02-19] MEDS: chlordiazePOXIDE HCL 25 MG CAPSULE PO SCH ×2 (17:04→22:39)
[2020-02-19] MEDS: LOSARTAN POTASSIUM 50 MG TABLET PO SCH (17:28)
[2020-02-19] MEDS: MELATONIN 5 MG TABLETS PO SCH (22:39)
[2020-02-19] MEDS: THIAMINE HCL 100 MG TABLET (FP) PO SCH (22:39)
[2020-02-20] MEDS: hydrOXYzine PAMOATE 25 MG CAPSULE (FP) PO SCH ×2 (05:40→10:43)
[2020-02-20] MEDS: chlordiazePOXIDE HCL 25 MG CAPSULE PO SCH ×4 (05:40→22:29)
[2020-02-20] MEDS ORDERED: methaDONE HCL 10 MG TABLET (FOR DETOX USE ONLY) ONE (08:43)
[2020-02-20] MEDS ORDERED: MASKS NR ONE (09:16)
[2020-02-20] MEDS: amLODIPine BESYLATE 10 MG TABLET (FP) PO SCH (10:43)
[2020-02-20] MEDS: LOSARTAN POTASSIUM 50 MG TABLET PO SCH (10:44)
[2020-02-20] MEDS: PRENATAL VITAMINS W/ FOLIC ACID TABLET (FP) PO SCH (10:44)
[2020-02-20] MEDS: NICOTINE 21 MG/24 HOURS TOPICAL PATCH TD SCH (10:47)
[2020-02-20 13:04] LABS: HEMATOCRIT 28.6 % (32.4-45.2); HEMOGLOBIN 9.3 GM/dL (10.7-15.3); MCH 33.4 pg (25.7-33.7); MCHC 32.5 g/dl (32.0-36.0); MEAN CELL VOLUME 102.9 fl (80-96); MEAN PLT VOLUME 8.7 fl (7.5-11.1); PLATELET COUNT 258 K/MM3 (134-434); RBC 2.78 M/mm3 (3.60-5.2); RDW 15.2 % (11.6-15.6); WHITE BLOOD COUNT 5.1 K/mm3 (4.0-10.0)
[2020-02-20 13:08] LABS: ALBUMIN 2.9 g/dl (3.4-5.0); BLOOD UREA NITROGEN 14.8 mg/dL (7-18); CALCIUM 8.8 mg/dL (8.5-10.1)
[2020-02-20 13:11] LABS: CREATININE 0.6 mg/dL (0.55-1.3)
[2020-02-20 13:13] LABS: BILIRUBIN,TOTAL 0.2 mg/dL (0.2-1); TOT PROT 6.2 g/dl (6.4-8.2)
[2020-02-20] MEDS: THIAMINE HCL 100 MG TABLET (FP) PO SCH (22:29)
[2020-02-20] MEDS: MELATONIN 5 MG TABLETS PO SCH (22:31)
[2020-02-21] MEDS: chlordiazePOXIDE HCL 25 MG CAPSULE PO SCH ×4 (05:40→22:06)
[2020-02-21] MEDS ORDERED: hydrOXYzine PAMOATE 25 MG CAPSULE (FP) PO PRN (09:50)
[2020-02-21] MEDS ORDERED: TRIMETHOBENZAMIDE HCL 200MG/2ML INJ IM PRN (09:56)
[2020-02-21] MEDS ORDERED: methaDONE HCL 10 MG TABLET (FOR DETOX USE ONLY) PO ONE (10:00)
[2020-02-21] MEDS: amLODIPine BESYLATE 10 MG TABLET (FP) PO SCH (10:52)
[2020-02-21] MEDS: NICOTINE 21 MG/24 HOURS TOPICAL PATCH TD SCH (10:52)
[2020-02-21] MEDS: LOSARTAN POTASSIUM 25 MG TABLET PO SCH (10:52)
[2020-02-21] MEDS: PRENATAL VITAMINS W/ FOLIC ACID TABLET (FP) PO SCH (10:53)
[2020-02-21] MEDS: MELATONIN 5 MG TABLETS PO SCH (22:06)
[2020-02-21] MEDS: THIAMINE HCL 100 MG TABLET (FP) PO SCH (22:06)
[2020-02-22] MEDS ORDERED: chlordiazePOXIDE HCL 10 MG CAPSULE PO PRN
[2020-02-22] MEDS: IBUPROFEN 400 MG TABLET (FP) PO PRN (03:58)
[2020-02-22] MEDS: chlordiazePOXIDE HCL 10 MG CAPSULE PO SCH ×4 (06:16→22:17)
[2020-02-22] MEDS ORDERED: methaDONE HCL 10 MG TABLET (FOR DETOX USE ONLY) ONE (08:32)
[2020-02-22] MEDS: ONDANSETRON *ODT* 4 MG TABLET SL PRN (10:25)
[2020-02-22] MEDS: PRENATAL VITAMINS W/ FOLIC ACID TABLET (FP) PO SCH (10:25)
[2020-02-22] MEDS: LOSARTAN POTASSIUM 25 MG TABLET PO SCH (10:25)
[2020-02-22] MEDS: amLODIPine BESYLATE 10 MG TABLET (FP) PO SCH (10:26)
[2020-02-22] MEDS: NICOTINE 21 MG/24 HOURS TOPICAL PATCH TD SCH (10:26)
[2020-02-22 11:29] LABS: HEMATOCRIT 30.5 % (32.4-45.2); HEMOGLOBIN 9.7 GM/dL (10.7-15.3); MCH 32.3 pg (25.7-33.7); MCHC 31.9 g/dl (32.0-36.0); MEAN CELL VOLUME 101.4 fl (80-96); MEAN PLT VOLUME 8.4 fl (7.5-11.1); PLATELET COUNT 295 K/MM3 (134-434); RBC 3.01 M/mm3 (3.60-5.2); RDW 15.3 % (11.6-15.6); WHITE BLOOD COUNT 5.7 K/mm3 (4.0-10.0)
[2020-02-22] MEDS: THIAMINE HCL 100 MG TABLET (FP) PO SCH (22:17)
[2020-02-22] MEDS: MELATONIN 5 MG TABLETS PO SCH (22:17)
[2020-02-23] MEDS: chlordiazePOXIDE HCL 10 MG CAPSULE PO SCH ×2 (06:27→17:48)
[2020-02-23] MEDS: ONDANSETRON *ODT* 4 MG TABLET SL PRN (09:05)
[2020-02-23] MEDS ORDERED: methaDONE HCL 10 MG TABLET (FOR DETOX USE ONLY) PO ONE (10:00)
[2020-02-23] MEDS: PRENATAL VITAMINS W/ FOLIC ACID TABLET (FP) PO SCH (10:21)
[2020-02-23] MEDS: amLODIPine BESYLATE 10 MG TABLET (FP) PO SCH (10:21)
[2020-02-23] MEDS: LOSARTAN POTASSIUM 25 MG TABLET PO SCH (10:21)
[2020-02-23] MEDS: NICOTINE 21 MG/24 HOURS TOPICAL PATCH TD SCH (10:22)
[2020-02-23] MEDS: MELATONIN 5 MG TABLETS PO SCH (22:26)
[2020-02-23] MEDS: THIAMINE HCL 100 MG TABLET (FP) PO SCH (22:26)
[2020-02-24] MEDS: IBUPROFEN 400 MG TABLET (FP) PO PRN (01:03)
[2020-02-24] MEDS ORDERED: chlordiazePOXIDE HCL 10 MG CAPSULE PO ONE (05:00)
[2020-02-24 09:32] VITALS: BP 131/74; PULSE 82; TEMP 98.1
== END 2020-02-24 10:16 | disposition home or self-care (01) | DRG 897 ==
LOC: YASAS 11:31 → Y3N 13:29
PROVIDERS: ADMIT Allergy & Immunology; ATTEND Allergy & Immunology
PROC: HZ2ZZZZ Detoxification Services for Substance Abuse Treatment (ICD-10-PCS; principal; 2020-02-19)
DX: F11.23 Opioid dependence with withdrawal (principal); F10.230 Alcohol dependence with withdrawal, uncomplicated; F17.213 Nicotine dependence, cigarettes, with withdrawal; F19.24 Other psychoactive substance dependence with psychoactive substance-induced mood disorder; I10 Essential (primary) hypertension; J45.20 Mild intermittent asthma, uncomplicated; R01.1 Cardiac murmur, unspecified; G47.00 Insomnia, unspecified; R26.2 Difficulty in walking, not elsewhere classified; Z99.89 Dependence on other enabling machines and devices; Z88.8 Allergy status to other drugs, medicaments and biological substances; Z86.19 Personal history of other infectious and parasitic diseases
CPT/HCPCS: 36415; 71046-TC-FY; 80053; 85027; 86780; 93005; 93010; C9803; Q0162; U0003

== ENCOUNTER 2020-05-22 10:58 | Inpatient (IN) | payer OTHER ==
[2020-05-22 11:48] VITALS: BMI 27.1
[2020-05-22] MEDS ORDERED: ALBUTEROL SO4 HFA INHALER IH PRN (12:21)
[2020-05-22] MEDS ORDERED: cloNIDine HCL 0.1 MG TABLET PO PRN (12:22)
[2020-05-22] MEDS ORDERED: MAGNESIUM CITRATE 300 ML BOTTLE PO PRN (12:22)
[2020-05-22] MEDS ORDERED: IBUPROFEN 400 MG TABLET (FP) PO PRN (12:22)
[2020-05-22] MEDS ORDERED: MAG HYDROX/AL HYDROX/SIMETH 30 ML UNIT-DOSE CUP PO PRN (12:22)
[2020-05-22] MEDS ORDERED: chlordiazePOXIDE HCL 25 MG CAPSULE PO PRN (12:22)
[2020-05-22] MEDS ORDERED: METHADONE HCL 10 MG TABLET (FOR DETOX USE ONLY) PO ONE (12:22)
[2020-05-22] MEDS ORDERED: MAGNESIUM HYDROX 2400MG/30ML ORAL SUSPENSION 30 ML CUP PO PRN (12:22)
[2020-05-22] MEDS ORDERED: BISMUTH SUBSALICYLATE 262 MG/15 ML BTL PO PRN (12:22)
[2020-05-22] MEDS ORDERED: NICOTINE POLACRILEX 2 MG GUM BUC PRN (12:22)
[2020-05-22] MEDS ORDERED: ONDANSETRON *ODT* 4 MG TABLET SL PRN (12:22)
[2020-05-22] MEDS ORDERED: MENTHOL/PHENOL 1 EACH UD MM PRN (12:22)
[2020-05-22] MEDS ORDERED: ACETAMINOPHEN 325 MG TABLET (FP) PO PRN (12:22)
[2020-05-22] MEDS: NICOTINE 21 MG/24 HOURS TOPICAL PATCH TD SCH (14:01)
[2020-05-22] MEDS: hydrOXYzine PAMOATE 25 MG CAPSULE (FP) PO SCH ×3 (14:13→22:48)
[2020-05-22] MEDS: PRENATAL VITAMINS W/ FOLIC ACID TABLET (FP) PO SCH (15:08)
[2020-05-22] MEDS: HYDROCHLOROTHIAZIDE 12.5 MG CAPSULE (FP) PO SCH (15:09)
[2020-05-22] MEDS: amLODIPine BESYLATE 10 MG TABLET (FP) PO SCH (15:09)
[2020-05-22] MEDS: chlordiazePOXIDE HCL 25 MG CAPSULE PO SCH ×2 (18:00→22:48)
[2020-05-22] MEDS: ATORVASTATIN CA 40 MG TABLET (FP) PO SCH (22:47)
[2020-05-22] MEDS: MELATONIN 5 MG TABLETS PO SCH (22:47)
[2020-05-22] MEDS: THIAMINE HCL 100 MG TABLET (FP) PO SCH (22:48)
[2020-05-22] MEDS: HYDROCORTISONE 0.5% TOPICAL CREAM 30 GM TUBE TP PRN (22:51)
[2020-05-23] MEDS: chlordiazePOXIDE HCL 25 MG CAPSULE PO SCH ×4 (07:53→22:10)
[2020-05-23] MEDS: hydrOXYzine PAMOATE 25 MG CAPSULE (FP) PO SCH ×5 (07:53→22:10)
[2020-05-23] MEDS ORDERED: METHADONE HCL 10 MG TABLET (FOR DETOX USE ONLY) ONE (09:08)
[2020-05-23] MEDS ORDERED: METHADONE HCL 5 MG TABLET (FOR DETOX USE ONLY) ONE (09:08)
[2020-05-23 09:50] LABS: HEMOGLOBIN 8.4 GM/dL (10.7-15.3); MCH 31.1 pg (25.7-33.7); MCHC 32.1 g/dl (32.0-36.0); MEAN CELL VOLUME 96.7 fl (80-96); MEAN PLT VOLUME 8.3 fl (7.5-11.1); PLATELET COUNT 378 K/MM3 (134-434); RBC 2.69 M/mm3 (3.60-5.2); RDW 16.8 % (11.6-15.6)
[2020-05-23 09:55] LABS: POTASSIUM 3.7 mmol/L (3.5-5.1)
[2020-05-23] MEDS ORDERED: METHADONE (DETOX) 20 MG, METHADONE (DETOX) 5 MG PO ONE (10:00)
[2020-05-23] MEDS: ASPIRIN 81 MG CHEWABLE TABLETS PO SCH (10:05)
[2020-05-23] MEDS: PRENATAL VITAMINS W/ FOLIC ACID TABLET (FP) PO SCH (10:05)
[2020-05-23] MEDS: NICOTINE 21 MG/24 HOURS TOPICAL PATCH TD SCH (10:05)
[2020-05-23] MEDS: amLODIPine BESYLATE 10 MG TABLET (FP) PO SCH (10:05)
[2020-05-23] MEDS: HYDROCHLOROTHIAZIDE 12.5 MG CAPSULE (FP) PO SCH (10:06)
[2020-05-23] MEDS: FERROUS SO4 325 MG TABLET (FP) PO SCH (10:06)
[2020-05-23] MEDS: METHOCARBAMOL 500 MG TABLET PO PRN (10:09)
[2020-05-23] MEDS: LOSARTAN POTASSIUM 25 MG TABLET PO SCH (10:10)
[2020-05-23 10:37] LABS: ALBUMIN 3.1 g/dl (3.4-5.0); BLOOD UREA NITROGEN 15.4 mg/dL (7-18); CALCIUM 8.9 mg/dL (8.5-10.1)
[2020-05-23 10:39] LABS: CREATININE 0.7 mg/dL (0.55-1.3)
[2020-05-23 10:40] LABS: TOT PROT 7.2 g/dl (6.4-8.2)
[2020-05-23 10:43] LABS: BILIRUBIN,TOTAL 0.9 mg/dL (0.2-1)
[2020-05-23] MEDS: ATORVASTATIN CA 40 MG TABLET (FP) PO SCH (22:09)
[2020-05-23] MEDS: THIAMINE HCL 100 MG TABLET (FP) PO SCH (22:10)
[2020-05-23] MEDS: MELATONIN 5 MG TABLETS PO SCH (22:10)
[2020-05-23] MEDS: HYDROCORTISONE 0.5% TOPICAL CREAM 30 GM TUBE TP PRN (22:14)
[2020-05-24] MEDS: METHOCARBAMOL 500 MG TABLET PO PRN (04:13)
[2020-05-24] MEDS: ACETAMINOPHEN 325 MG TABLET (FP) PO PRN (04:14)
[2020-05-24] MEDS: hydrOXYzine PAMOATE 25 MG CAPSULE (FP) PO SCH ×5 (06:35→22:57)
[2020-05-24] MEDS: chlordiazePOXIDE HCL 25 MG CAPSULE PO SCH ×4 (06:35→22:56)
[2020-05-24] MEDS ORDERED: METHADONE HCL 10 MG TABLET (FOR DETOX USE ONLY) PO ONE (10:00)
[2020-05-24] MEDS: PRENATAL VITAMINS W/ FOLIC ACID TABLET (FP) PO SCH (10:51)
[2020-05-24] MEDS: LOSARTAN POTASSIUM 25 MG TABLET PO SCH (10:51)
[2020-05-24] MEDS: ASPIRIN 81 MG CHEWABLE TABLETS PO SCH (10:51)
[2020-05-24] MEDS: amLODIPine BESYLATE 10 MG TABLET (FP) PO SCH (10:51)
[2020-05-24] MEDS: FERROUS SO4 325 MG TABLET (FP) PO SCH (10:51)
[2020-05-24] MEDS: NICOTINE 21 MG/24 HOURS TOPICAL PATCH TD SCH (10:52)
[2020-05-24] MEDS: HYDROCHLOROTHIAZIDE 12.5 MG CAPSULE (FP) PO SCH (10:52)
[2020-05-24] MEDS: ATORVASTATIN CA 40 MG TABLET (FP) PO SCH (22:57)
[2020-05-24] MEDS: MELATONIN 5 MG TABLETS PO SCH (22:57)
[2020-05-24] MEDS: THIAMINE HCL 100 MG TABLET (FP) PO SCH (22:57)
[2020-05-25] MEDS ORDERED: chlordiazePOXIDE HCL 10 MG CAPSULE PO PRN
[2020-05-25] MEDS: hydrOXYzine PAMOATE 25 MG CAPSULE (FP) PO SCH ×5 (07:41→22:37)
[2020-05-25] MEDS: chlordiazePOXIDE HCL 10 MG CAPSULE PO SCH ×4 (07:41→22:36)
[2020-05-25] MEDS ORDERED: METHADONE HCL 10 MG TABLET (FOR DETOX USE ONLY) ONE (09:33)
[2020-05-25] MEDS ORDERED: METHADONE HCL 5 MG TABLET (FOR DETOX USE ONLY) ONE (09:33)
[2020-05-25] MEDS ORDERED: METHADONE (DETOX) 10 MG, METHADONE (DETOX) 5 MG PO ONE (10:00)
[2020-05-25] MEDS: ASPIRIN 81 MG CHEWABLE TABLETS PO SCH (11:01)
[2020-05-25] MEDS: HYDROCHLOROTHIAZIDE 12.5 MG CAPSULE (FP) PO SCH (11:01)
[2020-05-25] MEDS: LOSARTAN POTASSIUM 25 MG TABLET PO SCH (11:01)
[2020-05-25] MEDS: amLODIPine BESYLATE 10 MG TABLET (FP) PO SCH (11:01)
[2020-05-25] MEDS: FERROUS SO4 325 MG TABLET (FP) PO SCH (11:01)
[2020-05-25] MEDS: NICOTINE 21 MG/24 HOURS TOPICAL PATCH TD SCH (11:03)
[2020-05-25] MEDS: PRENATAL VITAMINS W/ FOLIC ACID TABLET (FP) PO SCH (11:06)
[2020-05-25] MEDS: ATORVASTATIN CA 40 MG TABLET (FP) PO SCH (22:36)
[2020-05-25] MEDS: THIAMINE HCL 100 MG TABLET (FP) PO SCH (22:36)
[2020-05-25] MEDS: MELATONIN 5 MG TABLETS PO SCH (22:37)
[2020-05-26] MEDS: hydrOXYzine PAMOATE 25 MG CAPSULE (FP) PO SCH ×6 (06:30→22:35)
[2020-05-26] MEDS: chlordiazePOXIDE HCL 10 MG CAPSULE PO SCH ×3 (06:30→17:35)
[2020-05-26] MEDS: METHOCARBAMOL 500 MG TABLET PO PRN ×2 (07:21→18:39)
[2020-05-26] MEDS: ACETAMINOPHEN 325 MG TABLET (FP) PO PRN (07:22)
[2020-05-26] MEDS ORDERED: METHADONE HCL 10 MG TABLET (FOR DETOX USE ONLY) PO ONE (10:00)
[2020-05-26] MEDS: ASPIRIN 81 MG CHEWABLE TABLETS PO SCH (10:28)
[2020-05-26] MEDS: NICOTINE 21 MG/24 HOURS TOPICAL PATCH TD SCH (10:30)
[2020-05-26] MEDS: PRENATAL VITAMINS W/ FOLIC ACID TABLET (FP) PO SCH (10:30)
[2020-05-26] MEDS: HYDROCHLOROTHIAZIDE 12.5 MG CAPSULE (FP) PO SCH (10:30)
[2020-05-26] MEDS: LOSARTAN POTASSIUM 25 MG TABLET PO SCH (10:30)
[2020-05-26] MEDS: FERROUS SO4 325 MG TABLET (FP) PO SCH (10:30)
[2020-05-26] MEDS: amLODIPine BESYLATE 10 MG TABLET (FP) PO SCH (10:30)
[2020-05-26] MEDS: ATORVASTATIN CA 40 MG TABLET (FP) PO SCH (22:35)
[2020-05-26] MEDS: MELATONIN 5 MG TABLETS PO SCH (22:35)
[2020-05-26] MEDS: THIAMINE HCL 100 MG TABLET (FP) PO SCH (22:35)
[2020-05-27] MEDS ORDERED: chlordiazePOXIDE HCL 10 MG CAPSULE PO ONE (05:00)
[2020-05-27] MEDS ORDERED: METHADONE HCL 5 MG TABLET (FOR DETOX USE ONLY) PO ONE (06:00)
[2020-05-27] MEDS: hydrOXYzine PAMOATE 25 MG CAPSULE (FP) PO SCH ×2 (06:10→10:41)
[2020-05-27 06:27] VITALS: PULSE 66; TEMP 97.3
[2020-05-27 09:20] VITALS: BP 123/72
[2020-05-27] MEDS: NICOTINE 21 MG/24 HOURS TOPICAL PATCH TD SCH (10:37)
[2020-05-27] MEDS: ASPIRIN 81 MG CHEWABLE TABLETS PO SCH (10:37)
[2020-05-27] MEDS: amLODIPine BESYLATE 10 MG TABLET (FP) PO SCH (10:37)
[2020-05-27] MEDS: LOSARTAN POTASSIUM 25 MG TABLET PO SCH (10:37)
[2020-05-27] MEDS: PRENATAL VITAMINS W/ FOLIC ACID TABLET (FP) PO SCH (10:41)
[2020-05-27] MEDS: HYDROCHLOROTHIAZIDE 12.5 MG CAPSULE (FP) PO SCH (11:29)
[2020-05-27] MEDS ORDERED: FERROUS SO4 325 MG TABLET (FP) PO SCH (12:00)
== END 2020-05-27 11:54 | disposition other institution (70) | DRG 897 ==
LOC: YASAS 10:58 → Y3N 12:25
PROVIDERS: ADMIT Allergy & Immunology; ATTEND Allergy & Immunology
PROC: HZ2ZZZZ Detoxification Services for Substance Abuse Treatment (ICD-10-PCS; principal; 2020-05-22)
DX: F10.230 Alcohol dependence with withdrawal, uncomplicated (principal); F11.23 Opioid dependence with withdrawal; F17.210 Nicotine dependence, cigarettes, uncomplicated; F19.24 Other psychoactive substance dependence with psychoactive substance-induced mood disorder; F31.9 Bipolar disorder, unspecified; I10 Essential (primary) hypertension; J45.20 Mild intermittent asthma, uncomplicated; G47.00 Insomnia, unspecified; D64.9 Anemia, unspecified; Z86.11 Personal history of tuberculosis; Z99.89 Dependence on other enabling machines and devices; Z88.8 Allergy status to other drugs, medicaments and biological substances; W19.XXXA Unspecified fall, initial encounter; Y92.238 Other place in hospital as the place of occurrence of the external cause; Y93.89 Activity, other specified; Y99.8 Other external cause status
CPT/HCPCS: 36415; 80053; 85027; 86780; C9803; J0735; Q0162; U0003

== ENCOUNTER 2020-05-27 12:35 | Inpatient (IN) | payer OTHER ==
[2020-05-27] MEDS ORDERED: MENTHOL/PHENOL 1 EACH UD MM PRN (13:18)
[2020-05-27] MEDS ORDERED: MAGNESIUM HYDROX 2400MG/30ML ORAL SUSPENSION 30 ML CUP PO PRN (13:18)
[2020-05-27] MEDS ORDERED: IBUPROFEN 400 MG TABLET (FP) PO PRN (13:18)
[2020-05-27] MEDS ORDERED: MAGNESIUM CITRATE 300 ML BOTTLE PO PRN (13:18)
[2020-05-27] MEDS ORDERED: guaiFENesin 200 MG/10 ML 10 ML UNIT-DOSE CUPS PO PRN (13:18)
[2020-05-27] MEDS ORDERED: LOPERAMIDE HCL 2 MG CAPSULE PO PRN (13:18)
[2020-05-27] MEDS ORDERED: P-EPHED 60MG/TRIPROLIDI 2.5MG TABLET PO PRN (13:18)
[2020-05-27] MEDS ORDERED: MAG HYDROX/AL HYDROX/SIMETH 30 ML UNIT-DOSE CUP PO PRN (13:18)
[2020-05-27] MEDS ORDERED: NICOTINE POLACRILEX 2 MG GUM BUC PRN (13:18)
[2020-05-27] MEDS ORDERED: ALBUTEROL SO4 HFA INHALER IH PRN (13:43)
[2020-05-27] MEDS: FERROUS SO4 325 MG TABLET (FP) PO SCH (17:48)
[2020-05-27] MEDS: THIAMINE HCL 100 MG TABLET (FP) PO SCH (21:06)
[2020-05-27] MEDS: MELATONIN 5 MG TABLETS PO SCH (21:06)
[2020-05-28] MEDS: ACETAMINOPHEN 325 MG TABLET (FP) PO PRN (04:16)
[2020-05-28] MEDS: FERROUS SO4 325 MG TABLET (FP) PO SCH ×3 (07:22→17:31)
[2020-05-28] MEDS ORDERED: NICOTINE 7 MG/24 HOURS TOPICAL PATCH TD SCH (10:00)
[2020-05-28] MEDS: amLODIPine BESYLATE 10 MG TABLET (FP) PO SCH (11:10)
[2020-05-28] MEDS: ASPIRIN 81 MG CHEWABLE TABLETS PO SCH (11:10)
[2020-05-28] MEDS: PRENATAL VITAMINS W/ FOLIC ACID TABLET (FP) PO SCH (11:10)
[2020-05-28] MEDS: HYDROCHLOROTHIAZIDE 12.5 MG CAPSULE (FP) PO SCH (11:11)
[2020-05-28] MEDS: FOLIC ACID 1 MG TABLET (FP) PO SCH (11:11)
[2020-05-28] MEDS: LOSARTAN POTASSIUM 25 MG TABLET PO SCH (11:11)
[2020-05-28] MEDS: NICOTINE 14 MG/24 HOURS TOPICAL PATCH TD SCH (14:31)
[2020-05-28] MEDS: THIAMINE HCL 100 MG TABLET (FP) PO SCH (21:13)
[2020-05-28] MEDS ORDERED: PT OWN MED DRAWER 7, Y5N ONE (21:15)
[2020-05-28] MEDS: MELATONIN 5 MG TABLETS PO SCH (21:23)
[2020-05-29] MEDS: FERROUS SO4 325 MG TABLET (FP) PO SCH ×3 (07:28→19:15)
[2020-05-29] MEDS: ACETAMINOPHEN 325 MG TABLET (FP) PO PRN (07:42)
[2020-05-29] MEDS: PRENATAL VITAMINS W/ FOLIC ACID TABLET (FP) PO SCH (10:49)
[2020-05-29] MEDS: ASPIRIN 81 MG CHEWABLE TABLETS PO SCH (10:50)
[2020-05-29] MEDS: FOLIC ACID 1 MG TABLET (FP) PO SCH (10:50)
[2020-05-29] MEDS: amLODIPine BESYLATE 10 MG TABLET (FP) PO SCH (10:50)
[2020-05-29] MEDS: HYDROCHLOROTHIAZIDE 12.5 MG CAPSULE (FP) PO SCH (10:50)
[2020-05-29] MEDS: LOSARTAN POTASSIUM 25 MG TABLET PO SCH (10:50)
[2020-05-29] MEDS: NICOTINE 14 MG/24 HOURS TOPICAL PATCH TD SCH (10:51)
[2020-05-29] MEDS: THIAMINE HCL 100 MG TABLET (FP) PO SCH (21:36)
[2020-05-29] MEDS: MELATONIN 5 MG TABLETS PO SCH (21:36)
[2020-05-30] MEDS: FERROUS SO4 325 MG TABLET (FP) PO SCH ×3 (07:13→17:17)
[2020-05-30] MEDS: ACETAMINOPHEN 325 MG TABLET (FP) PO PRN (07:30)
[2020-05-30] MEDS: PRENATAL VITAMINS W/ FOLIC ACID TABLET (FP) PO SCH (10:47)
[2020-05-30] MEDS: LOSARTAN POTASSIUM 25 MG TABLET PO SCH (10:48)
[2020-05-30] MEDS: ASPIRIN 81 MG CHEWABLE TABLETS PO SCH (10:48)
[2020-05-30] MEDS: HYDROCHLOROTHIAZIDE 12.5 MG CAPSULE (FP) PO SCH (10:48)
[2020-05-30] MEDS: FOLIC ACID 1 MG TABLET (FP) PO SCH (10:48)
[2020-05-30] MEDS: amLODIPine BESYLATE 10 MG TABLET (FP) PO SCH (10:48)
[2020-05-30] MEDS: NICOTINE 14 MG/24 HOURS TOPICAL PATCH TD SCH (10:49)
[2020-05-30] MEDS: HYDROCORTISONE 0.5% TOPICAL CREAM 30 GM TUBE TP PRN (10:52)
[2020-05-30] MEDS: THIAMINE HCL 100 MG TABLET (FP) PO SCH (21:22)
[2020-05-30] MEDS: MIRTAZAPINE 15 MG TABLET (FP) PO SCH (21:22)
[2020-05-30] MEDS: MELATONIN 5 MG TABLETS PO SCH (21:22)
[2020-05-31] MEDS: ACETAMINOPHEN 325 MG TABLET (FP) PO PRN (03:40)
[2020-05-31] MEDS: FERROUS SO4 325 MG TABLET (FP) PO SCH ×3 (07:03→17:01)
[2020-05-31] MEDS: ASPIRIN 81 MG CHEWABLE TABLETS PO SCH (10:50)
[2020-05-31] MEDS: amLODIPine BESYLATE 10 MG TABLET (FP) PO SCH (10:50)
[2020-05-31] MEDS: PRENATAL VITAMINS W/ FOLIC ACID TABLET (FP) PO SCH (10:50)
[2020-05-31] MEDS: NICOTINE 14 MG/24 HOURS TOPICAL PATCH TD SCH (10:50)
[2020-05-31] MEDS: LOSARTAN POTASSIUM 25 MG TABLET PO SCH (10:51)
[2020-05-31] MEDS: HYDROCHLOROTHIAZIDE 12.5 MG CAPSULE (FP) PO SCH (10:51)
[2020-05-31] MEDS: FOLIC ACID 1 MG TABLET (FP) PO SCH (10:51)
[2020-05-31] MEDS: hydrOXYzine PAMOATE 25 MG CAPSULE (FP) PO PRN ×2 (17:01→21:23)
[2020-05-31] MEDS: THIAMINE HCL 100 MG TABLET (FP) PO SCH (21:23)
[2020-05-31] MEDS: MELATONIN 5 MG TABLETS PO SCH (21:23)
[2020-05-31] MEDS: MIRTAZAPINE 15 MG TABLET (FP) PO SCH (21:23)
[2020-06-01] MEDS: LOSARTAN POTASSIUM 25 MG TABLET PO SCH (10:19)
[2020-06-01] MEDS: FOLIC ACID 1 MG TABLET (FP) PO SCH (10:19)
[2020-06-01] MEDS: amLODIPine BESYLATE 10 MG TABLET (FP) PO SCH (10:19)
[2020-06-01] MEDS: hydrOXYzine PAMOATE 25 MG CAPSULE (FP) PO PRN ×3 (10:19→21:59)
[2020-06-01] MEDS: HYDROCORTISONE 0.5% TOPICAL CREAM 30 GM TUBE TP PRN ×2 (10:19→17:41)
[2020-06-01] MEDS: ASPIRIN 81 MG CHEWABLE TABLETS PO SCH (10:19)
[2020-06-01] MEDS: NICOTINE 14 MG/24 HOURS TOPICAL PATCH TD SCH (10:21)
[2020-06-01] MEDS: FERROUS SO4 325 MG TABLET (FP) PO SCH ×3 (10:21→17:39)
[2020-06-01] MEDS: HYDROCHLOROTHIAZIDE 12.5 MG CAPSULE (FP) PO SCH (10:21)
[2020-06-01] MEDS: PRENATAL VITAMINS W/ FOLIC ACID TABLET (FP) PO SCH (10:22)
[2020-06-01] MEDS ORDERED: ONDANSETRON *ODT* 4 MG TABLET SL PRN (10:24)
[2020-06-01] MEDS ORDERED: TRIMETHOBENZAMIDE HCL 200MG/2ML INJ IM PRN (12:20)
[2020-06-01] MEDS ORDERED: cloNIDine HCL 0.1 MG TABLET PO ONE (14:08)
[2020-06-01] MEDS ORDERED: METHOCARBAMOL 500 MG TABLET PO ONE (14:10)
[2020-06-01] MEDS: THIAMINE HCL 100 MG TABLET (FP) PO SCH (21:59)
[2020-06-01] MEDS: cloNIDine HCL 0.1 MG TABLET PO SCH (22:00)
[2020-06-01] MEDS: MELATONIN 5 MG TABLETS PO SCH (22:00)
[2020-06-01] MEDS: MIRTAZAPINE 15 MG TABLET (FP) PO SCH (22:00)
[2020-06-02] MEDS: hydrOXYzine PAMOATE 25 MG CAPSULE (FP) PO PRN ×3 (06:12→21:11)
[2020-06-02] MEDS: FERROUS SO4 325 MG TABLET (FP) PO SCH ×3 (07:47→17:40)
[2020-06-02] MEDS: cloNIDine HCL 0.1 MG TABLET PO SCH ×2 (10:55→21:09)
[2020-06-02] MEDS: amLODIPine BESYLATE 10 MG TABLET (FP) PO SCH (10:55)
[2020-06-02] MEDS: FOLIC ACID 1 MG TABLET (FP) PO SCH (10:56)
[2020-06-02] MEDS: HYDROCHLOROTHIAZIDE 12.5 MG CAPSULE (FP) PO SCH (10:56)
[2020-06-02] MEDS: LOSARTAN POTASSIUM 25 MG TABLET PO SCH (10:56)
[2020-06-02] MEDS: ASPIRIN 81 MG CHEWABLE TABLETS PO SCH (10:56)
[2020-06-02] MEDS: PRENATAL VITAMINS W/ FOLIC ACID TABLET (FP) PO SCH (10:56)
[2020-06-02] MEDS: NICOTINE 14 MG/24 HOURS TOPICAL PATCH TD SCH (10:58)
[2020-06-02] MEDS: MIRTAZAPINE 15 MG TABLET (FP) PO SCH (21:09)
[2020-06-02] MEDS: THIAMINE HCL 100 MG TABLET (FP) PO SCH (21:10)
[2020-06-02] MEDS: MELATONIN 5 MG TABLETS PO SCH (21:10)
[2020-06-03] MEDS: FERROUS SO4 325 MG TABLET (FP) PO SCH ×3 (07:37→17:25)
[2020-06-03] MEDS: PRENATAL VITAMINS W/ FOLIC ACID TABLET (FP) PO SCH (10:57)
[2020-06-03] MEDS: amLODIPine BESYLATE 10 MG TABLET (FP) PO SCH (10:58)
[2020-06-03] MEDS: ASPIRIN 81 MG CHEWABLE TABLETS PO SCH (10:58)
[2020-06-03] MEDS: cloNIDine HCL 0.1 MG TABLET PO SCH ×2 (10:58→21:58)
[2020-06-03] MEDS: FOLIC ACID 1 MG TABLET (FP) PO SCH (10:59)
[2020-06-03] MEDS: HYDROCHLOROTHIAZIDE 12.5 MG CAPSULE (FP) PO SCH (10:59)
[2020-06-03] MEDS: LOSARTAN POTASSIUM 25 MG TABLET PO SCH (10:59)
[2020-06-03] MEDS: NICOTINE 14 MG/24 HOURS TOPICAL PATCH TD SCH (11:00)
[2020-06-03] MEDS: MELATONIN 5 MG TABLETS PO SCH (21:57)
[2020-06-03] MEDS: MIRTAZAPINE 15 MG TABLET (FP) PO SCH (21:58)
[2020-06-03] MEDS: THIAMINE HCL 100 MG TABLET (FP) PO SCH (21:58)
[2020-06-04] MEDS: FERROUS SO4 325 MG TABLET (FP) PO SCH ×3 (07:15→17:16)
[2020-06-04] MEDS: PRENATAL VITAMINS W/ FOLIC ACID TABLET (FP) PO SCH (10:37)
[2020-06-04] MEDS: amLODIPine BESYLATE 10 MG TABLET (FP) PO SCH (10:38)
[2020-06-04] MEDS: ASPIRIN 81 MG CHEWABLE TABLETS PO SCH (10:38)
[2020-06-04] MEDS: cloNIDine HCL 0.1 MG TABLET PO SCH ×2 (10:38→22:06)
[2020-06-04] MEDS: HYDROCHLOROTHIAZIDE 12.5 MG CAPSULE (FP) PO SCH (10:39)
[2020-06-04] MEDS: LOSARTAN POTASSIUM 25 MG TABLET PO SCH (10:39)
[2020-06-04] MEDS: FOLIC ACID 1 MG TABLET (FP) PO SCH (10:39)
[2020-06-04] MEDS: NICOTINE 14 MG/24 HOURS TOPICAL PATCH TD SCH (10:40)
[2020-06-04 12:45] LABS: MCH 31.7 pg (25.7-33.7); MCHC 32.5 g/dl (32.0-36.0); MEAN CELL VOLUME 97.7 fl (80-96); MEAN PLT VOLUME 9.1 fl (7.5-11.1); PLATELET COUNT 414 K/MM3 (134-434); RBC 3.48 M/mm3 (3.60-5.2); RDW 17.8 % (11.6-15.6); WHITE BLOOD COUNT 4.5 K/mm3 (4.0-10.0)
[2020-06-04] MEDS: HYDROCORTISONE 0.5% TOPICAL CREAM 30 GM TUBE TP PRN ×2 (14:25→22:07)
[2020-06-04] MEDS ORDERED: BUPRENORPHINE/NALOXONE 2 MG/0.5 MG FILM PACKET SL ONE (15:41)
[2020-06-04] MEDS: MIRTAZAPINE 15 MG TABLET (FP) PO SCH (22:06)
[2020-06-04] MEDS: MELATONIN 5 MG TABLETS PO SCH (22:06)
[2020-06-04] MEDS: THIAMINE HCL 100 MG TABLET (FP) PO SCH (22:06)
[2020-06-05] MEDS: HYDROCORTISONE 0.5% TOPICAL CREAM 30 GM TUBE TP PRN (06:32)
[2020-06-05] MEDS: FERROUS SO4 325 MG TABLET (FP) PO SCH ×3 (07:27→17:16)
[2020-06-05] MEDS: amLODIPine BESYLATE 10 MG TABLET (FP) PO SCH (10:39)
[2020-06-05] MEDS: PRENATAL VITAMINS W/ FOLIC ACID TABLET (FP) PO SCH (10:39)
[2020-06-05] MEDS: ASPIRIN 81 MG CHEWABLE TABLETS PO SCH (10:39)
[2020-06-05] MEDS: BUPRENORPHINE/NALOXONE 2 MG/0.5 MG FILM PACKET SL SCH (10:40)
[2020-06-05] MEDS: FOLIC ACID 1 MG TABLET (FP) PO SCH (10:40)
[2020-06-05] MEDS: LOSARTAN POTASSIUM 25 MG TABLET PO SCH (10:40)
[2020-06-05] MEDS: NICOTINE 14 MG/24 HOURS TOPICAL PATCH TD SCH (10:40)
[2020-06-05] MEDS: HYDROCHLOROTHIAZIDE 12.5 MG CAPSULE (FP) PO SCH (10:41)
[2020-06-05] MEDS: MELATONIN 5 MG TABLETS PO SCH (21:40)
[2020-06-05] MEDS: MIRTAZAPINE 15 MG TABLET (FP) PO SCH (21:41)
[2020-06-05] MEDS: THIAMINE HCL 100 MG TABLET (FP) PO SCH (21:41)
[2020-06-06] MEDS: FERROUS SO4 325 MG TABLET (FP) PO SCH ×3 (07:01→16:52)
[2020-06-06] MEDS: PRENATAL VITAMINS W/ FOLIC ACID TABLET (FP) PO SCH (10:22)
[2020-06-06] MEDS: FOLIC ACID 1 MG TABLET (FP) PO SCH (10:23)
[2020-06-06] MEDS: BUPRENORPHINE/NALOXONE 2 MG/0.5 MG FILM PACKET SL SCH (10:23)
[2020-06-06] MEDS: LOSARTAN POTASSIUM 25 MG TABLET PO SCH (10:23)
[2020-06-06] MEDS: amLODIPine BESYLATE 10 MG TABLET (FP) PO SCH (10:23)
[2020-06-06] MEDS: ASPIRIN 81 MG CHEWABLE TABLETS PO SCH (10:23)
[2020-06-06] MEDS: HYDROCHLOROTHIAZIDE 12.5 MG CAPSULE (FP) PO SCH (10:23)
[2020-06-06] MEDS: NICOTINE 14 MG/24 HOURS TOPICAL PATCH TD SCH (10:24)
[2020-06-06] MEDS ORDERED: BUPRENORPHINE/NALOXONE 2 MG/0.5 MG FILM PACKET SL ONE (14:00)
[2020-06-06] MEDS: THIAMINE HCL 100 MG TABLET (FP) PO SCH (21:42)
[2020-06-06] MEDS: MELATONIN 5 MG TABLETS PO SCH (21:42)
[2020-06-06] MEDS: MIRTAZAPINE 15 MG TABLET (FP) PO SCH (21:43)
[2020-06-06] MEDS: HYDROCORTISONE 0.5% TOPICAL CREAM 30 GM TUBE TP PRN (21:45)
[2020-06-07] MEDS: FERROUS SO4 325 MG TABLET (FP) PO SCH ×3 (07:27→17:25)
[2020-06-07] MEDS: PRENATAL VITAMINS W/ FOLIC ACID TABLET (FP) PO SCH (10:19)
[2020-06-07] MEDS: ASPIRIN 81 MG CHEWABLE TABLETS PO SCH (10:19)
[2020-06-07] MEDS: BUPRENORPHINE/NALOXONE 4 MG/1 MG FILM PACKET SL SCH (10:19)
[2020-06-07] MEDS ORDERED: PT OWN MED DRAWER 7, Y5N ONE (10:20)
[2020-06-07] MEDS: FOLIC ACID 1 MG TABLET (FP) PO SCH (10:21)
[2020-06-07] MEDS: LOSARTAN POTASSIUM 25 MG TABLET PO SCH (10:21)
[2020-06-07] MEDS: amLODIPine BESYLATE 10 MG TABLET (FP) PO SCH (10:21)
[2020-06-07] MEDS: HYDROCHLOROTHIAZIDE 12.5 MG CAPSULE (FP) PO SCH (10:21)
[2020-06-07] MEDS: NICOTINE 14 MG/24 HOURS TOPICAL PATCH TD SCH (10:21)
[2020-06-07] MEDS: MIRTAZAPINE 15 MG TABLET (FP) PO SCH (21:41)
[2020-06-07] MEDS: THIAMINE HCL 100 MG TABLET (FP) PO SCH (21:41)
[2020-06-07] MEDS: hydrOXYzine PAMOATE 25 MG CAPSULE (FP) PO PRN (21:41)
[2020-06-07] MEDS: MELATONIN 5 MG TABLETS PO SCH (21:41)
[2020-06-08] MEDS: FERROUS SO4 325 MG TABLET (FP) PO SCH ×3 (07:00→17:35)
[2020-06-08 08:30] VITALS: TEMP 97.5
[2020-06-08] MEDS ORDERED: PT OWN MED DRAWER 7, Y5N ONE ×3 (09:07→21:27)
[2020-06-08] MEDS: PRENATAL VITAMINS W/ FOLIC ACID TABLET (FP) PO SCH (10:15)
[2020-06-08] MEDS: LOSARTAN POTASSIUM 25 MG TABLET PO SCH (10:15)
[2020-06-08] MEDS: amLODIPine BESYLATE 10 MG TABLET (FP) PO SCH (10:15)
[2020-06-08] MEDS: ASPIRIN 81 MG CHEWABLE TABLETS PO SCH (10:15)
[2020-06-08] MEDS: NICOTINE 14 MG/24 HOURS TOPICAL PATCH TD SCH (10:16)
[2020-06-08] MEDS: BUPRENORPHINE/NALOXONE 4 MG/1 MG FILM PACKET SL SCH (10:16)
[2020-06-08] MEDS: FOLIC ACID 1 MG TABLET (FP) PO SCH (10:17)
[2020-06-08] MEDS: HYDROCHLOROTHIAZIDE 12.5 MG CAPSULE (FP) PO SCH (10:17)
[2020-06-08] MEDS: MELATONIN 5 MG TABLETS PO SCH (21:24)
[2020-06-08] MEDS: THIAMINE HCL 100 MG TABLET (FP) PO SCH (21:25)
[2020-06-08] MEDS: MIRTAZAPINE 15 MG TABLET (FP) PO SCH (21:25)
[2020-06-08] MEDS: HYDROCORTISONE 0.5% TOPICAL CREAM 30 GM TUBE TP PRN (21:28)
[2020-06-09] MEDS: FERROUS SO4 325 MG TABLET (FP) PO SCH ×3 (07:37→17:44)
[2020-06-09] MEDS ORDERED: PT OWN MED DRAWER 7, Y5N ONE ×2 (08:23→09:58)
[2020-06-09] MEDS: PRENATAL VITAMINS W/ FOLIC ACID TABLET (FP) PO SCH (09:54)
[2020-06-09] MEDS: ASPIRIN 81 MG CHEWABLE TABLETS PO SCH (09:54)
[2020-06-09] MEDS: FOLIC ACID 1 MG TABLET (FP) PO SCH (09:54)
[2020-06-09] MEDS: amLODIPine BESYLATE 10 MG TABLET (FP) PO SCH (09:55)
[2020-06-09] MEDS: BUPRENORPHINE/NALOXONE 4 MG/1 MG FILM PACKET SL SCH (09:55)
[2020-06-09] MEDS: NICOTINE 14 MG/24 HOURS TOPICAL PATCH TD SCH (09:55)
[2020-06-09] MEDS: HYDROCHLOROTHIAZIDE 12.5 MG CAPSULE (FP) PO SCH (09:55)
[2020-06-09] MEDS: LOSARTAN POTASSIUM 25 MG TABLET PO SCH (09:58)
[2020-06-09] MEDS: HYDROCORTISONE 0.5% TOPICAL CREAM 30 GM TUBE TP PRN ×2 (09:59→21:19)
[2020-06-09 11:25] VITALS: BP 125/74; PULSE 79
[2020-06-09] MEDS: MIRTAZAPINE 15 MG TABLET (FP) PO SCH (21:18)
[2020-06-09] MEDS: MELATONIN 5 MG TABLETS PO SCH (21:18)
[2020-06-09] MEDS: THIAMINE HCL 100 MG TABLET (FP) PO SCH (21:18)
[2020-06-10] MEDS: FERROUS SO4 325 MG TABLET (FP) PO SCH (07:17)
[2020-06-10] MEDS: amLODIPine BESYLATE 10 MG TABLET (FP) PO SCH (10:10)
[2020-06-10] MEDS: ASPIRIN 81 MG CHEWABLE TABLETS PO SCH (10:10)
[2020-06-10] MEDS: FOLIC ACID 1 MG TABLET (FP) PO SCH (10:11)
[2020-06-10] MEDS: BUPRENORPHINE/NALOXONE 4 MG/1 MG FILM PACKET SL SCH (10:11)
[2020-06-10] MEDS: LOSARTAN POTASSIUM 25 MG TABLET PO SCH (10:11)
[2020-06-10] MEDS: HYDROCHLOROTHIAZIDE 12.5 MG CAPSULE (FP) PO SCH (10:11)
[2020-06-10] MEDS: PRENATAL VITAMINS W/ FOLIC ACID TABLET (FP) PO SCH (10:11)
[2020-06-10] MEDS: NICOTINE 14 MG/24 HOURS TOPICAL PATCH TD SCH (10:11)
== END 2020-06-10 10:35 | disposition home or self-care (01) | DRG 895 ==
LOC: YASAS 12:35 → Y5N 12:47
PROVIDERS: ADMIT Allergy & Immunology; ATTEND Allergy & Immunology
PROC: HZ42ZZZ Group Counseling for Substance Abuse Treatment, Cognitive-Behavioral (ICD-10-PCS; principal; 2020-05-27)
DX: F11.20 Opioid dependence, uncomplicated (principal); F19.282 Other psychoactive substance dependence with psychoactive substance-induced sleep disorder; F10.20 Alcohol dependence, uncomplicated; F17.210 Nicotine dependence, cigarettes, uncomplicated; F19.24 Other psychoactive substance dependence with psychoactive substance-induced mood disorder; F31.9 Bipolar disorder, unspecified; I10 Essential (primary) hypertension; J45.909 Unspecified asthma, uncomplicated; G47.00 Insomnia, unspecified; H91.92 Unspecified hearing loss, left ear; L40.9 Psoriasis, unspecified; Z62.810 Personal history of physical and sexual abuse in childhood; Z99.89 Dependence on other enabling machines and devices; Z88.8 Allergy status to other drugs, medicaments and biological substances
CPT/HCPCS: 36415; 82962; 85027; C9803; J0735; Q0162; U0003

== ENCOUNTER 2020-11-21 12:18 | Inpatient (IN) | payer OTHER ==
[2020-11-21 14:22] VITALS: BMI 22.8
[2020-11-21] MEDS ORDERED: MAG HYDROX/AL HYDROX/SIMETH 30 ML UNIT-DOSE CUP PO PRN (17:24)
[2020-11-21] MEDS ORDERED: MAGNESIUM HYDROX 2400MG/30ML ORAL SUSPENSION 30 ML CUP PO PRN (17:24)
[2020-11-21] MEDS ORDERED: ONDANSETRON *ODT* 4 MG TABLET SL PRN (17:24)
[2020-11-21] MEDS ORDERED: BISMUTH SUBSALICYLATE 524 MG/30 ML PO PRN (17:24)
[2020-11-21] MEDS ORDERED: diazePAM 5 MG TABLET PO PRN (17:24)
[2020-11-21] MEDS ORDERED: MAGNESIUM CITRATE 300 ML BOTTLE PO PRN (17:24)
[2020-11-21] MEDS ORDERED: NICOTINE 10 MG CARTRIDGE (INHALER) IH PRN (17:24)
[2020-11-21] MEDS ORDERED: MENTHOL/PHENOL 1 EACH UD MM PRN (17:24)
[2020-11-21] MEDS ORDERED: ACETAMINOPHEN 325 MG TABLET (FP) PO PRN (17:24)
[2020-11-21] MEDS ORDERED: methaDONE HCL 10 MG TABLET (FOR DETOX USE ONLY) PO ONE (19:00)
[2020-11-21] MEDS: diazePAM 5 MG TABLET PO SCH (22:36)
[2020-11-21] MEDS: THIAMINE HCL 100 MG TABLET (FP) PO SCH (22:37)
[2020-11-21] MEDS: MELATONIN 5 MG TABLETS PO SCH (22:37)
[2020-11-21] MEDS: cloNIDine HCL 0.1 MG TABLET PO PRN (23:33)
[2020-11-22] MEDS: diazePAM 5 MG TABLET PO SCH ×4 (06:08→22:12)
[2020-11-22] MEDS: ACETAMINOPHEN 325 MG TABLET (FP) PO PRN (06:09)
[2020-11-22] MEDS ORDERED: methaDONE HCL 10 MG TABLET (FOR DETOX USE ONLY) ONE (09:20)
[2020-11-22] MEDS: PRENATAL VITAMINS W/ FOLIC ACID TABLET (FP) PO SCH (10:03)
[2020-11-22] MEDS: METHOCARBAMOL 500 MG TABLET PO PRN (10:05)
[2020-11-22] MEDS: FLUOCINONIDE 0.05% TOP OINT (15 GM TUBE) TP SCH ×2 (15:37→22:13)
[2020-11-22] MEDS ORDERED: ALBUTEROL SO4 HFA INHALER IH PRN (16:26)
[2020-11-22] MEDS: HYDROCHLOROTHIAZIDE 12.5 MG CAPSULE (FP) PO SCH (17:27)
[2020-11-22] MEDS: cloNIDine HCL 0.1 MG TABLET PO PRN (22:13)
[2020-11-22] MEDS: MELATONIN 5 MG TABLETS PO SCH (22:13)
[2020-11-22] MEDS: THIAMINE HCL 100 MG TABLET (FP) PO SCH (22:15)
[2020-11-23] MEDS: diazePAM 5 MG TABLET PO SCH ×3 (06:51→23:26)
[2020-11-23] MEDS: ACETAMINOPHEN 325 MG TABLET (FP) PO PRN ×2 (09:13→19:12)
[2020-11-23] MEDS ORDERED: methaDONE HCL 10 MG TABLET (FOR DETOX USE ONLY) PO ONE (10:00)
[2020-11-23] MEDS: FLUOCINONIDE 0.05% TOP OINT (15 GM TUBE) TP SCH ×2 (10:43→23:26)
[2020-11-23] MEDS: HYDROCHLOROTHIAZIDE 12.5 MG CAPSULE (FP) PO SCH (10:43)
[2020-11-23] MEDS: PRENATAL VITAMINS W/ FOLIC ACID TABLET (FP) PO SCH (10:43)
[2020-11-23] MEDS: ASPIRIN 81 MG CHEWABLE TABLETS PO SCH (10:44)
[2020-11-23] MEDS: METHOCARBAMOL 500 MG TABLET PO PRN ×2 (10:45→19:12)
[2020-11-23] MEDS: IBUPROFEN 400 MG TABLET (FP) PO PRN (14:14)
[2020-11-23] MEDS: THIAMINE HCL 100 MG TABLET (FP) PO SCH (23:26)
[2020-11-23] MEDS: MELATONIN 5 MG TABLETS PO SCH (23:26)
[2020-11-24] MEDS: ACETAMINOPHEN 325 MG TABLET (FP) PO PRN (06:09)
[2020-11-24] MEDS: hydrOXYzine PAMOATE 25 MG CAPSULE (FP) PO PRN (06:10)
[2020-11-24] MEDS: diazePAM 5 MG TABLET PO SCH ×2 (06:11→17:56)
[2020-11-24] MEDS ORDERED: cloNIDine HCL 0.1 MG TABLET PO ONE (07:45)
[2020-11-24] MEDS ORDERED: cloNIDine HCL 0.1 MG TABLET PO PRN (09:06)
[2020-11-24] MEDS: amLODIPine BESYLATE 10 MG TABLET (FP) PO SCH (09:11)
[2020-11-24] MEDS: HYDROCHLOROTHIAZIDE 12.5 MG CAPSULE (FP) PO SCH (09:11)
[2020-11-24] MEDS: ASPIRIN 81 MG CHEWABLE TABLETS PO SCH (09:11)
[2020-11-24] MEDS: IBUPROFEN 400 MG TABLET (FP) PO PRN (09:14)
[2020-11-24] MEDS ORDERED: methaDONE HCL 10 MG TABLET (FOR DETOX USE ONLY) ONE (09:28)
[2020-11-24] MEDS: AMOX TR/POT CLAV 875MG/125MG TABLETS (FP) PO SCH ×2 (10:43→17:56)
[2020-11-24] MEDS: FLUOCINONIDE 0.05% TOP OINT (15 GM TUBE) TP SCH ×2 (10:44→22:57)
[2020-11-24] MEDS: PRENATAL VITAMINS W/ FOLIC ACID TABLET (FP) PO SCH (10:44)
[2020-11-24] MEDS: METHOCARBAMOL 500 MG TABLET PO PRN (10:54)
[2020-11-24 16:21] LABS: EOS % 4.1 % (0-4.5); HEMATOCRIT 36.3 % (32.4-45.2); HEMOGLOBIN 12.6 GM/dL (10.7-15.3); LYMPH % 38.3 % (8-40); MCHC 34.7 g/dl (32.0-36.0); MEAN PLT VOLUME 8.4 fl (7.5-11.1); MONO % 10.3 % (3.8-10.2); NEUT % 46.3 % (42.8-82.8); PLATELET COUNT 309 10^3/uL (134-434); RBC 3.71 M/mm3 (3.60-5.2); RDW 14.3 % (11.6-15.6); WHITE BLOOD COUNT 4.7 K/mm3 (4.0-10.0)
[2020-11-24 16:24] LABS: ALBUMIN 2.9 g/dl (3.4-5.0); BLOOD UREA NITROGEN 19.8 mg/dL (7-18)
[2020-11-24 16:28] LABS: CREATININE 0.8 mg/dL (0.55-1.3)
[2020-11-24 16:29] LABS: BILIRUBIN,TOTAL 0.5 mg/dL (0.2-1)
[2020-11-24] MEDS: THIAMINE HCL 100 MG TABLET (FP) PO SCH (22:57)
[2020-11-24] MEDS: MELATONIN 5 MG TABLETS PO SCH (22:57)
[2020-11-25] MEDS ORDERED: diazePAM 5 MG TABLET PO ONE (06:00)
[2020-11-25] MEDS: AMOX TR/POT CLAV 875MG/125MG TABLETS (FP) PO SCH ×2 (08:22→18:41)
[2020-11-25] MEDS ORDERED: methaDONE HCL 10 MG TABLET (FOR DETOX USE ONLY) PO ONE (10:00)
[2020-11-25] MEDS: hydrOXYzine PAMOATE 25 MG CAPSULE (FP) PO PRN ×2 (10:35→21:51)
[2020-11-25] MEDS: ASPIRIN 81 MG CHEWABLE TABLETS PO SCH (10:36)
[2020-11-25] MEDS: HYDROCHLOROTHIAZIDE 12.5 MG CAPSULE (FP) PO SCH (10:36)
[2020-11-25] MEDS: PRENATAL VITAMINS W/ FOLIC ACID TABLET (FP) PO SCH (10:36)
[2020-11-25] MEDS: amLODIPine BESYLATE 10 MG TABLET (FP) PO SCH (10:36)
[2020-11-25] MEDS: FLUOCINONIDE 0.05% TOP OINT (15 GM TUBE) TP SCH ×2 (10:37→22:21)
[2020-11-25] MEDS: THIAMINE HCL 100 MG TABLET (FP) PO SCH (21:50)
[2020-11-25] MEDS: MELATONIN 5 MG TABLETS PO SCH (21:50)
[2020-11-26] MEDS: AMOX TR/POT CLAV 875MG/125MG TABLETS (FP) PO SCH (07:17)
[2020-11-26] MEDS: FLUOCINONIDE 0.05% TOP OINT (15 GM TUBE) TP SCH (09:23)
[2020-11-26] MEDS: HYDROCHLOROTHIAZIDE 12.5 MG CAPSULE (FP) PO SCH (09:23)
[2020-11-26] MEDS: ASPIRIN 81 MG CHEWABLE TABLETS PO SCH (09:23)
[2020-11-26] MEDS: PRENATAL VITAMINS W/ FOLIC ACID TABLET (FP) PO SCH (09:23)
[2020-11-26] MEDS: amLODIPine BESYLATE 10 MG TABLET (FP) PO SCH (09:23)
[2020-11-26 09:28] VITALS: BP 167/84; PULSE 64; TEMP 96.9
== END 2020-11-26 11:07 | disposition home or self-care (01) | DRG 897 ==
LOC: YASAS 12:18 → Y6N 18:11
PROVIDERS: ADMIT Allergy & Immunology; ATTEND Allergy & Immunology
PROC: HZ2ZZZZ Detoxification Services for Substance Abuse Treatment (ICD-10-PCS; principal; 2020-11-21)
DX: F11.23 Opioid dependence with withdrawal (principal); F10.230 Alcohol dependence with withdrawal, uncomplicated; F17.210 Nicotine dependence, cigarettes, uncomplicated; F19.24 Other psychoactive substance dependence with psychoactive substance-induced mood disorder; I10 Essential (primary) hypertension; J45.909 Unspecified asthma, uncomplicated; L03.039 Cellulitis of unspecified toe; L30.9 Dermatitis, unspecified; L40.9 Psoriasis, unspecified; M19.90 Unspecified osteoarthritis, unspecified site; Z86.11 Personal history of tuberculosis; Z86.19 Personal history of other infectious and parasitic diseases; Z88.8 Allergy status to other drugs, medicaments and biological substances; Z88.5 Allergy status to narcotic agent
CPT/HCPCS: 36415; 80053; 85025; 86780; 93005; 93010; C9803; J0735; Q0162; U0003; U0005

== ENCOUNTER 2021-08-05 10:10 | Inpatient (IN) | payer OTHER ==
[2021-08-05 11:02] VITALS: BMI 25.9
[2021-08-05] MEDS ORDERED: ACETAMINOPHEN 325 MG TABLET (FP) PO PRN ×2 (12:16)
[2021-08-05] MEDS ORDERED: DICYCLOMINE HCL 10 MG CAPSULE PO PRN (12:16)
[2021-08-05] MEDS ORDERED: IBUPROFEN 400 MG TABLET (FP) PO PRN (12:16)
[2021-08-05] MEDS ORDERED: BENZOCAINE/MENTHOL (CHLORASEPTIC ) LOZENGE MM PRN (12:16)
[2021-08-05] MEDS ORDERED: MAGNESIUM CITRATE 300 ML BOTTLE PO PRN (12:16)
[2021-08-05] MEDS ORDERED: ONDANSETRON *ODT* 4 MG TABLET SL PRN (12:16)
[2021-08-05] MEDS ORDERED: BISMUTH SUBSALICYLATE 524 MG/30 ML PO PRN (12:16)
[2021-08-05] MEDS ORDERED: MAG HYDROX/AL HYDROX/SIMETH 30 ML UNIT-DOSE CUP PO PRN (12:16)
[2021-08-05] MEDS ORDERED: NALOXONE HCL (KLOXXADO) 8 MG SPRAY NS PRN (12:16)
[2021-08-05] MEDS ORDERED: LOPERAMIDE HCL 2 MG CAPSULE PO PRN (12:16)
[2021-08-05] MEDS ORDERED: methaDONE HCL 10 MG TABLET (FOR DETOX USE ONLY) PO ONE (12:45)
[2021-08-05] MEDS ORDERED: cloNIDine HCL 0.1 MG TABLET ONE (13:15)
[2021-08-05] MEDS ORDERED: chlordiazePOXIDE HCL 25 MG CAPSULE ONE (13:15)
[2021-08-05] MEDS ORDERED: methaDONE HCL 10 MG TABLET (FOR DETOX USE ONLY) ONE (13:18)
[2021-08-05] MEDS: chlordiazePOXIDE HCL 25 MG CAPSULE PO PRN (13:21)
[2021-08-05] MEDS: cloNIDine HCL 0.1 MG TABLET PO PRN (13:21)
[2021-08-05] MEDS: ASPIRIN 81 MG CHEWABLE TABLETS PO SCH (14:44)
[2021-08-05] MEDS: PRENATAL VITAMINS W/ FOLIC ACID TABLET (FP) PO SCH (14:44)
[2021-08-05] MEDS: FERROUS SO4 325 MG TABLET (FP) PO SCH (14:44)
[2021-08-05] MEDS: amLODIPine BESYLATE 10 MG TABLET (FP) PO SCH (14:44)
[2021-08-05] MEDS: hydrOXYzine PAMOATE 25 MG CAPSULE (FP) PO SCH ×3 (14:45→22:22)
[2021-08-05] MEDS: NICOTINE 14 MG/24 HOURS TOPICAL PATCH TD SCH (14:45)
[2021-08-05] MEDS: FOLIC ACID 1 MG TABLET (FP) PO SCH (14:50)
[2021-08-05] MEDS: chlordiazePOXIDE HCL 25 MG CAPSULE PO SCH ×2 (17:22→22:22)
[2021-08-05] MEDS: NICOTINE 10 MG CARTRIDGE (INHALER) IH PRN (21:35)
[2021-08-05] MEDS: MELATONIN 5 MG TABLETS PO SCH (22:22)
[2021-08-05] MEDS: THIAMINE HCL 100 MG TABLET (FP) PO SCH (22:22)
[2021-08-05] MEDS: ARTIFICIAL TEARS (POLYVINYL ALCOHOL) OPTH DROPS OU SCH (22:25)
[2021-08-06] MEDS: MAGNESIUM HYDROX 2400MG/30ML ORAL SUSPENSION 30 ML CUP PO PRN ×3 (05:33→23:26)
[2021-08-06] MEDS: chlordiazePOXIDE HCL 25 MG CAPSULE PO SCH ×4 (05:34→23:27)
[2021-08-06] MEDS: hydrOXYzine PAMOATE 25 MG CAPSULE (FP) PO SCH ×5 (05:34→23:26)
[2021-08-06] MEDS ORDERED: methaDONE HCL 10 MG TABLET (FOR DETOX USE ONLY) ONE (09:46)
[2021-08-06 10:23] LABS: HEMATOCRIT 31.1 % (32.4-45.2); MCH 29.9 pg (25.7-33.7); MCHC 32.3 g/dl (32.0-36.0); MEAN CELL VOLUME 92.7 fl (80-96); MEAN PLT VOLUME 8.6 fl (7.5-11.1); PLATELET COUNT 372 10^3/uL (134-434); RBC 3.35 M/mm3 (3.60-5.2); RDW 17.2 % (11.6-15.6); WHITE BLOOD COUNT 3.9 K/mm3 (4.0-10.0)
[2021-08-06] MEDS: PRENATAL VITAMINS W/ FOLIC ACID TABLET (FP) PO SCH (10:23)
[2021-08-06] MEDS: ASPIRIN 81 MG CHEWABLE TABLETS PO SCH (10:23)
[2021-08-06] MEDS: ARTIFICIAL TEARS (POLYVINYL ALCOHOL) OPTH DROPS OU SCH ×2 (10:23→23:26)
[2021-08-06] MEDS: NICOTINE 14 MG/24 HOURS TOPICAL PATCH TD SCH (10:24)
[2021-08-06] MEDS: FERROUS SO4 325 MG TABLET (FP) PO SCH (10:24)
[2021-08-06] MEDS: amLODIPine BESYLATE 10 MG TABLET (FP) PO SCH (10:24)
[2021-08-06] MEDS: FOLIC ACID 1 MG TABLET (FP) PO SCH (10:24)
[2021-08-06] MEDS: HYDROCHLOROTHIAZIDE 12.5 MG CAPSULE (FP) PO SCH (10:25)
[2021-08-06 10:45] LABS: ALBUMIN 3.4 g/dl (3.4-5.0); BLOOD UREA NITROGEN 22.3 mg/dL (7-18)
[2021-08-06 10:48] LABS: CREATININE 0.7 mg/dL (0.55-1.3)
[2021-08-06 10:50] LABS: BILIRUBIN,TOTAL 0.3 mg/dL (0.2-1); TOT PROT 7.6 g/dl (6.4-8.2)
[2021-08-06] MEDS: MINERAL OIL/PETROLAT/WATER TOPICAL CREAM 113 GM JAR TP SCH ×2 (13:42→22:27)
[2021-08-06] MEDS: chlordiazePOXIDE HCL 25 MG CAPSULE PO PRN (20:09)
[2021-08-06] MEDS: THIAMINE HCL 100 MG TABLET (FP) PO SCH (23:26)
[2021-08-06] MEDS: MELATONIN 5 MG TABLETS PO SCH (23:26)
[2021-08-07] MEDS: chlordiazePOXIDE HCL 25 MG CAPSULE PO SCH ×4 (06:01→22:23)
[2021-08-07] MEDS: hydrOXYzine PAMOATE 25 MG CAPSULE (FP) PO SCH ×5 (06:03→22:22)
[2021-08-07] MEDS ORDERED: methaDONE HCL 10 MG TABLET (FOR DETOX USE ONLY) PO ONE (10:00)
[2021-08-07] MEDS: ASPIRIN 81 MG CHEWABLE TABLETS PO SCH (10:43)
[2021-08-07] MEDS: ARTIFICIAL TEARS (POLYVINYL ALCOHOL) OPTH DROPS OU SCH ×2 (10:43→22:59)
[2021-08-07] MEDS: FERROUS SO4 325 MG TABLET (FP) PO SCH (10:44)
[2021-08-07] MEDS: MINERAL OIL/PETROLAT/WATER TOPICAL CREAM 113 GM JAR TP SCH ×2 (10:44→22:59)
[2021-08-07] MEDS: HYDROCHLOROTHIAZIDE 12.5 MG CAPSULE (FP) PO SCH (10:44)
[2021-08-07] MEDS: amLODIPine BESYLATE 10 MG TABLET (FP) PO SCH (10:44)
[2021-08-07] MEDS: FOLIC ACID 1 MG TABLET (FP) PO SCH (10:44)
[2021-08-07] MEDS: PRENATAL VITAMINS W/ FOLIC ACID TABLET (FP) PO SCH (10:44)
[2021-08-07] MEDS: NICOTINE 14 MG/24 HOURS TOPICAL PATCH TD SCH (10:47)
[2021-08-07] MEDS: METHOCARBAMOL 500 MG TABLET PO PRN (17:56)
[2021-08-07] MEDS: cloNIDine HCL 0.1 MG TABLET PO PRN (17:56)
[2021-08-07] MEDS: THIAMINE HCL 100 MG TABLET (FP) PO SCH (22:22)
[2021-08-07] MEDS: MELATONIN 5 MG TABLETS PO SCH (22:22)
[2021-08-07] MEDS: ALBUTEROL SO4 HFA INHALER IH PRN (22:27)
[2021-08-08] MEDS ORDERED: chlordiazePOXIDE HCL 10 MG CAPSULE PO PRN
[2021-08-08] MEDS: chlordiazePOXIDE HCL 10 MG CAPSULE PO SCH ×4 (06:31→23:01)
[2021-08-08] MEDS: hydrOXYzine PAMOATE 25 MG CAPSULE (FP) PO SCH ×5 (06:32→23:01)
[2021-08-08] MEDS ORDERED: methaDONE HCL 10 MG TABLET (FOR DETOX USE ONLY) ONE (10:02)
[2021-08-08] MEDS: HYDROCHLOROTHIAZIDE 12.5 MG CAPSULE (FP) PO SCH (10:54)
[2021-08-08] MEDS: FERROUS SO4 325 MG TABLET (FP) PO SCH (10:54)
[2021-08-08] MEDS: FOLIC ACID 1 MG TABLET (FP) PO SCH (10:54)
[2021-08-08] MEDS: ASPIRIN 81 MG CHEWABLE TABLETS PO SCH (10:55)
[2021-08-08] MEDS: MINERAL OIL/PETROLAT/WATER TOPICAL CREAM 113 GM JAR TP SCH ×2 (10:55→22:47)
[2021-08-08] MEDS: PRENATAL VITAMINS W/ FOLIC ACID TABLET (FP) PO SCH (10:55)
[2021-08-08] MEDS: ARTIFICIAL TEARS (POLYVINYL ALCOHOL) OPTH DROPS OU SCH ×2 (10:56→23:02)
[2021-08-08] MEDS: amLODIPine BESYLATE 10 MG TABLET (FP) PO SCH (10:56)
[2021-08-08] MEDS: NICOTINE 14 MG/24 HOURS TOPICAL PATCH TD SCH (10:56)
[2021-08-08] MEDS: THIAMINE HCL 100 MG TABLET (FP) PO SCH (23:01)
[2021-08-08] MEDS: MELATONIN 5 MG TABLETS PO SCH (23:01)
[2021-08-08] MEDS: MAGNESIUM HYDROX 2400MG/30ML ORAL SUSPENSION 30 ML CUP PO PRN (23:01)
[2021-08-08] MEDS: NICOTINE 10 MG CARTRIDGE (INHALER) IH PRN (23:05)
[2021-08-09] MEDS: hydrOXYzine PAMOATE 25 MG CAPSULE (FP) PO SCH ×5 (05:48→22:19)
[2021-08-09] MEDS: chlordiazePOXIDE HCL 10 MG CAPSULE PO SCH ×2 (05:48→18:11)
[2021-08-09] MEDS ORDERED: methaDONE HCL 10 MG TABLET (FOR DETOX USE ONLY) PO ONE (10:00)
[2021-08-09] MEDS ORDERED: TRIMETHOBENZAMIDE HCL 200MG/2ML INJ IM PRN (10:31)
[2021-08-09] MEDS: FERROUS SO4 325 MG TABLET (FP) PO SCH (11:16)
[2021-08-09] MEDS: ARTIFICIAL TEARS (POLYVINYL ALCOHOL) OPTH DROPS OU SCH ×2 (11:17→22:17)
[2021-08-09] MEDS: ASPIRIN 81 MG CHEWABLE TABLETS PO SCH (11:17)
[2021-08-09] MEDS: MINERAL OIL/PETROLAT/WATER TOPICAL CREAM 113 GM JAR TP SCH ×2 (11:17→23:37)
[2021-08-09] MEDS: amLODIPine BESYLATE 10 MG TABLET (FP) PO SCH (11:17)
[2021-08-09] MEDS: HYDROCHLOROTHIAZIDE 12.5 MG CAPSULE (FP) PO SCH (11:17)
[2021-08-09] MEDS: FOLIC ACID 1 MG TABLET (FP) PO SCH (11:17)
[2021-08-09] MEDS: METHOCARBAMOL 500 MG TABLET PO PRN (11:17)
[2021-08-09] MEDS: NICOTINE 14 MG/24 HOURS TOPICAL PATCH TD SCH (11:18)
[2021-08-09] MEDS: PRENATAL VITAMINS W/ FOLIC ACID TABLET (FP) PO SCH (11:18)
[2021-08-09] MEDS: FAMOTIDINE 20 MG TABLET PO SCH ×2 (11:20→22:19)
[2021-08-09] MEDS ORDERED: SUCRALFATE 1 GM TABLET (FP) PO ONE (14:00)
[2021-08-09] MEDS: MAGNESIUM HYDROX 2400MG/30ML ORAL SUSPENSION 30 ML CUP PO PRN (15:58)
[2021-08-09] MEDS: ALBUTEROL SO4 HFA INHALER IH PRN (22:17)
[2021-08-09] MEDS: MELATONIN 5 MG TABLETS PO SCH (22:17)
[2021-08-09] MEDS: NICOTINE 10 MG CARTRIDGE (INHALER) IH PRN (22:18)
[2021-08-09] MEDS: THIAMINE HCL 100 MG TABLET (FP) PO SCH (22:19)
[2021-08-10] MEDS ORDERED: chlordiazePOXIDE HCL 10 MG CAPSULE PO ONE (05:00)
[2021-08-10] MEDS: hydrOXYzine PAMOATE 25 MG CAPSULE (FP) PO SCH ×3 (06:24→13:22)
[2021-08-10] MEDS: HYDROCHLOROTHIAZIDE 12.5 MG CAPSULE (FP) PO SCH (09:48)
[2021-08-10] MEDS: FERROUS SO4 325 MG TABLET (FP) PO SCH (09:48)
[2021-08-10] MEDS: ASPIRIN 81 MG CHEWABLE TABLETS PO SCH (09:48)
[2021-08-10] MEDS: FAMOTIDINE 20 MG TABLET PO SCH (09:48)
[2021-08-10] MEDS: FOLIC ACID 1 MG TABLET (FP) PO SCH (09:48)
[2021-08-10] MEDS: MINERAL OIL/PETROLAT/WATER TOPICAL CREAM 113 GM JAR TP SCH (09:48)
[2021-08-10] MEDS: amLODIPine BESYLATE 10 MG TABLET (FP) PO SCH (09:48)
[2021-08-10] MEDS: PRENATAL VITAMINS W/ FOLIC ACID TABLET (FP) PO SCH (09:48)
[2021-08-10] MEDS: NICOTINE 14 MG/24 HOURS TOPICAL PATCH TD SCH (09:49)
[2021-08-10] MEDS: ARTIFICIAL TEARS (POLYVINYL ALCOHOL) OPTH DROPS OU SCH (09:49)
[2021-08-10 13:19] VITALS: BP 147/69; PULSE 74; TEMP 97.4
== END 2021-08-10 16:04 | disposition home or self-care (01) | DRG 897 ==
LOC: YASAS 10:10 → Y6N 12:46
PROVIDERS: ADMIT Allergy & Immunology; ATTEND Surgery
PROC: HZ2ZZZZ Detoxification Services for Substance Abuse Treatment (ICD-10-PCS; principal; 2021-08-05)
DX: F11.23 Opioid dependence with withdrawal (principal); F10.230 Alcohol dependence with withdrawal, uncomplicated; F17.213 Nicotine dependence, cigarettes, with withdrawal; F31.70 Bipolar disorder, currently in remission, most recent episode unspecified; I10 Essential (primary) hypertension; J45.20 Mild intermittent asthma, uncomplicated; K21.9 Gastro-esophageal reflux disease without esophagitis; D50.9 Iron deficiency anemia, unspecified; Z86.11 Personal history of tuberculosis; Z99.89 Dependence on other enabling machines and devices; Z88.5 Allergy status to narcotic agent; Z88.8 Allergy status to other drugs, medicaments and biological substances; W07.XXXA Fall from chair, initial encounter; Y92.232 Corridor of hospital as the place of occurrence of the external cause
CPT/HCPCS: 36415; 71046-TC-FY; 80053; 85027; 86780; C9803-CS; J0735; Q0162; U0003; U0005

== ENCOUNTER 2022-10-03 11:56 | Inpatient (IN) | payer OTHER ==
[2022-10-03 12:37] VITALS: BMI 24.0
[2022-10-03] MEDS ORDERED: guaiFENesin 600 MG TABLET.ER (FP) PO PRN (14:33)
[2022-10-03] MEDS ORDERED: DICYCLOMINE HCL 10 MG CAPSULE PO PRN (14:33)
[2022-10-03] MEDS ORDERED: POLYETHYLENE GLYCOL (HEALTHYLAX) 3350 17 GM PACKET PO PRN (14:33)
[2022-10-03] MEDS ORDERED: BENZOCAINE/MENTHOL (CHLORASEPTIC ) LOZENGE MM PRN (14:33)
[2022-10-03] MEDS ORDERED: MAGNESIUM HYDROX 2400MG/30ML ORAL SUSPENSION 30 ML CUP PO PRN (14:33)
[2022-10-03] MEDS ORDERED: IBUPROFEN 600 MG TABLET (FP) PO PRN (14:33)
[2022-10-03] MEDS ORDERED: ACETAMINOPHEN 325 MG TABLET (FP) PO PRN (14:33)
[2022-10-03] MEDS ORDERED: BISMUTH SUBSALICYLATE 524 MG/30 ML PO PRN (14:33)
[2022-10-03] MEDS ORDERED: NALOXONE HCL (KLOXXADO) 8 MG SPRAY NS PRN (14:33)
[2022-10-03] MEDS ORDERED: MAG HYDROX/AL HYDROX/SIMETH 30 ML UNIT-DOSE CUP PO PRN (14:33)
[2022-10-03] MEDS ORDERED: LOPERAMIDE HCL 2 MG CAPSULE PO PRN (14:33)
[2022-10-03] MEDS ORDERED: ONDANSETRON *ODT* 4 MG TABLET SL PRN (14:33)
[2022-10-03] MEDS ORDERED: NALOXONE HCL 0.4 MG/ML VIAL IM PRN (14:33)
[2022-10-03] MEDS ORDERED: BENZONATATE 200 MG CAPSULE PO PRN (14:33)
[2022-10-03] MEDS ORDERED: IBUPROFEN 400 MG TABLET (FP) PO PRN (14:33)
[2022-10-03] MEDS ORDERED: LORazepam 1 MG TABLET PO PRN (15:00)
[2022-10-03] MEDS ORDERED: methaDONE HCL 10 MG TABLET (FOR DETOX USE ONLY) PO ONE (15:00)
[2022-10-03] MEDS ORDERED: cloNIDine HCL 0.1 MG TABLET PO PRN (15:00)
[2022-10-03] MEDS ORDERED: methaDONE HCL 10 MG TABLET (FOR DETOX USE ONLY) ONE (15:27)
[2022-10-03] MEDS: LORazepam 2 MG TABLET PO SCH ×2 (17:25→22:07)
[2022-10-03] MEDS: THIAMINE HCL 100 MG TABLET (FP) PO SCH (22:07)
[2022-10-03] MEDS: MELATONIN 5 MG TABLETS PO SCH (22:07)
[2022-10-04] MEDS: LORazepam 2 MG TABLET PO SCH ×2 (05:24→10:10)
[2022-10-04] MEDS: PRENATAL VITAMINS W/ FOLIC ACID TABLET (FP) PO SCH (10:08)
[2022-10-04] MEDS: HYDROCHLOROTHIAZIDE 12.5 MG CAPSULE (FP) PO SCH (10:09)
[2022-10-04] MEDS: amLODIPine BESYLATE 10 MG TABLET (FP) PO SCH (10:09)
[2022-10-04] MEDS: PANTOPRAZOLE 40 MG TABLET PO SCH (10:09)
[2022-10-04 11:41] LABS: CHLORIDE 106 mmol/L (98-107); POTASSIUM 4.3 mmol/L (3.5-5.1); SODIUM 140 mmol/L (136-145)
[2022-10-04 11:43] LABS: ALBUMIN 3.2 g/dl (3.4-5.0)
[2022-10-04 11:44] LABS: HEMATOCRIT 31.5 % (32.4-45.2); HEMOGLOBIN 9.7 GM/dL (10.7-15.3); MCH 28.8 pg (25.7-33.7); MCHC 30.7 g/dl (32.0-36.0); MEAN CELL VOLUME 93.7 fl (80-96); MEAN PLT VOLUME 8.9 fl (7.5-11.1); PLATELET COUNT 440 10^3/uL (134-434); RBC 3.36 M/mm3 (3.60-5.2); RDW 20.6 % (11.6-15.6); WHITE BLOOD COUNT 5.4 K/mm3 (4.0-10.0)
[2022-10-04 11:46] LABS: ANION GAP 5 MMOL/L (8-16); BLOOD UREA NITROGEN 18.2 mg/dL (7-18); CO2 28 mmol/L (21-32); GLUCOSE,RANDOM 113 mg/dL (74-106)
[2022-10-04 11:47] LABS: SGOT/AST 21 U/L (15-37)
[2022-10-04 11:48] LABS: BILIRUBIN,TOTAL < 0.1 mg/dL (0.2-1); TOT PROT 7.3 g/dl (6.4-8.2)
[2022-10-04 11:49] LABS: ALK PHOS 78 U/L (45-117); CREATININE 0.7 mg/dL (0.55-1.3); SGPT/ALT 21 U/L (13-61)
[2022-10-04] MEDS: hydrOXYzine PAMOATE 25 MG CAPSULE (FP) PO PRN (13:13)
[2022-10-04] MEDS: LORazepam 1 MG TABLET PO SCH ×2 (16:58→22:06)
[2022-10-04] MEDS: CLOTRIMAZOLE 1% CREAM TP SCH (22:05)
[2022-10-04] MEDS: THIAMINE HCL 100 MG TABLET (FP) PO SCH (22:05)
[2022-10-04] MEDS: MELATONIN 5 MG TABLETS PO SCH (22:05)
[2022-10-05] MEDS: LORazepam 1 MG TABLET PO SCH ×4 (05:23→22:30)
[2022-10-05] MEDS ORDERED: methaDONE HCL 10 MG TABLET (FOR DETOX USE ONLY) PO ONE (10:00)
[2022-10-05] MEDS: PRENATAL VITAMINS W/ FOLIC ACID TABLET (FP) PO SCH (10:21)
[2022-10-05] MEDS: amLODIPine BESYLATE 10 MG TABLET (FP) PO SCH (10:21)
[2022-10-05] MEDS: HYDROCHLOROTHIAZIDE 12.5 MG CAPSULE (FP) PO SCH (10:21)
[2022-10-05] MEDS: PANTOPRAZOLE 40 MG TABLET PO SCH (10:21)
[2022-10-05] MEDS: CLOTRIMAZOLE 1% CREAM TP SCH ×2 (10:21→22:30)
[2022-10-05] MEDS ORDERED: METHOCARBAMOL 500 MG TABLET PO ONE ×2 (18:00)
[2022-10-05] MEDS ORDERED: ALBUTEROL SO4 HFA INHALER IH PRN (18:06)
[2022-10-05] MEDS: METHOCARBAMOL 500 MG TABLET PO PRN (18:36)
[2022-10-05] MEDS: THIAMINE HCL 100 MG TABLET (FP) PO SCH (22:30)
[2022-10-05] MEDS: MELATONIN 5 MG TABLETS PO SCH (22:30)
[2022-10-06] MEDS ORDERED: LORazepam 0.5 MG TABLET PO PRN
[2022-10-06] MEDS: LORazepam 0.5 MG TABLET PO SCH ×4 (05:47→22:22)
[2022-10-06] MEDS: PRENATAL VITAMINS W/ FOLIC ACID TABLET (FP) PO SCH (10:11)
[2022-10-06] MEDS: HYDROCHLOROTHIAZIDE 12.5 MG CAPSULE (FP) PO SCH (10:12)
[2022-10-06] MEDS: amLODIPine BESYLATE 10 MG TABLET (FP) PO SCH (10:12)
[2022-10-06] MEDS: PANTOPRAZOLE 40 MG TABLET PO SCH (10:12)
[2022-10-06] MEDS: CLOTRIMAZOLE 1% CREAM TP SCH ×2 (10:13→22:23)
[2022-10-06] MEDS ORDERED: NICOTINE POLACRILEX 4 MG GUM BUC PRN (10:35)
[2022-10-06] MEDS: NICOTINE 21 MG/24 HOURS TOPICAL PATCH TD PRN (14:34)
[2022-10-06] MEDS: THIAMINE HCL 100 MG TABLET (FP) PO SCH (22:22)
[2022-10-06] MEDS: MELATONIN 5 MG TABLETS PO SCH (22:22)
[2022-10-07] MEDS ORDERED: LORazepam 0.5 MG TABLET PO ONE (05:00)
[2022-10-07] MEDS: amLODIPine BESYLATE 10 MG TABLET (FP) PO SCH (09:53)
[2022-10-07] MEDS: HYDROCHLOROTHIAZIDE 12.5 MG CAPSULE (FP) PO SCH (09:53)
[2022-10-07] MEDS: PANTOPRAZOLE 40 MG TABLET PO SCH (09:53)
[2022-10-07] MEDS: CLOTRIMAZOLE 1% CREAM TP SCH ×2 (09:53→22:26)
[2022-10-07] MEDS: PRENATAL VITAMINS W/ FOLIC ACID TABLET (FP) PO SCH (09:53)
[2022-10-07] MEDS: NICOTINE 21 MG/24 HOURS TOPICAL PATCH TD PRN (09:56)
[2022-10-07] MEDS ORDERED: methaDONE HCL 10 MG TABLET (FOR DETOX USE ONLY) PO ONE (10:00)
[2022-10-07 20:56] VITALS: RESP 17
[2022-10-07] MEDS: MELATONIN 5 MG TABLETS PO SCH (22:24)
[2022-10-07] MEDS: METHOCARBAMOL 500 MG TABLET PO PRN (22:24)
[2022-10-07] MEDS: THIAMINE HCL 100 MG TABLET (FP) PO SCH (22:25)
[2022-10-08] MEDS: hydrOXYzine PAMOATE 25 MG CAPSULE (FP) PO PRN (01:51)
[2022-10-08 06:47] VITALS: BP 141/84; PULSE 74; TEMP 97.7
== END 2022-10-08 06:27 | disposition home or self-care (01) | DRG 897 ==
LOC: YASAS 11:56 → Y6N 14:39
PROVIDERS: ADMIT Allergy & Immunology; ATTEND Surgery
PROC: HZ2ZZZZ Detoxification Services for Substance Abuse Treatment (ICD-10-PCS; principal; 2022-10-03)
DX: F11.23 Opioid dependence with withdrawal (principal); F10.230 Alcohol dependence with withdrawal, uncomplicated; F17.210 Nicotine dependence, cigarettes, uncomplicated; F31.9 Bipolar disorder, unspecified; D64.9 Anemia, unspecified; I10 Essential (primary) hypertension; M54.50 Low back pain, unspecified; R73.9 Hyperglycemia, unspecified; Z86.19 Personal history of other infectious and parasitic diseases; Z86.11 Personal history of tuberculosis; Z99.89 Dependence on other enabling machines and devices; Z88.8 Allergy status to other drugs, medicaments and biological substances
CPT/HCPCS: 36415; 80053; 82607; 82746; 83036; 83540; 83550; 85027; 86780; 87635; Q0162

== ENCOUNTER 2023-01-21 09:54 | Inpatient (IN) | payer OTHER ==
[2023-01-21 11:29] VITALS: BMI 24.9
[2023-01-21] MEDS ORDERED: METHOCARBAMOL 500 MG TABLET PO PRN (12:21)
[2023-01-21] MEDS ORDERED: BENZONATATE 200 MG CAPSULE PO PRN (12:21)
[2023-01-21] MEDS ORDERED: POLYETHYLENE GLYCOL (HEALTHYLAX) 3350 17 GM PACKET PO PRN (12:21)
[2023-01-21] MEDS ORDERED: NALOXONE HCL (KLOXXADO) 8 MG SPRAY NS PRN (12:21)
[2023-01-21] MEDS ORDERED: IBUPROFEN 400 MG TABLET (FP) PO PRN (12:21)
[2023-01-21] MEDS ORDERED: LORazepam 1 MG TABLET PO PRN (12:21)
[2023-01-21] MEDS ORDERED: hydrOXYzine PAMOATE 25 MG CAPSULE (FP) PO PRN (12:21)
[2023-01-21] MEDS ORDERED: NALOXONE HCL 0.4 MG/ML VIAL IM PRN (12:21)
[2023-01-21] MEDS ORDERED: BISMUTH SUBSALICYLATE 262 MG/15 ML BTL PO PRN (12:21)
[2023-01-21] MEDS ORDERED: MAG HYDROX/AL HYDROX/SIMETH 30 ML UNIT-DOSE CUP PO PRN (12:21)
[2023-01-21] MEDS ORDERED: BENZOCAINE/MENTHOL (CHLORASEPTIC ) LOZENGE MM PRN (12:21)
[2023-01-21] MEDS ORDERED: ACETAMINOPHEN 325 MG TABLET (FP) PO PRN (12:21)
[2023-01-21] MEDS ORDERED: IBUPROFEN 600 MG TABLET (FP) PO PRN (12:21)
[2023-01-21] MEDS ORDERED: ONDANSETRON *ODT* 4 MG TABLET SL PRN (12:21)
[2023-01-21] MEDS ORDERED: MAGNESIUM HYDROX 2400MG/30ML ORAL SUSPENSION 30 ML CUP PO PRN (12:21)
[2023-01-21] MEDS ORDERED: LOPERAMIDE HCL 2 MG CAPSULE PO PRN (12:21)
[2023-01-21] MEDS ORDERED: DICYCLOMINE HCL 10 MG CAPSULE PO PRN (12:21)
[2023-01-21] MEDS ORDERED: guaiFENesin 600 MG TABLET.ER (FP) PO PRN (12:21)
[2023-01-21] MEDS ORDERED: NALOXONE (NARCAN) HCL 4 MG/0.1 ML SPRAY NS PRN (12:23)
[2023-01-21] MEDS: PRENATAL VITAMINS W/ FOLIC ACID TABLET (FP) PO SCH ×2 (13:16→13:25)
[2023-01-21] MEDS: NICOTINE 14 MG/24 HOURS TOPICAL PATCH TD SCH (13:16)
[2023-01-21] MEDS ORDERED: NICOTINE 14 MG/24 HOURS TOPICAL PATCH TD ONE (13:21)
[2023-01-21] MEDS ORDERED: LORazepam 1 MG TABLET ONE (13:21)
[2023-01-21] MEDS ORDERED: PRENATAL VITAMINS W/ FOLIC ACID TABLET (FP) PO ONE (13:22)
[2023-01-21] MEDS ORDERED: methaDONE HCL 40 MG DISPERSABLE TABLET PO ONE (15:00)
[2023-01-21] MEDS ORDERED: diphenhydrAMINE HCL 25 MG CAPSULE (FP) PO PRN (17:03)
[2023-01-21] MEDS: LORazepam 2 MG TABLET PO SCH ×2 (17:09→22:08)
[2023-01-21] MEDS ORDERED: MELATONIN 5 MG TABLETS PO SCH (22:00)
[2023-01-21] MEDS: THIAMINE HCL 100 MG TABLET (FP) PO SCH (22:08)
[2023-01-22] MEDS: LORazepam 2 MG TABLET PO SCH ×4 (05:57→22:12)
[2023-01-22] MEDS: methaDONE HCL 40 MG DISPERSABLE TABLET PO SCH (05:57)
[2023-01-22] MEDS ORDERED: HYDROCHLOROTHIAZIDE 12.5 MG CAPSULE (FP) PO SCH (10:00)
[2023-01-22] MEDS: PRENATAL VITAMINS W/ FOLIC ACID TABLET (FP) PO SCH (10:03)
[2023-01-22] MEDS: PANTOPRAZOLE 40 MG TABLET PO SCH (10:03)
[2023-01-22] MEDS: amLODIPine BESYLATE 10 MG TABLET (FP) PO SCH (10:03)
[2023-01-22] MEDS: NICOTINE 14 MG/24 HOURS TOPICAL PATCH TD SCH (10:03)
[2023-01-22] MEDS: HYDROCHLOROTHIAZIDE 12.5 MG CAPSULE (FP) PO SCH (10:06)
[2023-01-22 16:05] LABS: HEMATOCRIT 25.3 % (32.4-45.2); MCH 32.9 pg (25.7-33.7); MCHC 31.6 g/dl (32.0-36.0); MEAN PLT VOLUME 8.4 fl (7.5-11.1); PLATELET COUNT 332 10^3/uL (134-434); POTASSIUM 3.7 mmol/L (3.5-5.1); RBC 2.44 M/mm3 (3.60-5.2); RDW 18.1 % (11.6-15.6); WHITE BLOOD COUNT 4.6 K/mm3 (4.0-10.0)
[2023-01-22 16:18] LABS: CALCIUM 8.6 mg/dL (8.5-10.1)
[2023-01-22 16:19] LABS: BLOOD UREA NITROGEN 20.2 mg/dL (7-18)
[2023-01-22 16:22] LABS: CREATININE 0.8 mg/dL (0.55-1.3)
[2023-01-22 16:23] LABS: BILIRUBIN,TOTAL 0.4 mg/dL (0.2-1)
[2023-01-22 16:24] LABS: TOT PROT 6.6 g/dl (6.4-8.2)
[2023-01-22] MEDS: THIAMINE HCL 100 MG TABLET (FP) PO SCH (22:12)
[2023-01-23] MEDS: methaDONE HCL 40 MG DISPERSABLE TABLET PO SCH (05:54)
[2023-01-23] MEDS: LORazepam 1 MG TABLET PO SCH ×4 (05:54→22:20)
[2023-01-23] MEDS: NICOTINE 14 MG/24 HOURS TOPICAL PATCH TD SCH (10:36)
[2023-01-23] MEDS: HYDROCHLOROTHIAZIDE 12.5 MG CAPSULE (FP) PO SCH (10:36)
[2023-01-23] MEDS: PRENATAL VITAMINS W/ FOLIC ACID TABLET (FP) PO SCH (10:36)
[2023-01-23] MEDS: amLODIPine BESYLATE 10 MG TABLET (FP) PO SCH (10:36)
[2023-01-23] MEDS: PANTOPRAZOLE 40 MG TABLET PO SCH (10:36)
[2023-01-23] MEDS: LACTULOSE 20 GM/30 ML UDC (FOR ORAL USE ONLY) PO SCH ×4 (11:47→22:21)
[2023-01-23] MEDS: THIAMINE HCL 100 MG TABLET (FP) PO SCH (22:19)
[2023-01-24] MEDS ORDERED: LORazepam 0.5 MG TABLET PO PRN
[2023-01-24] MEDS: LORazepam 0.5 MG TABLET PO SCH ×4 (05:51→22:18)
[2023-01-24] MEDS: methaDONE HCL 40 MG DISPERSABLE TABLET PO SCH (05:52)
[2023-01-24] MEDS: LACTULOSE 20 GM/30 ML UDC (FOR ORAL USE ONLY) PO SCH ×5 (10:18→22:20)
[2023-01-24] MEDS: HYDROCHLOROTHIAZIDE 12.5 MG CAPSULE (FP) PO SCH (10:18)
[2023-01-24] MEDS: NICOTINE 14 MG/24 HOURS TOPICAL PATCH TD SCH (10:19)
[2023-01-24] MEDS: PRENATAL VITAMINS W/ FOLIC ACID TABLET (FP) PO SCH (10:19)
[2023-01-24] MEDS: PANTOPRAZOLE 40 MG TABLET PO SCH (10:19)
[2023-01-24] MEDS: amLODIPine BESYLATE 10 MG TABLET (FP) PO SCH (10:19)
[2023-01-24] MEDS: THIAMINE HCL 100 MG TABLET (FP) PO SCH (22:18)
[2023-01-25] MEDS ORDERED: LORazepam 0.5 MG TABLET PO ONE (05:00)
[2023-01-25] MEDS: methaDONE HCL 40 MG DISPERSABLE TABLET PO SCH (05:46)
[2023-01-25 09:16] VITALS: RESP 18
[2023-01-25] MEDS: PRENATAL VITAMINS W/ FOLIC ACID TABLET (FP) PO SCH (10:19)
[2023-01-25] MEDS: LACTULOSE 20 GM/30 ML UDC (FOR ORAL USE ONLY) PO SCH ×2 (10:19→14:10)
[2023-01-25] MEDS: amLODIPine BESYLATE 10 MG TABLET (FP) PO SCH (10:20)
[2023-01-25] MEDS: PANTOPRAZOLE 40 MG TABLET PO SCH (10:20)
[2023-01-25] MEDS: HYDROCHLOROTHIAZIDE 12.5 MG CAPSULE (FP) PO SCH (10:20)
[2023-01-25] MEDS: NICOTINE 14 MG/24 HOURS TOPICAL PATCH TD SCH (10:21)
[2023-01-25 14:28] VITALS: BP 159/80; PULSE 97; TEMP 98
== END 2023-01-25 14:42 | disposition other institution (70) | DRG 897 ==
LOC: YASAS 09:54 → Y3N 12:39
PROVIDERS: ADMIT Allergy & Immunology; ATTEND Surgery
PROC: HZ2ZZZZ Detoxification Services for Substance Abuse Treatment (ICD-10-PCS; principal; 2023-01-21)
DX: F10.230 Alcohol dependence with withdrawal, uncomplicated (principal); F11.20 Opioid dependence, uncomplicated; F31.81 Bipolar II disorder; E72.20 Disorder of urea cycle metabolism, unspecified; F17.210 Nicotine dependence, cigarettes, uncomplicated; F19.24 Other psychoactive substance dependence with psychoactive substance-induced mood disorder; D64.9 Anemia, unspecified; I10 Essential (primary) hypertension; Z91.81 History of falling; Z99.89 Dependence on other enabling machines and devices; Z86.19 Personal history of other infectious and parasitic diseases; Z86.11 Personal history of tuberculosis; Z88.8 Allergy status to other drugs, medicaments and biological substances
CPT/HCPCS: 36415; 80053; 80307; 82140; 85027; 86780; 87635

== ENCOUNTER 2023-01-25 14:51 | Inpatient (IN) | payer OTHER ==
[2023-01-25] MEDS ORDERED: IBUPROFEN 400 MG TABLET (FP) PO PRN (16:21)
[2023-01-25] MEDS ORDERED: MAG HYDROX/AL HYDROX/SIMETH 30 ML UNIT-DOSE CUP PO PRN (16:21)
[2023-01-25] MEDS ORDERED: BENZONATATE 200 MG CAPSULE PO PRN (16:21)
[2023-01-25] MEDS ORDERED: NALOXONE HCL (KLOXXADO) 8 MG SPRAY NS PRN (16:21)
[2023-01-25] MEDS ORDERED: LOPERAMIDE HCL 2 MG CAPSULE PO PRN (16:21)
[2023-01-25] MEDS ORDERED: ACETAMINOPHEN 325 MG TABLET (FP) PO PRN (16:21)
[2023-01-25] MEDS ORDERED: IBUPROFEN 600 MG TABLET (FP) PO PRN (16:21)
[2023-01-25] MEDS ORDERED: POLYETHYLENE GLYCOL (HEALTHYLAX) 3350 17 GM PACKET PO PRN (16:21)
[2023-01-25] MEDS ORDERED: NALOXONE HCL 0.4 MG/ML VIAL IVPUSH PRN (16:21)
[2023-01-25] MEDS ORDERED: guaiFENesin 600 MG TABLET.ER (FP) PO PRN (16:21)
[2023-01-25] MEDS ORDERED: MAGNESIUM HYDROX 2400MG/30ML ORAL SUSPENSION 30 ML CUP PO PRN (16:21)
[2023-01-25] MEDS: THIAMINE HCL 100 MG TABLET (FP) PO SCH (22:05)
[2023-01-25] MEDS: MELATONIN 5 MG TABLETS PO SCH (22:05)
[2023-01-26] MEDS: amLODIPine BESYLATE 10 MG TABLET (FP) PO SCH (09:47)
[2023-01-26] MEDS: HYDROCHLOROTHIAZIDE 12.5 MG CAPSULE (FP) PO SCH (09:47)
[2023-01-26] MEDS: PRENATAL VITAMINS W/ FOLIC ACID TABLET (FP) PO SCH (09:47)
[2023-01-26] MEDS: ARIPiprazole 5 MG TABLET PO SCH (09:47)
[2023-01-26] MEDS: PANTOPRAZOLE 40 MG TABLET PO SCH (09:47)
[2023-01-26] MEDS: hydrOXYzine PAMOATE 25 MG CAPSULE (FP) PO PRN (09:48)
[2023-01-26] MEDS: methaDONE HCL 10 MG TABLET PO SCH (10:44)
[2023-01-26] MEDS ORDERED: FLU VACCINE (FLULAVAL) PF 60 MCG/0.5 ML SYRINGE 2023-2024 IM ONE (12:00)
[2023-01-26] MEDS: NICOTINE 14 MG/24 HOURS TOPICAL PATCH TD SCH (14:01)
[2023-01-26] MEDS: LACTULOSE 20 GM/30 ML UDC (FOR ORAL USE ONLY) PO SCH ×2 (16:28→21:48)
[2023-01-26] MEDS: THIAMINE HCL 100 MG TABLET (FP) PO SCH (21:48)
[2023-01-26] MEDS: MELATONIN 5 MG TABLETS PO SCH (21:48)
[2023-01-27] MEDS: LACTULOSE 20 GM/30 ML UDC (FOR ORAL USE ONLY) PO SCH ×3 (06:19→21:21)
[2023-01-27] MEDS: methaDONE HCL 10 MG TABLET PO SCH (06:20)
[2023-01-27] MEDS: amLODIPine BESYLATE 10 MG TABLET (FP) PO SCH (09:41)
[2023-01-27] MEDS: ARIPiprazole 5 MG TABLET PO SCH (09:41)
[2023-01-27] MEDS: NICOTINE 14 MG/24 HOURS TOPICAL PATCH TD SCH (09:41)
[2023-01-27] MEDS: PRENATAL VITAMINS W/ FOLIC ACID TABLET (FP) PO SCH (09:41)
[2023-01-27] MEDS: PANTOPRAZOLE 40 MG TABLET PO SCH (09:41)
[2023-01-27] MEDS: HYDROCHLOROTHIAZIDE 12.5 MG CAPSULE (FP) PO SCH (09:41)
[2023-01-27 12:59] LABS: BASO % 0.6 % (0-2.0); EOS % 5.3 % (0-4.5); HEMATOCRIT 29.3 % (32.4-45.2); HEMOGLOBIN 9.2 GM/dL (10.7-15.3); MCH 32.4 pg (25.7-33.7); MCHC 31.5 g/dl (32.0-36.0); MEAN CELL VOLUME 102.6 fl (80-96); MEAN PLT VOLUME 8.4 fl (7.5-11.1); MONO % 15.7 % (3.8-10.2); NEUT % 61.4 % (42.8-82.8); PLATELET COUNT 367 10^3/uL (134-434); RBC 2.85 M/mm3 (3.60-5.2); RDW 18.2 % (11.6-15.6); WHITE BLOOD COUNT 6.4 K/mm3 (4.0-10.0)
[2023-01-27 13:18] LABS: CALCIUM 8.9 mg/dL (8.5-10.1)
[2023-01-27 13:19] LABS: ALBUMIN 3.2 g/dl (3.4-5.0); BLOOD UREA NITROGEN 12.8 mg/dL (7-18)
[2023-01-27 13:22] LABS: CREATININE 0.8 mg/dL (0.55-1.3)
[2023-01-27 13:23] LABS: BILIRUBIN,TOTAL 0.2 mg/dL (0.2-1); TOT PROT 7.2 g/dl (6.4-8.2)
[2023-01-27] MEDS: THIAMINE HCL 100 MG TABLET (FP) PO SCH (21:21)
[2023-01-27] MEDS: MELATONIN 5 MG TABLETS PO SCH (21:21)
[2023-01-28] MEDS: hydrOXYzine PAMOATE 25 MG CAPSULE (FP) PO PRN (04:20)
[2023-01-28] MEDS: LACTULOSE 20 GM/30 ML UDC (FOR ORAL USE ONLY) PO SCH ×3 (06:05→21:52)
[2023-01-28] MEDS: methaDONE HCL 10 MG TABLET PO SCH (06:05)
[2023-01-28] MEDS: HYDROCHLOROTHIAZIDE 12.5 MG CAPSULE (FP) PO SCH (10:16)
[2023-01-28] MEDS: PRENATAL VITAMINS W/ FOLIC ACID TABLET (FP) PO SCH (10:16)
[2023-01-28] MEDS: NICOTINE 14 MG/24 HOURS TOPICAL PATCH TD SCH (10:16)
[2023-01-28] MEDS: ARIPiprazole 5 MG TABLET PO SCH (10:16)
[2023-01-28] MEDS: PANTOPRAZOLE 40 MG TABLET PO SCH (10:16)
[2023-01-28] MEDS: amLODIPine BESYLATE 10 MG TABLET (FP) PO SCH (10:16)
[2023-01-28] MEDS: COLLOIDAL OATMEAL 1 BAR EACH TP PRN (14:48)
[2023-01-28] MEDS ORDERED: HYDROCORTISONE 0.5% TOPICAL CREAM 30 GM TUBE TP PRN (16:41)
[2023-01-28] MEDS ORDERED: AMMONIUM LACTATE 12% LOTION 225 GM BOTTLE TP PRN (16:42)
[2023-01-28] MEDS: THIAMINE HCL 100 MG TABLET (FP) PO SCH (21:51)
[2023-01-28] MEDS: MELATONIN 5 MG TABLETS PO SCH (21:51)
[2023-01-29] MEDS: LACTULOSE 20 GM/30 ML UDC (FOR ORAL USE ONLY) PO SCH ×3 (05:40→21:08)
[2023-01-29] MEDS: methaDONE HCL 10 MG TABLET PO SCH (05:40)
[2023-01-29] MEDS: ARIPiprazole 5 MG TABLET PO SCH (10:20)
[2023-01-29] MEDS: NICOTINE 14 MG/24 HOURS TOPICAL PATCH TD SCH (10:21)
[2023-01-29] MEDS: HYDROCHLOROTHIAZIDE 25 MG TABLET (FP) PO SCH (10:21)
[2023-01-29] MEDS: amLODIPine BESYLATE 10 MG TABLET (FP) PO SCH (10:21)
[2023-01-29] MEDS: PRENATAL VITAMINS W/ FOLIC ACID TABLET (FP) PO SCH (10:21)
[2023-01-29] MEDS: PANTOPRAZOLE 40 MG TABLET PO SCH (10:24)
[2023-01-29] MEDS: THIAMINE HCL 100 MG TABLET (FP) PO SCH (21:08)
[2023-01-29] MEDS: MELATONIN 5 MG TABLETS PO SCH (21:08)
[2023-01-30] MEDS: methaDONE HCL 10 MG TABLET PO SCH (06:07)
[2023-01-30] MEDS: LACTULOSE 20 GM/30 ML UDC (FOR ORAL USE ONLY) PO SCH ×3 (06:07→21:30)
[2023-01-30] MEDS: amLODIPine BESYLATE 10 MG TABLET (FP) PO SCH (10:30)
[2023-01-30] MEDS: ARIPiprazole 5 MG TABLET PO SCH (10:30)
[2023-01-30] MEDS: PANTOPRAZOLE 40 MG TABLET PO SCH (10:30)
[2023-01-30] MEDS: NICOTINE 14 MG/24 HOURS TOPICAL PATCH TD SCH (10:31)
[2023-01-30] MEDS: PRENATAL VITAMINS W/ FOLIC ACID TABLET (FP) PO SCH (10:31)
[2023-01-30] MEDS: HYDROCHLOROTHIAZIDE 25 MG TABLET (FP) PO SCH (10:33)
[2023-01-30] MEDS: BENZOCAINE/MENTHOL (CHLORASEPTIC ) LOZENGE MM PRN (10:41)
[2023-01-30] MEDS: MELATONIN 5 MG TABLETS PO SCH (21:30)
[2023-01-30] MEDS: THIAMINE HCL 100 MG TABLET (FP) PO SCH (21:30)
[2023-01-30] MEDS: hydrOXYzine PAMOATE 25 MG CAPSULE (FP) PO PRN (21:31)
[2023-01-31] MEDS: methaDONE HCL 10 MG TABLET PO SCH (06:10)
[2023-01-31] MEDS: LACTULOSE 20 GM/30 ML UDC (FOR ORAL USE ONLY) PO SCH ×3 (06:11→22:00)
[2023-01-31] MEDS: amLODIPine BESYLATE 10 MG TABLET (FP) PO SCH (09:55)
[2023-01-31] MEDS: ARIPiprazole 5 MG TABLET PO SCH (09:55)
[2023-01-31] MEDS: PRENATAL VITAMINS W/ FOLIC ACID TABLET (FP) PO SCH (09:55)
[2023-01-31] MEDS: HYDROCHLOROTHIAZIDE 25 MG TABLET (FP) PO SCH (09:55)
[2023-01-31] MEDS: PANTOPRAZOLE 40 MG TABLET PO SCH (09:55)
[2023-01-31] MEDS: NICOTINE 14 MG/24 HOURS TOPICAL PATCH TD SCH (09:56)
[2023-01-31] MEDS ORDERED: HYDROCORTISONE 0.5% TOPICAL OINTMENT TUBE TP PRN (16:19)
[2023-01-31] MEDS: MELATONIN 5 MG TABLETS PO SCH (22:00)
[2023-01-31] MEDS: THIAMINE HCL 100 MG TABLET (FP) PO SCH (22:01)
[2023-01-31] MEDS: hydrOXYzine PAMOATE 25 MG CAPSULE (FP) PO PRN (22:01)
[2023-01-31] MEDS: HYDROCORTISONE 0.5% TOPICAL CREAM 30 GM TUBE TP PRN (22:02)
[2023-02-01] MEDS: LACTULOSE 20 GM/30 ML UDC (FOR ORAL USE ONLY) PO SCH ×3 (06:29→21:30)
[2023-02-01] MEDS: methaDONE HCL 10 MG TABLET PO SCH (06:30)
[2023-02-01] MEDS: PRENATAL VITAMINS W/ FOLIC ACID TABLET (FP) PO SCH (09:58)
[2023-02-01] MEDS: ARIPiprazole 5 MG TABLET PO SCH (09:58)
[2023-02-01] MEDS: HYDROCHLOROTHIAZIDE 25 MG TABLET (FP) PO SCH (09:58)
[2023-02-01] MEDS: amLODIPine BESYLATE 10 MG TABLET (FP) PO SCH (09:58)
[2023-02-01] MEDS: PANTOPRAZOLE 40 MG TABLET PO SCH (09:58)
[2023-02-01] MEDS: NICOTINE 14 MG/24 HOURS TOPICAL PATCH TD SCH (09:59)
[2023-02-01] MEDS: THIAMINE HCL 100 MG TABLET (FP) PO SCH (21:30)
[2023-02-01] MEDS: MELATONIN 5 MG TABLETS PO SCH (21:30)
[2023-02-01] MEDS: hydrOXYzine PAMOATE 25 MG CAPSULE (FP) PO PRN (21:30)
[2023-02-02] MEDS: methaDONE HCL 10 MG TABLET PO SCH (05:59)
[2023-02-02] MEDS: LACTULOSE 20 GM/30 ML UDC (FOR ORAL USE ONLY) PO SCH ×3 (06:00→21:33)
[2023-02-02] MEDS: PRENATAL VITAMINS W/ FOLIC ACID TABLET (FP) PO SCH (10:02)
[2023-02-02] MEDS: ARIPiprazole 5 MG TABLET PO SCH (10:02)
[2023-02-02] MEDS: NICOTINE 14 MG/24 HOURS TOPICAL PATCH TD SCH (10:02)
[2023-02-02] MEDS: HYDROCHLOROTHIAZIDE 25 MG TABLET (FP) PO SCH (10:02)
[2023-02-02] MEDS: amLODIPine BESYLATE 10 MG TABLET (FP) PO SCH (10:03)
[2023-02-02] MEDS: PANTOPRAZOLE 40 MG TABLET PO SCH (10:03)
[2023-02-02] MEDS: HYDROCORTISONE 0.5% TOPICAL CREAM 30 GM TUBE TP PRN (10:08)
[2023-02-02] MEDS: MELATONIN 5 MG TABLETS PO SCH (21:33)
[2023-02-02] MEDS: THIAMINE HCL 100 MG TABLET (FP) PO SCH (21:33)
[2023-02-03] MEDS: methaDONE HCL 10 MG TABLET PO SCH (05:44)
[2023-02-03] MEDS: LACTULOSE 20 GM/30 ML UDC (FOR ORAL USE ONLY) PO SCH ×3 (05:45→21:33)
[2023-02-03] MEDS: methaDONE HCL 40 MG DISPERSABLE TABLET PO SCH (07:27)
[2023-02-03] MEDS: HYDROCHLOROTHIAZIDE 25 MG TABLET (FP) PO SCH (10:03)
[2023-02-03] MEDS: ARIPiprazole 5 MG TABLET PO SCH (10:03)
[2023-02-03] MEDS: NICOTINE 14 MG/24 HOURS TOPICAL PATCH TD SCH (10:03)
[2023-02-03] MEDS: PANTOPRAZOLE 40 MG TABLET PO SCH (10:03)
[2023-02-03] MEDS: amLODIPine BESYLATE 10 MG TABLET (FP) PO SCH (10:03)
[2023-02-03] MEDS: PRENATAL VITAMINS W/ FOLIC ACID TABLET (FP) PO SCH (10:03)
[2023-02-03 11:59] LABS: HEMOGLOBIN 9.6 GM/dL (10.7-15.3); MCH 31.8 pg (25.7-33.7); MCHC 32.2 g/dl (32.0-36.0); MEAN CELL VOLUME 98.8 fl (80-96); MEAN PLT VOLUME 8.1 fl (7.5-11.1); PLATELET COUNT 486 10^3/uL (134-434); RBC 3.03 M/mm3 (3.60-5.2); RDW 17.1 % (11.6-15.6); WHITE BLOOD COUNT 6.2 K/mm3 (4.0-10.0)
[2023-02-03] MEDS: HYDROCORTISONE 0.5% TOPICAL CREAM 30 GM TUBE TP PRN (15:06)
[2023-02-03] MEDS: MELATONIN 5 MG TABLETS PO SCH (21:33)
[2023-02-03] MEDS: THIAMINE HCL 100 MG TABLET (FP) PO SCH (21:33)
[2023-02-04] MEDS: methaDONE HCL 40 MG DISPERSABLE TABLET PO SCH (05:57)
[2023-02-04] MEDS: LACTULOSE 20 GM/30 ML UDC (FOR ORAL USE ONLY) PO SCH ×3 (05:57→21:17)
[2023-02-04] MEDS: NICOTINE 14 MG/24 HOURS TOPICAL PATCH TD SCH (09:40)
[2023-02-04] MEDS: HYDROCHLOROTHIAZIDE 25 MG TABLET (FP) PO SCH (09:40)
[2023-02-04] MEDS: amLODIPine BESYLATE 10 MG TABLET (FP) PO SCH (09:40)
[2023-02-04] MEDS: PRENATAL VITAMINS W/ FOLIC ACID TABLET (FP) PO SCH (09:40)
[2023-02-04] MEDS: PANTOPRAZOLE 40 MG TABLET PO SCH (09:40)
[2023-02-04] MEDS: ARIPiprazole 5 MG TABLET PO SCH (09:40)
[2023-02-04] MEDS: MELATONIN 5 MG TABLETS PO SCH (21:17)
[2023-02-04] MEDS: THIAMINE HCL 100 MG TABLET (FP) PO SCH (21:17)
[2023-02-05] MEDS ORDERED: MELATONIN 5 MG TABLETS PO ONE (00:46)
[2023-02-05] MEDS: LACTULOSE 20 GM/30 ML UDC (FOR ORAL USE ONLY) PO SCH ×3 (06:04→21:32)
[2023-02-05] MEDS: methaDONE HCL 40 MG DISPERSABLE TABLET PO SCH (06:04)
[2023-02-05] MEDS: ARIPiprazole 5 MG TABLET PO SCH (10:07)
[2023-02-05] MEDS: PRENATAL VITAMINS W/ FOLIC ACID TABLET (FP) PO SCH (10:07)
[2023-02-05] MEDS: amLODIPine BESYLATE 10 MG TABLET (FP) PO SCH (10:08)
[2023-02-05] MEDS: NICOTINE 14 MG/24 HOURS TOPICAL PATCH TD SCH (10:08)
[2023-02-05] MEDS: HYDROCHLOROTHIAZIDE 25 MG TABLET (FP) PO SCH (10:08)
[2023-02-05] MEDS: PANTOPRAZOLE 40 MG TABLET PO SCH (10:09)
[2023-02-05] MEDS ORDERED: FLU VACCINE (FLULAVAL) PF 60 MCG/0.5 ML SYRINGE 2023-2024 IM ONE (12:00)
[2023-02-05] MEDS: THIAMINE HCL 100 MG TABLET (FP) PO SCH (21:31)
[2023-02-05] MEDS: MELATONIN 5 MG TABLETS PO SCH (21:32)
[2023-02-06] MEDS ORDERED: IBUPROFEN 400 MG TABLET (FP) PO ONE ×2 (04:47→22:11)
[2023-02-06] MEDS: methaDONE HCL 40 MG DISPERSABLE TABLET PO SCH (06:08)
[2023-02-06] MEDS: LACTULOSE 20 GM/30 ML UDC (FOR ORAL USE ONLY) PO SCH ×3 (06:08→21:40)
[2023-02-06] MEDS: NICOTINE 14 MG/24 HOURS TOPICAL PATCH TD SCH (09:47)
[2023-02-06] MEDS: HYDROCHLOROTHIAZIDE 25 MG TABLET (FP) PO SCH (09:47)
[2023-02-06] MEDS: amLODIPine BESYLATE 10 MG TABLET (FP) PO SCH (09:47)
[2023-02-06] MEDS: PANTOPRAZOLE 40 MG TABLET PO SCH (09:47)
[2023-02-06] MEDS: ARIPiprazole 5 MG TABLET PO SCH (09:47)
[2023-02-06] MEDS: PRENATAL VITAMINS W/ FOLIC ACID TABLET (FP) PO SCH (09:47)
[2023-02-06] MEDS: THIAMINE HCL 100 MG TABLET (FP) PO SCH (21:40)
[2023-02-06] MEDS: MELATONIN 5 MG TABLETS PO SCH (21:40)
[2023-02-07] MEDS: LACTULOSE 20 GM/30 ML UDC (FOR ORAL USE ONLY) PO SCH ×4 (06:02→21:31)
[2023-02-07] MEDS: methaDONE HCL 40 MG DISPERSABLE TABLET PO SCH (06:03)
[2023-02-07] MEDS ORDERED: ACETAMINOPHEN 325 MG TABLET (FP) PO PRN (09:03)
[2023-02-07] MEDS: PANTOPRAZOLE 40 MG TABLET PO SCH (09:32)
[2023-02-07] MEDS: NICOTINE 14 MG/24 HOURS TOPICAL PATCH TD SCH (09:32)
[2023-02-07] MEDS: HYDROCHLOROTHIAZIDE 25 MG TABLET (FP) PO SCH (09:32)
[2023-02-07] MEDS: ARIPiprazole 5 MG TABLET PO SCH (09:32)
[2023-02-07] MEDS: amLODIPine BESYLATE 10 MG TABLET (FP) PO SCH (09:32)
[2023-02-07] MEDS: PRENATAL VITAMINS W/ FOLIC ACID TABLET (FP) PO SCH (09:33)
[2023-02-07] MEDS: THIAMINE HCL 100 MG TABLET (FP) PO SCH (21:31)
[2023-02-07] MEDS: MELATONIN 5 MG TABLETS PO SCH (21:31)
[2023-02-08] MEDS: methaDONE HCL 40 MG DISPERSABLE TABLET PO SCH (06:09)
[2023-02-08] MEDS: LACTULOSE 20 GM/30 ML UDC (FOR ORAL USE ONLY) PO SCH ×2 (06:09→21:42)
[2023-02-08] MEDS: amLODIPine BESYLATE 10 MG TABLET (FP) PO SCH (09:30)
[2023-02-08] MEDS: PANTOPRAZOLE 40 MG TABLET PO SCH (09:30)
[2023-02-08] MEDS: HYDROCHLOROTHIAZIDE 25 MG TABLET (FP) PO SCH (09:30)
[2023-02-08] MEDS: ARIPiprazole 5 MG TABLET PO SCH (09:30)
[2023-02-08] MEDS: PRENATAL VITAMINS W/ FOLIC ACID TABLET (FP) PO SCH (09:31)
[2023-02-08] MEDS: NICOTINE 14 MG/24 HOURS TOPICAL PATCH TD SCH (09:31)
[2023-02-08] MEDS: HYDROCORTISONE 0.5% TOPICAL CREAM 30 GM TUBE TP PRN (12:54)
[2023-02-08] MEDS ORDERED: amLODIPine BESYLATE 10 MG TABLET (FP) PO SCH (13:21)
[2023-02-08] MEDS ORDERED: cloNIDine HCL 0.1 MG TABLET PO PRN (13:47)
[2023-02-08] MEDS: MELATONIN 5 MG TABLETS PO SCH (21:42)
[2023-02-08] MEDS: THIAMINE HCL 100 MG TABLET (FP) PO SCH (21:42)
[2023-02-09] MEDS: HYDROCHLOROTHIAZIDE 25 MG TABLET (FP) PO SCH (06:02)
[2023-02-09] MEDS: methaDONE HCL 40 MG DISPERSABLE TABLET PO SCH (06:02)
[2023-02-09] MEDS: NICOTINE 14 MG/24 HOURS TOPICAL PATCH TD SCH (09:43)
[2023-02-09] MEDS: PRENATAL VITAMINS W/ FOLIC ACID TABLET (FP) PO SCH (09:43)
[2023-02-09] MEDS: ARIPiprazole 5 MG TABLET PO SCH (09:43)
[2023-02-09] MEDS: PANTOPRAZOLE 40 MG TABLET PO SCH (09:43)
[2023-02-09] MEDS: amLODIPine BESYLATE 10 MG TABLET (FP) PO SCH (09:43)
[2023-02-09] MEDS: LACTULOSE 20 GM/30 ML UDC (FOR ORAL USE ONLY) PO SCH ×2 (09:43→21:24)
[2023-02-09] MEDS ORDERED: hydrALAZINE HCL 10 MG TABLET PO SCH (10:00)
[2023-02-09] MEDS: METHYL SALICYLATE/MENTHOL OINT 30 GM TUBE TP SCH ×2 (12:22→21:23)
[2023-02-09] MEDS: HYDROCORTISONE 0.5% TOPICAL CREAM 30 GM TUBE TP PRN (14:50)
[2023-02-09] MEDS: THIAMINE HCL 100 MG TABLET (FP) PO SCH (21:23)
[2023-02-09] MEDS: ALBUTEROL SO4 HFA INHALER IH PRN (21:23)
[2023-02-09] MEDS: MELATONIN 5 MG TABLETS PO SCH (21:24)
[2023-02-09] MEDS: COLLOIDAL OATMEAL 1 BAR EACH TP PRN (21:27)
[2023-02-10] MEDS: methaDONE HCL 40 MG DISPERSABLE TABLET PO SCH (05:57)
[2023-02-10] MEDS: HYDROCHLOROTHIAZIDE 25 MG TABLET (FP) PO SCH (05:57)
[2023-02-10] MEDS: PANTOPRAZOLE 40 MG TABLET PO SCH (09:55)
[2023-02-10] MEDS: LACTULOSE 20 GM/30 ML UDC (FOR ORAL USE ONLY) PO SCH ×2 (09:56→21:26)
[2023-02-10] MEDS: PRENATAL VITAMINS W/ FOLIC ACID TABLET (FP) PO SCH (09:56)
[2023-02-10] MEDS: NICOTINE 14 MG/24 HOURS TOPICAL PATCH TD SCH (09:56)
[2023-02-10] MEDS: ARIPiprazole 5 MG TABLET PO SCH (09:56)
[2023-02-10] MEDS: amLODIPine BESYLATE 10 MG TABLET (FP) PO SCH (09:56)
[2023-02-10] MEDS: METHYL SALICYLATE/MENTHOL OINT 30 GM TUBE TP SCH ×2 (09:56→21:26)
[2023-02-10] MEDS: HYDROCORTISONE 0.5% TOPICAL CREAM 30 GM TUBE TP PRN (09:57)
[2023-02-10] MEDS: FERROUS SO4 300 MG/5 ML ORAL SOLN UNIT DOSE CUPS PO SCH (11:36)
[2023-02-10 16:36] LABS: BASO % 0.9 % (0-2.0); EOS % 11.8 % (0-4.5); HEMATOCRIT 30.3 % (32.4-45.2); HEMOGLOBIN 9.8 GM/dL (10.7-15.3); MCHC 32.3 g/dl (32.0-36.0); MEAN CELL VOLUME 96.1 fl (80-96); MEAN PLT VOLUME 8.6 fl (7.5-11.1); MONO % 13.6 % (3.8-10.2); NEUT % 53.7 % (42.8-82.8); PLATELET COUNT 508 10^3/uL (134-434); RBC 3.16 M/mm3 (3.60-5.2); RDW 17.3 % (11.6-15.6); WHITE BLOOD COUNT 5.7 K/mm3 (4.0-10.0)
[2023-02-10] MEDS: ALBUTEROL SO4 HFA INHALER IH PRN (21:26)
[2023-02-10] MEDS: MELATONIN 5 MG TABLETS PO SCH (21:27)
[2023-02-10] MEDS: traZODone HCL 50 MG TABLET (FP) PO SCH (21:27)
[2023-02-10] MEDS: THIAMINE HCL 100 MG TABLET (FP) PO SCH (21:27)
[2023-02-11] MEDS: methaDONE HCL 40 MG DISPERSABLE TABLET PO SCH (05:54)
[2023-02-11] MEDS: HYDROCHLOROTHIAZIDE 25 MG TABLET (FP) PO SCH (05:55)
[2023-02-11] MEDS: PRENATAL VITAMINS W/ FOLIC ACID TABLET (FP) PO SCH (09:44)
[2023-02-11] MEDS: LACTULOSE 20 GM/30 ML UDC (FOR ORAL USE ONLY) PO SCH ×2 (09:45→21:47)
[2023-02-11] MEDS: METHYL SALICYLATE/MENTHOL OINT 30 GM TUBE TP SCH ×2 (09:45→21:49)
[2023-02-11] MEDS: ARIPiprazole 5 MG TABLET PO SCH (09:45)
[2023-02-11] MEDS: PANTOPRAZOLE 40 MG TABLET PO SCH (09:45)
[2023-02-11] MEDS: amLODIPine BESYLATE 10 MG TABLET (FP) PO SCH (09:45)
[2023-02-11] MEDS: NICOTINE 14 MG/24 HOURS TOPICAL PATCH TD SCH (09:45)
[2023-02-11] MEDS: FERROUS SO4 300 MG/5 ML ORAL SOLN UNIT DOSE CUPS PO SCH (09:49)
[2023-02-11] MEDS: HYDROCORTISONE 0.5% TOPICAL CREAM 30 GM TUBE TP PRN (09:51)
[2023-02-11] MEDS: ZINC OXIDE 20% TOPICAL OINTMENT 30 GM TUBE TP PRN (15:29)
[2023-02-11] MEDS ORDERED: PSEUDOEPHEDRINE HCL 30 MG TABLET PO PRN (18:04)
[2023-02-11] MEDS: ALBUTEROL SO4 HFA INHALER IH PRN (21:47)
[2023-02-11] MEDS: traZODone HCL 50 MG TABLET (FP) PO SCH (21:48)
[2023-02-11] MEDS: THIAMINE HCL 100 MG TABLET (FP) PO SCH (21:48)
[2023-02-12] MEDS: methaDONE HCL 40 MG DISPERSABLE TABLET PO SCH (05:38)
[2023-02-12] MEDS: HYDROCHLOROTHIAZIDE 25 MG TABLET (FP) PO SCH (05:38)
[2023-02-12 07:00] VITALS: RESP 18
[2023-02-12] MEDS: NICOTINE 14 MG/24 HOURS TOPICAL PATCH TD SCH (10:05)
[2023-02-12] MEDS: LACTULOSE 20 GM/30 ML UDC (FOR ORAL USE ONLY) PO SCH ×2 (10:05→22:20)
[2023-02-12] MEDS: PANTOPRAZOLE 40 MG TABLET PO SCH (10:05)
[2023-02-12] MEDS: FERROUS SO4 300 MG/5 ML ORAL SOLN UNIT DOSE CUPS PO SCH (10:05)
[2023-02-12] MEDS: amLODIPine BESYLATE 10 MG TABLET (FP) PO SCH (10:06)
[2023-02-12] MEDS: PRENATAL VITAMINS W/ FOLIC ACID TABLET (FP) PO SCH (10:06)
[2023-02-12] MEDS: HYDROCORTISONE 0.5% TOPICAL CREAM 30 GM TUBE TP PRN ×2 (10:09→22:20)
[2023-02-12] MEDS: ZINC OXIDE 20% TOPICAL OINTMENT 30 GM TUBE TP PRN (10:09)
[2023-02-12] MEDS: METHYL SALICYLATE/MENTHOL OINT 30 GM TUBE TP SCH ×2 (10:38→22:20)
[2023-02-12] MEDS: BENZOCAINE/MENTHOL (CHLORASEPTIC ) LOZENGE MM PRN (13:01)
[2023-02-12] MEDS: ARIPiprazole 5 MG TABLET PO SCH (22:19)
[2023-02-12] MEDS: THIAMINE HCL 100 MG TABLET (FP) PO SCH (22:20)
[2023-02-12] MEDS: traZODone HCL 50 MG TABLET (FP) PO SCH (22:24)
[2023-02-13] MEDS: methaDONE HCL 40 MG DISPERSABLE TABLET PO SCH (05:46)
[2023-02-13] MEDS: HYDROCHLOROTHIAZIDE 25 MG TABLET (FP) PO SCH (05:46)
[2023-02-13] MEDS: amLODIPine BESYLATE 10 MG TABLET (FP) PO SCH (09:47)
[2023-02-13] MEDS: PANTOPRAZOLE 40 MG TABLET PO SCH (09:47)
[2023-02-13] MEDS: METHYL SALICYLATE/MENTHOL OINT 30 GM TUBE TP SCH ×2 (09:48→21:53)
[2023-02-13] MEDS: FERROUS SO4 300 MG/5 ML ORAL SOLN UNIT DOSE CUPS PO SCH (09:48)
[2023-02-13] MEDS: LACTULOSE 20 GM/30 ML UDC (FOR ORAL USE ONLY) PO SCH ×2 (09:49→21:53)
[2023-02-13] MEDS: NICOTINE 14 MG/24 HOURS TOPICAL PATCH TD SCH (09:49)
[2023-02-13] MEDS: PRENATAL VITAMINS W/ FOLIC ACID TABLET (FP) PO SCH (09:51)
[2023-02-13] MEDS: traZODone HCL 50 MG TABLET (FP) PO SCH (21:52)
[2023-02-13] MEDS: THIAMINE HCL 100 MG TABLET (FP) PO SCH (21:52)
[2023-02-13] MEDS: ARIPiprazole 5 MG TABLET PO SCH (21:52)
[2023-02-14] MEDS: methaDONE HCL 40 MG DISPERSABLE TABLET PO SCH (05:59)
[2023-02-14] MEDS: HYDROCHLOROTHIAZIDE 25 MG TABLET (FP) PO SCH (05:59)
[2023-02-14] MEDS: PRENATAL VITAMINS W/ FOLIC ACID TABLET (FP) PO SCH (09:49)
[2023-02-14] MEDS: LACTULOSE 20 GM/30 ML UDC (FOR ORAL USE ONLY) PO SCH ×2 (09:49→21:37)
[2023-02-14] MEDS: amLODIPine BESYLATE 10 MG TABLET (FP) PO SCH (09:50)
[2023-02-14] MEDS: PANTOPRAZOLE 40 MG TABLET PO SCH (09:50)
[2023-02-14] MEDS: METHYL SALICYLATE/MENTHOL OINT 30 GM TUBE TP SCH ×2 (09:51→21:38)
[2023-02-14] MEDS: COLLOIDAL OATMEAL 1 BAR EACH TP PRN (09:51)
[2023-02-14] MEDS: FERROUS SO4 300 MG/5 ML ORAL SOLN UNIT DOSE CUPS PO SCH (09:52)
[2023-02-14] MEDS: NICOTINE 14 MG/24 HOURS TOPICAL PATCH TD SCH (09:53)
[2023-02-14] MEDS: THIAMINE HCL 100 MG TABLET (FP) PO SCH (21:37)
[2023-02-14] MEDS: ARIPiprazole 5 MG TABLET PO SCH (21:38)
[2023-02-14] MEDS: traZODone HCL 50 MG TABLET (FP) PO SCH (21:38)
[2023-02-15] MEDS: HYDROCHLOROTHIAZIDE 25 MG TABLET (FP) PO SCH (05:59)
[2023-02-15] MEDS: methaDONE HCL 40 MG DISPERSABLE TABLET PO SCH (05:59)
[2023-02-15 06:29] VITALS: BP 142/60; PULSE 66; TEMP 98.1
[2023-02-15] MEDS: PANTOPRAZOLE 40 MG TABLET PO SCH ×2 (09:30→09:38)
[2023-02-15] MEDS: amLODIPine BESYLATE 10 MG TABLET (FP) PO SCH ×2 (09:30→09:38)
[2023-02-15] MEDS: PRENATAL VITAMINS W/ FOLIC ACID TABLET (FP) PO SCH ×2 (09:30→09:38)
[2023-02-15] MEDS: FERROUS SO4 300 MG/5 ML ORAL SOLN UNIT DOSE CUPS PO SCH ×2 (09:39→10:38)
[2023-02-15] MEDS: METHYL SALICYLATE/MENTHOL OINT 30 GM TUBE TP SCH (09:40)
[2023-02-15] MEDS: NICOTINE 14 MG/24 HOURS TOPICAL PATCH TD SCH (09:40)
[2023-02-15] MEDS: LACTULOSE 20 GM/30 ML UDC (FOR ORAL USE ONLY) PO SCH (09:40)
== END 2023-02-15 10:00 | disposition home or self-care (01) | DRG 895 ==
LOC: YASAS 14:51 → Y5N 14:52
PROVIDERS: ADMIT Allergy & Immunology; ATTEND Psychiatry & Neurology Pain Medicine
PROC: HZ42ZZZ Group Counseling for Substance Abuse Treatment, Cognitive-Behavioral (ICD-10-PCS; principal; 2023-01-25)
DX: F11.20 Opioid dependence, uncomplicated (principal); F10.20 Alcohol dependence, uncomplicated; F17.210 Nicotine dependence, cigarettes, uncomplicated; I10 Essential (primary) hypertension; L30.9 Dermatitis, unspecified; R79.89 Other specified abnormal findings of blood chemistry; R60.0 Localized edema; Z86.2 Personal history of diseases of the blood and blood-forming organs and certain disorders involving the immune mechanism; Z86.19 Personal history of other infectious and parasitic diseases; Z86.11 Personal history of tuberculosis
CPT/HCPCS: 36415; 80053; 82140; 83880; 85025; 85027; 90686; 93005; 93010; G0008